=== PATIENT | female | born 1985 ===

== ENCOUNTER 2017-12-18 08:00 | Inpatient (IN) ==
[2017-12-18] MEDS ORDERED: MAG-AL + SIM ORAL LIQUID 30ml PO PRN (08:27)
[2017-12-18] MEDS ORDERED: LIDOCAINE 1% (10mg/ml) 2mL INJ PF SDV ID PRN (08:27)
[2017-12-18] MEDS ORDERED: OXYTOCIN DRIP 30 UNIT/500 ML ML IV PRN (08:27)
[2017-12-18] MEDS ORDERED: METHYLERGONOVINE 0.2 MG/ML INJECTION IM PRN (08:27)
[2017-12-18] MEDS ORDERED: ACETAMINOPHEN 500 MG TABLET PO PRN (08:27)
[2017-12-18] MEDS ORDERED: CALCIUM CARBONATE Chewable 500mg TABLET PO PRN (08:27)
[2017-12-18] MEDS ORDERED: CARBOPROST 250 MCG/ML INJECTION IM PRN (08:27)
--- OUTSIDE RECORDS SUMMARY | 2017-12-18 08:32 | External Medical Summary | Continuity of Care Document ---
:1985 Author Organization [facility] Address [address] [place], [place] [id number] Phone Care Team Providers Name Role Phone Vignesh Antonio MD Unavailable Unavailable Allergies, Adverse Reactions, Alerts Substance Reaction Severity Status Penicillins Rash Unknown Active Medications Medication Instructions Dosage Effective Status Comments Dates (start - stop) chlorhexidine place 15 - Active gluconate 0.12 % milliliter by mouthwash mucous membrane route 2 times every day in the mouth, swish in mouth for 30 seconds then spit out x 7 days butalbital-acetami take 1 - 2 Not Available - Active nophen-caffeine 50 capsule by oral mg-300 mg-40 mg route every 6 capsule hours as needed not to exceed 6 capsules per 24hrs Formula take 1 Tablet by - Active use NDC 28 mg iron-800 mcg Oral route every 92082861815 tablet day Problems Condition Effective Dates (start - stop) Clinical Status Suprvsn of preg w poor reprodctv or - obstet hx, first tri Pap Smear Screening, Cervix - 9 weeks gestation of - Encounter for suprvsn of normal - , first trimester Personal history of dis of the nervous - sys and sense organs Suprvsn of preg w poor reprodctv or - obstet hx, second tri Low lying placenta NOS or w/out - hemorrhage, second trimester 20 weeks gestation of - Personal history of dis of the nervous - sys and sense organs Suprvsn of preg w poor reprodctv or - obstet hx, second tri 17 weeks gestation of - Encounter for suprvsn of normal - , second trimester Personal history of dis of the nervous - sys and sense organs Encounter for suprvsn of normal - , first trimester 13 weeks gestation of - Personal history of dis of the nervous - sys and sense organs Encounter for suprvsn of normal - , second trimester 20 weeks gestation of - Chronic Anemia Active Polycystic Ovarian Syndrome Active Procedures Procedure Date Unknown Results Test Name Date and Time Measure Units Reference Range Abnormal Flag Comments Unknown Advance Directives Directive Yes / No Effective Date File Name Unknown Encounters Encounter Practice Location Reason(s) Diagnoses Date Provider Care Team Description For Visit Members [facility] Suprvsn of preg w Sep-0 Sobbing In Womens poor reprodctv or [facility], obstet hx, second 7 700 PO Box triLow lying Medical 1522, placenta NOS or [facility], w/out hemorrhage, Drive, [place], second Suite , [email or web address] weeks 120, [place] gestation of [place], tel:+ pregnancy[place], [place] [id number], the nervous sys [place]. and sense organs tel:[phone] [facility] Encounter for Sep-0 Jer In Womens Ultrasound suprvsn of normal 7-201 Gabby. Health WANDER, , second 7 700 PO Box [email or web address] weeks Medical 1522, gestation of [facility], Dr [facility], 120, , [facility] [place], tel:[phone] , [place]. tel:[phone] [facility] Aug-2 Jer In Womens 5-201 Gabby. Health WANDER, 7 700 PO Box Medical 1522, Cornelia Kevin, Skyler Small [place], 120, , [place], tel:[phone] [address] , [place]. tel:[phone] Timothy [place] Suprvsn of preg w Aug-2 Jer Referring In Womens poor reprodctv or 2-201 Gabby. Provider: Gregory VIRAMONTES, obstet hx, second 7 700 Vignesh PO [address] [email or web address] weeks Medical Marisela L, 1522, gestation of Center [address] [place] [address], pregnancyEncounte , [facility], r for suprvsn of 120, Drive, , normal , [place], [place], [address]. tel: trimesterPersonal tel: history of dis of , [place]. [phone] the nervous sys tel: and sense organs [phone] Timothy [place] Jul-2 Jer In Womens 1-201 Gabby. Gregory VIRAMONTES, 7 700 PO Box Medical 1522, Center [place], , [facility], 120, , [place], [facility], tel:[phone] , [place]. tel: [phone] Timothy [place] Encounter for May- Jer Referring In Womens suprvsn of normal 4-201 Gabby. Provider: Gregory VIRAMONTES, , first 7 700 Vignesh PO Box [id number] weeks Medical Marisela L, 1522, gestation of Center [address] [place] [address], pregnancyPersonal , [facility], history of dis of [address], Drive, , the nervous sys Nav [place], [place], [address]. tel: tel: , [place]. [phone] tel: [phone] Timothy [place] Suprvsn of preg w Shin-2 Jer Referring In Womens poor reprodctv or 6-201 Gabby. Provider: Gregory VIRAMONTES, obstet hx, first 7 700 Vignesh PO Box triPap Smear Medical Marisela L, 1522, Screening, Center [address] [place] [address], Cervix9 weeks , [facility], gestation of [address], [address], , pregnancyEncounte Nav [place], [place], [address]. tel: normal , tel: [facility] , [place]. [phone] trimesterPersonal tel: history of dis of [id number] the nervous sys and sense organs Associates Nav Feb-2 Jer Referring In Womens 0-200 Gabby. Provider: Gregory VIRAMONTES, 8 700 [facility] Marisela L, 1522, Center [address] Kevin, [facility] [place], 120, Drive, [id number], [place], [address]. tel: [phone] tel: [phone] , . [id number] tel: [phone] Family History Family Member Diagnosis Age At Onset Maternal Grandmother Osteoporosis No family history of Breast Cancer No family history of Stroke No family history of Hypertension No family history of Cardiovascular Disease Maternal Grandmother Renal disease No family history of Lung Disease No family history of Epilepsy No family history of Colon Cancer No family history of Thyroid Disorder Maternal Grandmother Diabetes mellitus Mother Ovarian Cancer Immunizations Vaccine Date Status Comments Unknown Payers Payer name Insurance type Covered republican ID Authorization(s) [employer] [place] - Medicaid MC [id number] Social History Type Description Quantity Date Captured Unknown Vital Signs Date / Height Weight BMI Pulse Blood Temperature Respiratory Body Head BMI Time: Rate Pressure Rate Surface Circumference percentile Area Unknown Chief Complaint And Reason For Visit Unknown Chief Complaint And Reason For Visit Reason For Referral Reason For Referral Unknown Plan Of Care Date Type Action Status Appointment Monika Noel BOOKED Future Order: Radiology Order Complete OB Ultrasound > 14 Ordered Weeks ([id number]) Date Type Problem Goal Intervention Status Start Date Unknown. History Of Present Illness Encounter Date Complaint History Of Present Illness This patient has no known history of present illness Functional Status Encounter Date Functional Assessment Cognitive Assessment Unknown Medications Administered Medication Instructions Dosage Effective Dates (start - stop) Status Comments Drug Treatment Unknown Instructions Date Instruction Additional Information exercise indications for ultrasound influenza vaccine environmental / work hazards travel tobacco (ask, advise, assess, assist and arrange) alcohol illicit / recreational drugs use of any medications (including supplements, vitamins, herbs, OTC drugs) smoking counseling new ob handbook [facility] docs domestic violence HIV and other routine tests risk factors identified by history anticipated course of care nutrition and weight gain counseling, special diet toxoplasmosis precautions (cats / raw meat) sexual activity seat belt use childbirth classes / hospital facilities hospital registration genetic testing
--- OUTSIDE RECORDS SUMMARY | 2017-12-18 08:32 | External Medical Summary | Continuity of Care Document ---
:1985 Author Organization [facility] Address [address] [place], [place] [id number] Phone Care Team Providers Name Role Phone Vignesh Antonio MD Unavailable Unavailable Allergies, Adverse Reactions, Alerts Substance Reaction Severity Status Penicillins Rash Unknown Active Medications Medication Instructions Dosage Effective Status Comments Dates (start - stop) Formula 28 take 1 Tablet by - Active use NDC mg iron-800 mcg Oral route every [id number] tablet day Zofran ODT 4 mg take 1 by Oral Not Available - Active disintegrating route every 6 tablet hours as needed for nausea Keflex 500 mg take 1 capsule by 500 MG - Active capsule ORAL route 3 times every day for 5 days Problems Condition Effective Dates (start - stop) Clinical Status Suprvsn of preg w poor reprodctv or - obstet hx, first tri Pap Smear Screening, Cervix - Encounter for suprvsn of normal - , first trimester 9 weeks gestation of - Personal history of dis of the nervous - sys and sense organs Encounter for suprvsn of normal - , third trimester 30 weeks gestation of - Suprvsn of preg w poor reprodctv or - obstet hx, third tri Encounter for suprvsn of normal - , third trimester 38 weeks gestation of - Suprvsn of preg w poor reprodctv or - obstet hx, second tri Low lying placenta NOS or w/out - hemorrhage, second trimester 20 weeks gestation of - Personal history of dis of the nervous - sys and sense organs Suprvsn of preg w poor reprodctv or - obstet hx, second tri Low lying placenta NOS or w/out - hemorrhage, second trimester Encounter for suprvsn of normal - , second trimester 21 weeks gestation of - Suprvsn of preg w poor reprodctv or - obstet hx, second tri Encounter for suprvsn of normal - , second trimester 17 weeks gestation of - Personal history of dis of the nervous - sys and sense organs Suprvsn of preg w poor reprodctv or - obstet hx, third tri Decreased movements, third - trimester, unsp Low Lying Placenta Nos Or W/out - Hemorrhage, Third Trimester 28 weeks gestation of - Suprvsn of preg w poor reprodctv or - obstet hx, third tri Encounter for suprvsn of normal - , third trimester 28 weeks gestation of - Suprvsn of preg w poor reprodctv or - obstet hx, third tri Abnormal Pap, ASCUS Cervical high risk HPV DNA test positive Encounter for suprvsn of normal - , third trimester 32 weeks gestation of - Suprvsn of preg w poor reprodctv or - obstet hx, third tri 37 weeks gestation of - Suprvsn of preg w poor reprodctv or - obstet hx, third tri Encounter for suprvsn of normal - , third trimester 34 weeks gestation of - Decreased movements, second - trimester, unsp Encounter for suprvsn of normal - , second trimester 23 weeks gestation of - Low Lying Placenta Nos Or W/out - Hemorrhage, Second Trimester Encounter for suprvsn of normal - , second trimester 26 weeks gestation of - Hematuria, unspecified - Encounter for suprvsn of normal - , third trimester 35 weeks gestation of - Encounter for suprvsn of normal - , first trimester 13 weeks gestation of - Personal history of dis of the nervous - sys and sense organs Encounter for suprvsn of normal - , second trimester 20 weeks gestation of - Encounter for suprvsn of normal - , third trimester 37 weeks gestation of - Personal history of dis of the nervous - sys and sense organs Chronic Anemia Active Polycystic Ovarian Syndrome Active Procedures Procedure Date Unknown Results Test Name Date and Time Measure Units Reference Range Abnormal Flag Comments Unknown Advance Directives Directive Yes / No Effective Date File Name Unknown Encounters Encounter Practice Location Reason(s) Diagnoses Date Provider Care Team Description For Visit Members Timothy [place] Suprvsn of preg w Jer In Womens poor reprodctv or 0-201 Gabby. Health [place], obstet hx, third 8 700 PO Box triEncounter for Medical 152, suprvsn of normal [facility], , third Skyler Small, [email or web address] weeks 120, , gestation of [facility] [place], tel: [phone] , [place]. tel: [phone] Timothy [place] Encounter for Dec-0 Ivan Referring In Womens suprvsn of normal 3-201 Crow. 700 Provider: Health WANDER, , third 8 Medical Gabby PO Box [id number] weeks Center Jer L, 1522, gestation of Skyler Small [place], pregnancyPersonal 120, Medical [place], history of dis of [address] [place] [address] , the nervous sys FRANCES, Skyler 120, [place] and sense organs [id number] Terry, tel: , [place]. [place], tel: [phone]. [id number] tel:[phone] Timothy [place] Suprvsn of preg w Daren-0 Jer In Womens Ultrasound poor reprodctv or 3-201 Gabby. Health WANDER, obstet hx, third 8 700 PO Box [email or web address] weeks Medical 1522, gestation of [facility], Skyler Small, 120, [id number], [place], tel:[phone] , [place]. tel: [phone] [facility] Dec-2 Jer In Womens 2-201 Gabby. Health WANDER, 7 700 PO Box Medical 1522, [facility], Skyler Small, 120, [id number], [place], tel:+ [phone] , [place]. tel: [phone] [facility] Hematuria, Dec-2 Jer In Womens unspecifiedEncoun 0-201 Gabby. Health WANDER, [facility] for suprvsn 7 700 PO Box of normal Medical 1522, , third [facility], [email or web address] weeks Skyler Small, gestation of 120, , [place], tel:[phone] , [place]. tel: [phone] [facility] Suprvsn of preg w Dec-1 Jre In Womens poor reprodctv or 3-201 Gabby. Health WANDER, obstet hx, third 7 700 PO Box triEncounter for Medical 1522, suprvsn of normal [facility], , third Skyler Small, [email or web address] weeks 120, [id number], gestation of [place], tel:[phone] , [place]. tel: [phone] [facility] Suprvsn of preg w Nov-2 Jer In Womens poor reprodctv or 9-201 Gabby. Health WANDER, obstet hx, third 7 700 PO Box triAbnormal Pap, Medical 1522, ASCUSCervical [facility], high risk HPV DNA Skyler Small, test 120, , positiveEncounter [facility] for suprvsn of [place], tel:[phone] normal , [phone] third [id number] , [place]. weeks gestation tel: of [phone] [facility] Encounter for Nov-1 Jer In Womens suprvsn of normal 5-201 Gabby. Health [place], , third 7 700 PO Box [id number] weeks Medical 1522, gestation of [facility], Skyler Small, 120, [id number], [place], tel:[phone] , [place]. tel: [phone] [facility] Suprvsn of preg w Nov-0 Jer In Womens poor reprodctv or 1-201 Gabby. Health WANDER, obstet hx, third 7 700 PO Box triEncounter for Medical 1522, suprvsn of normal [facility], , third Skyler Small, [id number] weeks 120, , gestation of [place], [place], tel:901 , [place]. tel: [phone] [facility] Suprvsn of preg w Nov-0 Jer In Womens Ultrasound poor reprodctv or 1-201 Gabby. Health WANDER, obstet hx, third 7 700 PO Box triDecreased Medical 1522, movements, [facility], third trimester, Skyler Small, unspLow Lying 120, , Placenta Nos Or [place], [place] W/out Hemorrhage, [place], tel: Third [id number] [phone] [id number] weeks gestation , [place]. of tel: [phone] Timothy [place] Low Lying Oct-1 Jer Referring In Womens Placenta Nos Or 8-201 Gabby. Provider: Health WANDER, W/out Hemorrhage, 7 700 Gabby PO Box Second Medical Jer L, 1522, TrimesterEncounte Center [address] [place] [address], r for suprvsn of Skyler Small, normal , 120, Center [address] [id number], second Skyler [place] 120, [place] [id number] weeks Terry DANIELS, tel: gestation of [phone] [place], , [place]. [id number]. tel: tel:[phone] [facility] Decreased Sep-2 Jer In Womens movements, second 7-201 Gabby. Health [place], trimester, 7 700 PO Box unspEncounter for Medical 1522, suprvsn of normal Center [place], , second Skyler Small, [email or web address] weeks 120, , gestation of [place], [place], tel: [phone] [address] , [place]. tel: [phone] [facility] Suprvsn of preg w Sep-1 Jer In Womens poor reprodctv or 9-201 Gabby. Health WANDER, obstet hx, second 7 700 PO Box triLow lying Medical 1522, placenta NOS or [facility], w/out hemorrhage, Skyler Small, second 120, , trimesterEncounte [place], r for suprvsn of [place], tel: normal , [phone] [address] second , [place]. [id number] weeks tel: gestation of [phone] [facility] Suprvsn of preg w Sep-0 Sobbing In Womens poor reprodctv or 7-201 Mick. Health WANDER, obstet hx, second 7 700 PO Box triLow lying Medical 1522, placenta NOS or Center [place], w/out hemorrhage, Drive, [place], second Suite , [id number] weeks 120, [place] gestation of [place], tel: pregnancy[place] [address], the nervous sys [place]. and sense organs tel: [phone] [facility] Encounter for Sep-0 Jer In Womens Ultrasound suprvsn of normal 7-201 Gabby. Health WANDER, , second 7 700 PO Box [id number] weeks Medical 1522, gestation of [facility], Skyler Small, 120, , [place], tel:[phone] , [place]. tel: [phone] [facility] Suprvsn of preg w Aug-2 Jer Referring In Womens poor reprodctv or 2-201 Gabby. Provider: Health WANDER, obstet hx, second 7 700 Vignesh PO Box triEncounter for Medical Marisela L, 1522, suprvsn of normal Center 1010 [place], , second Skyler Small [facility], [id number] weeks 120, Drive, , gestation [place], [place], [address]. tel: history of dis of [phone] tel: the nervous sys , [place]. [id number] and sense organs tel: [phone] [facility] Encounter for Jer Referring In Womens suprvsn of normal 4-201 Gabby. Provider: Health WANDER, , first 7 700 Vignesh PO Box [email or web address] weeks Medical Marisela L, 1522, gestation of Center 101 [place], pregnancyPersonal , [facility], history of dis of 120, Drive, , the nervous sys Nav [place], [place], [address]. tel: tel: , [place]. [phone] tel: [phone] [facility] Suprvsn of preg w Shin- Jer Referring In Womens poor reprodctv or 6-201 Gabby. Provider: Health WANDER, obstet hx, first 7 700 Vignesh PO Box triPap Smear Medical Marisela L, 1522, Screening, Center [facility] [place], CervixEncounter , [facility], for suprvsn of 120, Drive, , normal , Nav [place], first trimester9 [place], [address]. tel: weeks gestation tel: , [place]. [phone] pregnancyPersonal tel: history of dis of [phone] the nervous sys and sense organs Associates Nav Fe Jer Referring In Womens 0-200 Gabby. Provider: Gregory VIRAMONTES, 8 700 Vignesh PO Box Medical Marisela L, 1522, Center 101 Kevin, , [facility], 120, Drive, , Nav [place], [facility] [place], [address]. tel: tel: , [place]. [phone] tel: [phone] Family History Family Member Diagnosis Age At [...] Ovarian Cancer Immunizations Vaccine Date Status Comments Tdap completed Source: New Immunization Record Influenza, injectable, completed Source: New Immunization Record quadrivalent, preservative free, 3 yrs or older Payers Payer name Insurance type Covered libertarian ID Authorization(s) [employer] [place] - Medicaid MC [id number] [employer] [place] Medicaid MC [id number] [employer] [place] - Medicaid [place] [id number] Social History Type Description Quantity Date Captured Unknown Vital Signs Date / Height Weight BMI Pulse Blood Temperature Respiratory Body Head BMI Time: Rate Pressure Rate Surface Circumference percentile Area Unknown Chief Complaint And Reason For Visit Unknown Chief Complaint And Reason For Visit Reason For Referral Reason For Referral Unknown Plan Of Care Date Type Action Status Appointment Monika Noel BOOKED Appointment Monika Noel BOOKED Appointment Monika Noel BOOKED Future Order: Radiology Order Ultrasound OB Follow-up ([id number]) Ordered Future Order: Radiology Order Ultrasound OB Follow-up ([id number]) Ordered Future Order: Radiology Order Complete OB Ultrasound > 14 Ordered Weeks ([id number]) Date Type Problem Goal Intervention Status Start [...] supplements, vitamins, herbs, OTC drugs) smoking counseling domestic violence new ob handbook [facility] docs HIV and other routine tests risk factors identified by history anticipated course of care nutrition and weight gain counseling, special diet toxoplasmosis precautions (cats / raw meat) sexual activity seat belt use childbirth classes / hospital facilities hospital registration genetic testing
--- OUTSIDE RECORDS SUMMARY | 2017-12-18 08:32 | External Medical Summary | Continuity of Care Document ---
:1985 Author Organization [email or web address] Address [address] [place], [place] [id number] Phone Care Team Providers Name Role Phone Vignesh Antonio MD Unavailable Unavailable Allergies, Adverse Reactions, Alerts Substance Reaction Severity Status Penicillins Rash Unknown Active Medications Medication Instructions Dosage Effective Status Comments Dates (start - stop) ferrous sulfate 325 take 1 tablet by 325 MG - Active mg (65 mg iron) oral route every tablet day Formula 28 take 1 Tablet by - Active use NDC mg iron-800 mcg Oral route every [id number] tablet day Zofran ODT 4 mg take 1 by Oral Not Available - Active disintegrating route every 6 tablet hours as needed for nausea Problems Condition Effective Dates (start - stop) [...] the nervous - sys and sense organs Low Lying Placenta Nos Or W/out - Hemorrhage, Second Trimester Encounter for suprvsn of normal - , second trimester 26 weeks gestation of - Encounter for suprvsn [...] second trimester 23 weeks gestation of - Encounter for suprvsn of normal - , first trimester 13 weeks gestation of - Personal history of dis of the nervous - sys and sense organs Encounter for suprvsn of normal - , second trimester 20 weeks gestation of - Chronic Anemia Active Polycystic Ovarian Syndrome Active Procedures Procedure Date Colposcopy Of The Cervix Including Upper/adjacent Vagina OB Visit No Charge Results Test Name Date and Time Measure Units Reference Range Abnormal Flag Comments Unknown Advance Directives Directive Yes / No Effective Date File Name Unknown Encounters Encounter Practice Location Reason(s) Diagnoses Date Provider Care Team Description For Visit Members Timothy Stewart Suprvsn of preg w Dec-1 Jer In Womens poor reprodctv or 3-201 Gabby. Health PA, obstet hx, third 7 700 PO Box triEncounter for Medical 1522, suprvsn of normal [facility], third Skyler Small, weeks 120, , gestation of [facility] [place], tel:+ [phone] , [place]. tel: [phone] Timothy Stewart Suprvsn of preg w Nov-2 Jer In Womens poor reprodctv or 9-201 Gabby. Health PA, obstet hx, third 7 700 PO Box triAbnormal Pap, Medical 1522, ASCUSCervical [facility], high risk HPV DNA Skyler Small, test 120, , positiveEncounter [facility] for suprvsn of [place], tel:[phone] normal , [phone] [id number] third [email or web address] , [place]. weeks gestation tel: of [phone] Timothy Stewart Encounter for Nov-1 Jer In Womens suprvsn of normal 5-201 Gabby. [facility], , third 7 700 PO Box [email or web address] weeks Medical 1522, gestation of [facility] Skyler Small, 120, [id number], [facility] [place], tel:[phone] , [place]. tel: [phone] Timothy Stewart Suprvsn of preg w Nov-0 Jer In Womens poor reprodctv or 1-201 Gabby. Health [place], obstet hx, third 7 700 PO Box triEncounter for Medical 1522, suprvsn of [facility], third Skyler Small, [id number] weeks 120, [id number], gestation of [place], [place], tel:[phone] , [place]. tel: [phone] [facility] Suprvsn of preg w Nov-0 Jer In Womens Ultrasound poor reprodctv or 1-201 Gabby. Health PA, obstet hx, third 7 700 PO Box triDecreased Medical 1522, [facility], [facility], Skyler Small, unspLow Lying 120, , Placenta Nos Or [place], [place] W/out Hemorrhage, [place], tel: Third [id number] [phone] weeks gestation , [place]. of tel: [phone] [facility] Low Lying Oct-1 Jer Referring In Womens Placenta Nos Or 8-201 Gabby. Provider: Health PA, W/out Hemorrhage, 7 700 Gabby PO Box Second Medical Jer L, 1522, [facility] [address] [place] [address], r for suprvsn of Skyler Small, normal , 120, Center , second Terry Skyler 120, [place] weeks [place], [place], tel: gestation of [place], , [place]. [id number]. tel: tel: [phone] Associates [facility] Decreased Sep-2 Jer In Womens movements, second 7-201 Gabby. Health PA, trimester, 7 700 PO Box unspEncounter for Medical 1522, suprvsn of normal [facility] [place], , second Skyler Small, [id number] weeks 120, [id number], gestation of [place], [place], tel:[phone] , [place]. tel: [phone] Timothy [place] Suprvsn of preg w Sep-1 Jer In Womens poor reprodctv or 9-201 Gabby. Health PA, obstet hx, second 7 700 PO Box triLow lying Medical 1522, placenta NOS or Center [place], w/out hemorrhage, Skyler Small, second 120, [id number], trimesterEncounte [place], r for suprvsn of [place], tel: normal , [facility] , [place]. [id number] weeks tel: gestation of [phone] [facility] Suprvsn of preg w Sep-0 Sobbing In Womens poor reprodctv or 7-201 Mick. Health WANDER, obstet hx, second 7 700 PO Box triLow lying Medical 1522, placenta NOS or [facility], w/out hemorrhage, Drive, [place], second Suite , [id number] weeks 120, [place] gestation of [place], tel: pregnancyPersonal [place], history of dis of , the nervous sys [place]. and sense organs tel:[phone] Timothy Stewart Encounter for Sep-0 Jer In Womens Ultrasound suprvsn of normal -201 Gabby. Health [place], , second 7 700 PO Box [id number] weeks Medical 1522, gestation of [facility], Dr [facility], 120, , [place], [facility], tel: , [place]. tel:[phone] [facility] Suprvsn of preg w Aug-2 Jer Referring In Womens poor reprodctv or 2-201 Gabby. Provider: Health WANDER, obstet hx, second 7 700 Vignesh PO Box triEncounter for Medical Marisela L, 1522, suprvsn of normal Center [address] [place] [address], , second Dr [facility], [email or web address] weeks 120, Drive, , gestation of Nav [place], [place], [address]. tel: history of dis of [phone] tel: the nervous sys , [place]. [id number] and sense organs tel: [phone] Timothy [place] Encounter for Guero-2 Jer Referring In Womens suprvsn of normal 4-201 Gabby. Provider: Health WANDER, , first 7 700 Vignesh PO Box weeks Medical Marisela L, 1522, gestation of Center [address] [place] [address], pregnancyPersonal Dr [facility], history of dis of [address], Drive, , the nervous sys Nav [place], [place], [address]. tel:[phone] tel: , . [id number] tel: [phone] [facility] Suprvsn of preg w Shin- Jer Referring In Womens poor reprodctv or 6-201 Gabby. Provider: Gregory VIRAMONTES, obstet hx, first 7 700 Vignesh PO Box triPap Smear Medical Marisela L, 1522, Screening, Center 1010 Kevin CervixEncdona Small, [facility], for suprvsn of 120, Drive, [id number], normal , [facility] first trimester9 [place], [address]. tel: weeks gestation [phone] tel: , [place]. [phone] pregnancyPersonal tel: history of dis of [phone] the nervous sys and sense organs Associates Nav Jer Referring In Womens 0-200 Gabby. Provider: Gregory VIRAMONTES, 8 700 Vignesh PO Box Medical Marisela L, 1522, Center [address] Kevin, [facility], [address], Drive, [id number], Nav [place], [place], [address]. tel: [phone] tel: , [place]. [id number] tel: [phone] Family History Family Member Diagnosis Age At [...] Ovarian Cancer Immunizations Vaccine Date Status Comments Influenza, injectable, completed Source: New Immunization Record quadrivalent, preservative free, 3 yrs or older Payers Payer name Insurance type Covered alliance party ID Authorization(s) [employer] [place] Medicaid MC [id number] [employer] [place] [id number] Social History Type Description Quantity Date Captured Alcohol Use Details Caffeine Use Details Unknown Tobacco Use Status Unknown Smoking Status Never smoker Vital Signs Date / Height Weight BMI [...] Future Order: Radiology Order Ultrasound OB Follow-up ([id number]) Ordered Future Order: Radiology Order Complete OB Ultrasound > 14 Ordered Weeks ([id number]) Date Type Problem Goal Intervention Status Start [...]
--- OUTSIDE RECORDS SUMMARY | 2017-12-18 08:32 | External Medical Summary | Continuity of Care Document ---
:1986 Author Organization [facility] Address [address] [place], [place] [id number] Phone Care Team Providers Name Role Phone Vignesh Antonio MD Unavailable Unavailable Allergies, Adverse Reactions, Alerts Substance Reaction Severity Status Penicillins Rash Unknown Active Medications Medication Instructions Dosage Effective Status Comments Dates (start - stop) butalbital-acet take 1 - 2 Not Available - Active aminophen-caffe capsule by oral ine 50 mg-300 route every 6 mg-40 mg hours as needed capsule not to exceed 6 capsules per 24hrs take 1 Tablet by - Active use NDC Formula 28 mg Oral route every [id number] iron-800 mcg day tablet Zofran 4 mg take 1 tablet by 4 MG - Active tablet ORAL route every 8 hours as needed for nausea butalbital-acet take 1 - 2 Not Available - No Longer do not take any aminophen-caffe capsule by oral Active additional ine 50 mg-300 route every 6 tylenol when mg-40 mg hours as needed using this capsule not to exceed 6 medication capsules per 24hrs Problems Condition Effective Dates (start - stop) [...] second tri 17 weeks gestation of - Personal history of dis of the nervous - sys and sense organs Encounter for suprvsn of normal - , second trimester Encounter for suprvsn of normal - , first trimester Personal history of dis of the nervous - sys and sense organs 13 weeks gestation of - Chronic Anemia Active Polycystic Ovarian Syndrome Active Procedures Procedure Date Unknown Results Test Name Date and Time Measure Units Reference Range Abnormal Flag Comments Unknown Advance Directives Directive Yes / No Effective Date File Name Unknown Encounters Encounter Practice Location Reason(s) Diagnoses Date Provider Care Team Description For Visit Members Timothy [place] Suprvsn of preg w Jul- Jer Referring In Womens poor reprodctv or 2-201 Gabby. Provider: Gregory VIRAMONTES, obstet hx, second 7 700 Vignesh PO Box tri17 weeks Medical Marisela L, 1522, gestation of [address], [facility] , [facility], history of dis of [address], Drive, , the nervous sys Nav [place], [place], [address]. tel:+ organsEncounter [phone] tel: for suprvsn of , [place]. [id number] normal , tel: second trimester [phone] Associates [facility] Jul-2 Jer In Womens 1-201 Gabby. Gregory VIRAMONTES, 7 700 PO Box Medical 1522, [address] Kevin, [facility], 120, [id number], [facility], tel:[phone] , [place]. tel: [phone] Timothy [place] Jul-1 Jer In Womens 5-201 Gabby. Gregory VIRAMONTES, 7 700 PO Box Medical 1522, [address] Kevin, [facility], 120, [id number], [facility], tel:[phone] , [place]. tel: [phone] Timothy [place] Encounter for Jer Referring In Womens suprvsn of normal 4-201 Gabby. Provider: Gregory VIRAMONTES, , first 7 700 Vignesh PO Box trimesterPersonal Medical Marisela L, 1522, history of dis of Center 1010 Kevin, the nervous sys , [facility], and sense [email or web address] [address], Drive, , weeks gestation [place], [place], [address]. tel: [phone] tel: , [place]. [id number] tel: [phone] [facility] Suprvsn of preg w Shin- Jer Referring In Womens poor reprodctv or 6-201 Gabby. Provider: Health PA, obstet hx, first 7 700 Vignesh PO Box triPap Smear Medical Marisela L, 1522, Screening, Center [facility] Kevin, CervixEncounter , [facility], for suprvsn of [address], [address], , normal , Nav [place], first trimester9 [place], [address]. tel: weeks gestation of [phone] [facility] [place]. [phone] history of dis of tel: the nervous sys [phone] and sense organs Associates Nav Jer Referring In Womens 0-200 Gabby. Provider: Gregory VIRAMONTES, 8 700 Vignesh PO Box Medical Marisela L, 1522, Center [facility] Dr Kevin, [facility], 120, Drive, , Nav [place], [place], [address]. tel: [phone] tel: , [place]. [id number] tel: [phone] Family History Family Member Diagnosis Age At [...] Unknown Payers Payer name Insurance type Covered libertarian ID Authorization(s) [employer] [place] - Medicaid MC [id number] Social History Type Description Quantity Date Captured [...] Monika Noel BOOKED Appointment Monika Noel BOOKED Date Type Problem Goal Intervention Status Start [...]
--- OUTSIDE RECORDS SUMMARY | 2017-12-18 08:32 | External Medical Summary | Continuity of Care Document ---
:1986 Author Organization [facility] Address [address] [place], [place] [id number] Phone Care Team Providers Name Role Phone Vignesh Antonio MD Unavailable Unavailable Allergies, Adverse Reactions, Alerts Substance Reaction Severity Status Penicillins Rash Unknown Active Medications Medication Instructions Dosage Effective Dates Status Comments (start - stop) chlorhexidine place 15 milliliter - Active gluconate 0.12 % by mucous membrane mouthwash route 2 times every day in the mouth, swish in mouth for 30 seconds then spit out x 7 days Formula 28 take 1 Tablet by - Active use NDC mg iron-800 mcg Oral route every [id number] tablet day Problems Condition Effective Dates (start [...] the nervous - sys and sense organs Decreased movements, second - trimester, unsp Encounter [...] Polycystic Ovarian Syndrome Active Procedures Procedure Date OB Visit No Charge Results Test Name Date and Time Measure Units Reference Range Abnormal Flag Comments Unknown Advance Directives Directive Yes / No Effective Date File Name Unknown Encounters Encounter Practice Location Reason(s) Diagnoses Date Provider Care Team Description For Visit Members Timothy [place] Decreased Sep-2 Jer In Womens movements, second Gabby. Health PA, trimester, 7 700 PO Box unspEncounter for Medical 1522, suprvsn of normal [facility], , second Skyler Small, [email or web address] weeks 120, , gestation of [facility] [place], tel:[phone] , [place]. tel: [phone] [facility] Suprvsn of preg w Sep-1 Jer In Womens poor reprodctv or 9-201 Gabby. Health PA, obstet hx, second 7 700 PO Box triLow lying Medical 1522, placenta NOS or [facility], w/out hemorrhage, Skyler Small, second 120, [id number], trimesterEncounte [place], r for suprvsn of [place], tel:[phone] normal , [phone] [id number] second , [place]. [id number] weeks tel: gestation of [phone] [facility] Suprvsn of preg w Sep-0 Sobbing In Womens poor reprodctv or 7-201 Mick. Health PA, obstet hx, second 7 700 PO Box triLow lying Medical 1522, placenta NOS or [facility], w/out hemorrhage, Drive, [place], second Suite , [email or web address] weeks 120, [place] gestation of [place], tel: pregnancyPersonal [place], history of dis of , the nervous sys [place]. and sense organs tel: [phone] Timothy [place] Encounter for Sep-0 Jer In Womens Ultrasound suprvsn of normal 7-201 Gabby. Health PA, , second 7 700 PO Box [email or web address] weeks Medical 1522, gestation of [facility], Dr [facility], 120, , [place], [place], tel:[phone] , [place]. tel: [phone] Timothy Stewart Suprvsn of preg w Aug-2 Jer Referring In Womens poor reprodctv or 2-201 Gabby. Provider: Health WANDER, obstet hx, second 7 700 Vignesh PO Box triEncounter for Medical Marisela L, 1522, suprvsn of normal Center [address] [place] [address], , second Dr [facility], [email or web address] weeks 120, Drive, , gestation [place] Nav [place], [place], [address]. tel: history of dis of tel: the nervous sys , [place]. [id number] and sense organs tel: [phone] Timothy Stewart Encounter for May-2 Jer Referring In Womens suprvsn of normal 4-201 Gabby. Provider: Health PA, , first 7 700 Vignesh PO Box [email or web address] weeks Medical Marisela L, 1522, gestation of [address], pregnancyPersonal Dr [facility], history of dis of 120, Drive, , the nervous sys Nav [place], [place], [address]. tel:[phone] tel: , [place]. [id number] tel: [phone] [facility] Suprvsn of preg w Jer Referring In Womens poor reprodctv or 6-201 Gabby. Provider: Gregory VIRAMONTES, obstet hx, first 7 700 Vignesh PO Box triPap Smear Medical Marisela L, 1522, Screening, Center 1010 Kevin CervixEncdona Small, [facility], for suprvsn of [address], Drive, [id number], normal , Nav [place], first trimester9 [place], [address]. tel: weeks gestation [phone] tel: , . [phone] pregnancyPersonal tel: history of dis of [phone] the nervous sys and sense organs Associates Nav Jer Referring In Womens 0-200 Gabby. Provider: Gregory VIRAMONTES, 8 700 Vignesh PO Box Medical Marisela L, 1522, Center [address] Dr Kevin, [facility], [address], Drive, [id number], Nav [place], [place], [address]. tel: [phone] tel:[phone] , [place]. [id number] tel: [phone] Family History Family Member Diagnosis Age At [...] Unknown Payers Payer name Insurance type Covered green party ID Authorization(s) [employer] [place] - Medicaid MC [id number] Social History Type Description Quantity Date Captured [...] Complete OB Ultrasound > 14 Ordered Weeks (78253) Date Type Problem Goal Intervention Status Start [...]
--- OUTSIDE RECORDS SUMMARY | 2017-12-18 08:32 | External Medical Summary | Continuity of Care Document ---
:1985 Author Organization [facility] Care Team Providers Name Role Phone TARA ANTONIO MD Unavailable Unavailable Insurance Providers Payer Name Policy Number Subscriber Name Relationship Brooke [facility] [id number] Monika Odonnell D 19 Self / Same As Patient Advance Directives Directive Response Recorded Date/Time Advanced Directives No 12/03/16 8:21am Type Living Will 12/03/16 8:21am Chief Complaint and Reason for Visit Chief Complaint Pain Reason for Visit Ovarian cyst Problems Active Problems Medical Problem Onset Date Status Abdominal pain ~03/19/2014 Resolved Acute upper respiratory infection Unknown Acute Adenotonsillar hypertrophy Unknown Resolved Breast infection Unknown Resolved Carpal tunnel syndrome Unknown Resolved Cellulitis Unknown Resolved Colonoscopy Unknown Resolved Diarrhea ~03/19/2014 Resolved Gastroenteritis ~09/25/2015 Acute HOME MED 05/10/2012 Resolved INTRAUT 05/10/2012 Jaw pain 01/14/2014 Resolved Malaise Unknown Acute Migraine ~09/25/2015 Acute NAUSEA MED GIVEN FOR HOME 05/10/2012 NAUSEA/CRAMPING 05/10/2012 Resolved Nausea and vomiting ~03/19/2014 Resolved Normal delivery procedure 10/15/2012 Resolved Ovarian cyst Unknown Acute Pain in toe 09/20/2013 Resolved Post-op pain Unknown Resolved Post-tonsillectomy hemorrhage ~09/10/2014 Resolved Right shoulder injury Unknown Acute Strep tonsillitis ~07/26/2014 Resolved Toothache 01/14/2014 Resolved Toothache Unknown Acute Upper respiratory infection ~10/21/2015 Acute Urinary tract infection ~09/25/2015 Acute Vaginal bleeding Unknown Acute Viral gastroenteritis Unknown Acute Medications Current Home Medications Medication Dose Units Route Directions Days/Qty Instructions Start Date Acetaminophen 325 Mg ORAL As Needed as 12/03/16 (Tylenol) 325 Mg needed for Pain Ibuprofen (Motrin) 200 Mg ORAL As Needed 12/03/16 200 Mg Oxycodone/Acetamino 1 Tab ORAL Every 4HRS as 12 12/03/16 phen 1 Tab needed for Pain Past Home Medications Medication Directions Ordered Status Acetaminophen 325 Mg Tab, 325 Mg 05/10/12 Discontinued Oral Ondansetron Hcl 4 Mg Tab, 4 Mg Every 6 Hours 05/10/12 Discontinued Oral Ibuprofen 600 Mg Tablet, 600 Mg Every 6 Hours as needed 10/16/12 Discontinued Oral Oxycodone/Acetaminophen 1 Each Q 6H Prn 10/16/12 Discontinued Tablet, 1 Tab Oral Methocarbamol 500 Mg Tablet, 500 Daily 09/20/13 Discontinued Mg Oral Ibuprofen (Motrin) 200 Mg As Needed 01/14/14 Discontinued Tablet, 2-4 Tab Oral Acetaminophen 500 Mg Tablet, 2 As Needed 01/14/14 Discontinued Tab Oral Promethazine Hcl 25 Mg Tab, 25 Every 6 Hours as needed for 03/19/14 Discontinued Mg Oral Abdominal Pain Acetaminophen/Hydrocodone Bitart Every 6 Hours as needed for 03/19/14 Discontinued 1 Each Tablet, 1 Each Oral Pain Polyethylene Glycol 3350 17 Gm As Directed 09/05/14 Discontinued Powd.pack, 17 Gm Oral Methocarbamol 500 Mg Tablet, 1-2 Q 6H Prn 09/06/14 Discontinued Tab Oral [No Meds] , 01/12/15 Discontinued Sulfamethoxazole/Trimethoprim 1 Twice A Day 01/12/15 Discontinued Each Tablet, 1 Tab Oral Tramadol Hcl 50 Mg Tablet, 1-2 Every 6 Hours as needed for 01/12/15 Discontinued Tab Oral Pain Citalopram Hydrobromide 20 Mg Daily 03/22/15 Discontinued Tablet, 20 Mg Oral Ondansetron 4 Mg Tab.rapdis, 4 Every 6 Hours as needed for 09/26/15 Discontinued Mg Oral Nausea Ciprofloxacin 500 Mg Tablet, 500 Twice A Day 09/26/15 Discontinued Mg Oral [No Home Meds] , Unknown Dose As Needed 09/26/15 Discontinued Azithromycin 6 Tab/Pkt Tablet, See Instructions 10/21/15 Discontinued 250 Mg Oral Clindamycin Hcl 300 Mg Capsule, Three Times A Day 12/29/15 Discontinued 300 Mg Oral Tramadol Hcl (Ultram) 50 Mg Every 6 Hours as needed for 12/29/15 Discontinued Tablet, 1-2 Tab Oral Pain Ondansetron Hcl 4 Mg Tab.rapdis, Every 6 Hours for 08/21/16 Discontinued 4 Mg Oral Nausea/Vomiting Cephalexin 500 Mg Capsule, 500 Four Times Daily 10/06/16 Discontinued Mg Oral Social History Query Response Start Date Stop Date Smoking Status Never smoker Hospital Discharge Instructions No hospital discharge instructions. Plan of Care Discharge Date 12/03/16 10:58am Disposition 01 HOME OR SELF-CARE Condition at Discharge Stable Instructions/Education Provided Ovarian Cyst (DC) Prescriptions See Medication Section Referrals TARA ANTONIO MD - Additional Instructions/Education Ibuprofen or Aleve as needed for pain Percocet 5/325 every 4 hours as needed for pain not relieved by over the counter medication Heat/cold per comfort Follow up with Dr. Antonio if not improved in 2-3 days REturn if symptoms worsen Some of your test results may not be complete prior to your leaving the Emergency Department. The Emergency Department is not authorized to give test results over the phone. Please contact the doctor's office listed in this packet of information for your final results. Follow up with your primary care physician or return to the Emergency Department for worsening or worrisome symptoms. * Emergency Department phone number: [phone], x [phone]* MEDICAL RECORD If you need copies of your X-rays, call [phone]. If you need copies of your medical record, including lab results, a signed authorization for release of records will be required. A telephone call for release of Health Information is not allowed. BILLING Billing can sometimes be confusing and frustrating. To help avoid confusion in the future, please take a moment to acquaint yourself with the billing parties for services. [employer] Emergency Room Services [facility] Phys[facility] X-rays [place] [facility] Patients will receive bills for services from the appropriate provider. If you have any questions about your [facility] bill, our staff will be happy to assist you. Please call [phone], and ask for the billing department. THANK YOU for choosing [facility] as your emergency care provider! Care Plan and Goals ~~Discharge Care Plan~~ Problem:pelvic pain Goal:reduce pain Instructions:follow up with pcp Functional Status No functional status results. Allergies, Adverse Reactions, Alerts Allergen Type Severity Reaction Status Last Updated Penicillin Allergy Unknown Active 10/06/16 Hydrocodone Adverse Reaction Mild ITCHING Active 10/06/16 Hydromorphone Adverse Reaction Mild feeling of warmth in head Active 12/03 latex Allergy Mild Active 10/06/16 Immunizations No immunization records. Vital Signs Acute Vital Signs Vital Response Date/Time Temperature (Fahrenheit) 97.4 12/03/2016 10:58am Pulse 78 bpm 12/03/2016 10:58am Respirations 20 12/03/2016 10:58am Height 5 ft 2 in Weight 205 lb Body Mass Index 37.0 kg/m^2 Results Laboratory Results Test Name Result Units Flags Reference Collection Result Comments Date/Time Date/Time White Blood Count 8.54 10^3uL 4.0-11.0 12/03/2016 12/03/2016 8:56am 9:04am Red Blood Count 4.49 10^6uL 4.00-5.00 12/03/2016 12/03/2016 8:56am 9:04am Hemoglobin 12.9 g/dL 12.0-15.5 12/03/2016 12/03/2016 8:56am 9:04am Hematocrit 37.00 % 35.00-45.00 12/03/2016 12/03/2016 8:56am 9:04am Mean Corpuscular 82 FL 80-100 12/03/2016 12/03/2016 Volume 8:56am 9:04am Mean Corpuscular 28.7 PG 26.0-34.0 12/03/2016 12/03/2016 Hemoglobin 8:56am 9:04am Mean Corpuscular 34.9 g/dL 31.0-37.0 12/03/2016 12/03/2016 Hemoglobin Concent 8:56am 9:04am Red Cell 12.8 % 11.8-15.6 12/03/2016 12/03/2016 Distribution Width 8:56am 9:04am Platelet Count 274 10^3uL 150-450 12/03/2016 12/03/2016 8:56am 9:04am Mean Platelet 9.9 FL H 6.0-9.5 12/03/2016 12/03/2016 Volume 8:56am 9:04am Neutrophils (%) 63 % 51-67 12/03/2016 12/03/2016 (Auto) 8:56am 9:04am Lymphocytes (%) 29 % 20-46 12/03/2016 12/03/2016 (Auto) 8:56am 9:04am Monocytes (%) 6 % 3-11 12/03/2016 12/03/2016 (Auto) 8:56am 9:04am Eosinophils (%) 2 % 0-4 12/03/2016 12/03/2016 (Auto) 8:56am 9:04am Basophils (%) 0 % 0-2 12/03/2016 12/03/2016 (Auto) 8:56am 9:04am Neutrophils # 5.4 X10^3 12/03/2016 12/03/2016 (Auto) 8:56am 9:04am Lymphocytes # 2.4 X10^3 12/03/2016 12/03/2016 (Auto) 8:56am 9:04am Monocytes # (Auto) 0.6 X10^3 12/03/2016 12/03/2016 8:56am 9:04am Eosinophils # 0.1 10^3uL 12/03/2016 12/03/2016 (Auto) 8:56am 9:04am Basophils # (Auto) 0.0 10^3uL 12/03/2016 12/03/2016 8:56am 9:04am Urine Collection CLEAN 12/03/2016 12/03/2016 Type CATCH 8:21am 8:37am Urine Color Yellow 12/03/2016 12/03/2016 8:21am 8:37am Urine Clarity Clear 12/03/2016 12/03/2016 8:21am 8:37am Urine pH 7.0 5.0 - 8.0 12/03/2016 12/03/2016 8:21am 8:37am Urine Specific 1.020 1.005-1.030 12/03/2016 12/03/2016 [place] 8:21am 8:37am Urine Protein Negative Negative 12/03/2016 12/03/2016 8:21am 8:37am Urine Glucose (UA) Negative Negative 12/03/2016 12/03/2016 8:21am 8:37am Urine RBC (Auto) Negative Negative 12/03/2016 12/03/2016 8:21am 8:37am Urine Ketones Negative Negative 12/03/2016 12/03/2016 8:21am 8:37am Urine Nitrite Negative Negative 12/03/2016 12/03/2016 8:21am 8:37am Urine Bilirubin Negative Negative 12/03/2016 12/03/2016 8:21am 8:37am Urine Urobilinogen 0.2 mg/dL 0.2-1.0 12/03/2016 12/03/2016 8:21am 8:37am Urine Leukocyte Negative Negative 12/03/2016 12/03/2016 Esterase 8:21am 8:37am Sodium Level 141 mmol/L 135-150 12/03/2016 12/03/2016 8:56am 9:14am Potassium Level 4.1 mmol/L 3.5-5.1 12/03/2016 12/03/2016 8:56am 9:14am Chloride Level 108 mmol/L 98-108 12/03/2016 12/03/2016 8:56am 9:14am Carbon Dioxide 21 mmol/L L 22-29 12/03/2016 12/03/2016 Level 8:56am 9:14am Anion Gap 16.4 MEQ/L H 3-15 12/03/2016 12/03/2016 8:56am 9:14am Blood Urea Nitrogen 9 mg/dL 7-18 12/03/2016 12/03/2016 8:56am 9:14am Creatinine 0.60 mg/dL 0.6-1.2 12/03/2016 12/03/2016 8:56am 9:14am BUN/Creatinine 15 10-20 12/03/2016 12/03/2016 Ratio 8:56am 9:14am Estimat Glomerular 142.0 12/03/2016 12/03/2016 Filtration Rate 8:56am 9:14am Estimated GFR 117.4 12/03/2016 12/03/2016 (Non- 8:56am 9:14am Ug[place] Glucose Level 96 mg/dL 70-110 12/03/2016 12/03/2016 8:56am 9:14am Calculated 271 mosm/L L 280-300 12/03/2016 12/03/2016 Osmolality 8:56am 9:14am Calcium Level 9.3 mg/dL 8.8-10.8 12/03/2016 12/03/2016 8:56am 9:14am Calcium/Ionized 3.9 mg/dL 3.8-4.6 12/03/2016 12/03/2016 Calcium Ratio 8:56am 9:14am Total Bilirubin 0.5 mg/dL 0.1-1.0 12/03/2016 12/03/2016 8:56am 9:14am Alkaline 82 U/L 38-126 12/03/2016 12/03/2016 Phosphatase 8:56am 9:14am Aspartate Amino 20 U/L 15-37 12/03/2016 12/03/2016 Transf (AST/SGOT) 8:56am 9:14am Alanine 31 U/L 30-65 12/03/2016 12/03/2016 Aminotransferase 8:56am 9:14am (ALT/SGPT) Total Protein 7.6 g/dL 6.4-8.5 12/03/2016 12/03/2016 8:56am 9:14am Albumin 4.4 g/dL 3.4-5.0 12/03/2016 12/03/2016 8:56am 9:14am Albumin/Globulin 1.375 1.1-1.8 12/03/2016 12/03/2016 Ratio 8:56am 9:14am Procedures No known history of procedures. Encounters Encounter Location Arrival/Admit Date Discharge/Depart Date Attending Provider Registered Nav 12/03/16 8:12am ARPAN MEDEIROS MD Emergency Room [facility] Recent Diagnosis
--- OUTSIDE RECORDS SUMMARY | 2017-12-18 08:33 | External Medical Summary | Continuity of Care Document ---
:1985 Author Organization [facility] Address [address] [place], [place] [id number] Phone Care Team Providers Name Role Phone Vignesh Antonio MD Unavailable Unavailable Allergies, Adverse Reactions, Alerts Substance Reaction Severity Status Penicillins Rash Unknown Active Medications Medication Instructions Dosage Effective Dates Status Comments (start - stop) Formula take 1 Tablet by - Active use NDC 28 mg iron-800 Oral route every [id number] mcg tablet day Zofran 4 mg take 1 tablet by 4 MG - Active tablet ORAL route every 8 hours as needed for nausea Tylenol Extra take 2 tablet by 1000 MG - Active Strength 500 mg oral route every 6 tablet hours as needed Problems Condition Effective Dates (start - stop) [...] Team Description For Visit Members [facility] May-2 Jer In [employer] 5-201 [facility], 7 [address], [facility], 120, [id number], [place], [place], tel:[phone] , [place]. tel: [phone] Associates [facility] Encounter for May-2 Jer Referring In Womens suprvsn of normal 4-201 Gabby. Provider: Gregory VIRAMONTES, , first 7 700 Vignesh [address] [email or web address] weeks Medical Marisela L, 1522, gestation of Center [facility] [place], pregnancyPersonal , [facility], history of dis of [address], , the nervous sys Kali [place], [place], [address]. tel:[phone] tel: , [place]. [id number] tel: [phone] [facility] Suprvsn of preg w Shin-2 Jer Referring In Womens poor reprodctv or 6-201 Gabby. Provider: Gregory VIRAMONTES, obstet hx, first 7 700 Vignesh [address] triPap Smear Medical Marisela L, 1522, Screening, Center [facility] [place], CervixEncounter , [facility], for suprvsn of [address], [address], [id number], normal , Nav [place], first trimester9 [place], [address]. tel: weeks gestation of [facility] [place]. [id number] history of dis of tel: the nervous sys [id number] and sense organs Timothy Chopra Fe-2 Jer Referring In Womens 0-200 Gabby. Provider: Gregory VIRAMONTES, 8 700 Vignesh [address] Medical Marisela L, 1522, Center [facility] Dr Kevin, [facility], [address], [address], , Nav [place], [place], [address]. tel:[phone] tel: , [place]. [id number] tel: [phone] Family History Family Member Diagnosis Age At [...] [employer] [place] [id number] Social History Type Description Quantity Date Captured Unknown Vital Signs Date / Height Weight BMI Pulse Blood Temperature Respiratory Body Head BMI Time: Rate Pressure Rate Surface Circumference percentile Area Unknown Chief Complaint And Reason For Visit Unknown Chief Complaint And Reason For Visit Reason For Referral Reason For Referral Unknown Plan Of Care Date Type Action Status Appointment Monika Noel BOOKED Date Type Problem [...]
--- OUTSIDE RECORDS SUMMARY | 2017-12-18 08:33 | External Medical Summary | Continuity of Care Document ---
:1985 Author Organization [facility] Address [address] [place], [place] [id number] Phone Care Team Providers Name Role Phone Vignesh Antonio MD Unavailable Unavailable Allergies, Adverse Reactions, Alerts Substance Reaction Severity Status Penicillins Rash Unknown Active Medications Medication Instructions Dosage Effective Dates Status Comments (start - stop) Macrobid 100 mg take 1 Tablet by 5 MG - Active capsule ORAL route 2 times every day Formula take 1 Tablet by - Active use NDC 28 mg iron-800 Oral route every [id number] mcg tablet day Zofran 4 mg take [...] Care Team Description For Visit Members [facility] [place] May-0 Jer In [facility] 3-201 [place]. [facility], 7 700 [address], [place], 120, [id number], [facility], tel: [phone] [address] , [place]. tel: [phone] [facility] May-2 Jer In Womens 8-201 [place]. Gregory VIRAMONTES, 7 700 [address] Kevin, [facility], 120, [id number], [facility], tel: [phone] [address] , . tel: [phone] [facility] Suprvsn of preg w Shin-2 Jer Referring In Womens poor reprodctv or 6-201 Gabby. Provider: Gregory VIRAMONTES, obstet hx, first 7 700 Vignesh [address] triPap Smear Medical Marisela L, 1522, Screening, [address] CervixEncountamisha Small, [facility], for suprvsn of [address], [address], [id number], normal , [facility] [place] first trimester9 [place], [address]. tel: weeks gestation of [phone] [facility] , . [id number] history of dis of tel: the nervous sys [id number] and sense organs Associates Nav Jer Referring In Womens 0-200 Gabby. Provider: Gregory VIRAMONTES, 8 700 Vignesh [address] Medical Marisela L, [address], [address], [facility], [address], [address], , [facility] [place], [address]. tel: [phone] tel: , . [id number] tel: [phone] Family History Family Member Diagnosis Age At [...] Unknown Payers Payer name Insurance type Covered democrat ID Authorization(s) [employer] [place] - Medicaid MC [id number] Social History Type Description Quantity Date Captured Unknown Vital Signs Date / Height Weight BMI Pulse Blood Temperature Respiratory Body Head BMI Time: Rate Pressure Rate Surface Circumference percentile Area Unknown Chief Complaint And Reason For Visit Unknown Chief Complaint And Reason For Visit Reason For Referral Reason For Referral Unknown Plan Of Care Date Type Action Status Appointment Monika Noel KEPT Future Order: Lab Order Pap Smear With HPV Reflex If ASCUS Ordered ([id number]) Date Type Problem Goal Intervention Status Start [...] medications (including supplements, vitamins, herbs, OTC drugs) new ob handbook [facility] docs smoking counseling domestic violence HIV and other routine tests risk factors identified by history anticipated course of care nutrition and weight gain counseling, special diet toxoplasmosis precautions (cats / raw meat) sexual activity seat belt use childbirth classes / hospital facilities hospital registration genetic testing
--- OUTSIDE RECORDS SUMMARY | 2017-12-18 08:33 | External Medical Summary | Continuity of Care Document ---
:1985 Author Organization [facility] Address [address] [place], [place] [id number] Phone Care Team Providers Name Role Phone [...] NDC mg iron-800 mcg Oral route every 45006699511 tablet day Zofran ODT 4 mg take 1 by Oral Not Available - Active disintegrating route every 6 tablet hours as needed for nausea Problems Condition Effective Dates (start - stop) Clinical Status Suprvsn of preg w poor reprodctv or - obstet hx, third tri Encounter for suprvsn of normal - , third trimester 34 weeks gestation of - Suprvsn of preg [...] third trimester 32 weeks gestation of - Decreased movements, second - trimester, unsp Encounter for suprvsn of normal - , second trimester 23 weeks gestation of - Hematuria, unspecified - [...] Team Description For Visit Members [facility] Hematuria, Dec-2 Jer In Womens unspecifiedEncoun 0-201 Gabby. Health WANDER, ter for suprvsn 7 700 PO Box of normal Medical 1522, , third [facility], weeks Skyler Small, gestation of 120, , [facility] [place], tel:[phone] , [place]. tel: [phone] Timothy [place] Suprvsn of preg w Dec-1 Jer In Womens poor reprodctv or 3-201 Gabby. Health WANDER obstet hx, third 7 700 PO Box triEncounter for Medical 1522, suprvsn of normal [facility], , third Skyler Small, [id number] weeks 120, , gestation of [facility] [place], tel:[phone] , [place]. tel: [phone] Timothy [place] Suprvsn of preg w Nov-2 Jer In Womens poor reprodctv or 9-201 Gabby. Health WANDER, obstet hx, third 7 700 PO Box triAbnormal Pap, Medical 1522, ASCUSCervical [facility], high risk HPV DNA Skyler Small, test 120, , positiveEncounter [facility] for suprvsn of [place], tel:[phone] normal , [phone] [id number] third [id number] , [place]. weeks gestation tel: of [phone] Timothy [place] Encounter for Nov-1 Jer In Womens suprvsn of normal 5-201 Gabby. Health [place], , third 7 700 PO Box [id number] weeks Medical 1522, gestation of [facility], Skyler Small, 120, [id number], [place], tel:[phone] , [place]. tel: [phone] [facility] Suprvsn of preg w Nov-0 Jer In Womens poor reprodctv or 1-201 Gabby. Health PA, obstet hx, third [address] [facility] Medical 1522, suprvsn of normal [facility], , third Skyler Small, [email or web address] weeks 120, [id number], gestation of [place], tel:[phone] , [place]. tel: [phone] [facility] Suprvsn of preg w Nov-0 Jer In Womens Ultrasound poor reprodctv or 1-201 Gabby. Health PA, obstet hx, third 7 700 PO Box triDecreased Medical 1522, movements, [facility], third trimester, Skyler Small, unspLow Lying 120, , Placenta Nos Or [place], [place] W/out Hemorrhage, [place], tel: Third [id number] [phone] [id number] weeks gestation , [place]. of tel: [phone] [facility] Low Lying Oct-1 Jer Referring In Womens Placenta Nos Or 8-201 Gabby. Provider: Health PA, W/out Hemorrhage, 7 700 Gabby PO Box Second Medical Jer L, 1522, [facility] [address] [place] [address], r for suprvsn of Skyler Small, normal , 120, Center [id number], second Terry Skyler 120, [place] [id number] weeks Terry DANIELS, tel: gestation of [place], , [place]. [id number]. tel: tel: [phone] Associates [facility] Decreased Sep-2 Jer In Womens movements, second 7-201 Gabby. Health PA, trimester, 7 700 PO Box unspEncounter for Medical 1522, suprvsn of normal [facility], , second Skyler Small, [id number] weeks 120, [id number], gestation of [place], [place], tel:[phone] , [place]. tel: [phone] [facility] Suprvsn of preg w Sep-1 Jer In Womens poor reprodctv or 9-201 Gabby. Health WANDER, obstet hx, second 7 700 PO Box triLow lying Medical 1522, placenta NOS or [facility] [place], w/out hemorrhage, Skyler Small, second 120, , trimesterEncounte [facility] r for suprvsn of [place], tel: normal , second , [place]. [id number] weeks tel: gestation of [phone] [facility] Suprvsn of preg w Sep-0 Sobbing In Womens poor reprodctv or 7-201 Mick. Health WANDER, obstet hx, second 7 700 PO Box triLow lying Medical 1522, placenta NOS or [facility] [place], w/out hemorrhage, [place], [place], second Suite , [id number] weeks 120, [place] gestation of [place], [place]: [place] [address], the nervous sys [place]. and sense organs tel: [phone] Timothy [place] Encounter for Sep-0 Jer In Womens Ultrasound suprvsn of normal 7-201 Gabby. Health WANDER, , second 7 700 PO Box [email or web address] weeks Medical 1522, gestation of [facility], Skyler Small, 120, , [place], tel:[phone] , [place]. tel: [phone] [facility] Suprvsn of preg w Aug-2 Jer Referring In Womens poor reprodctv or 2-201 Gabby. Provider: Health WANDER, obstet hx, second 7 700 Vignesh PO Box triEncounter for Medical Marisela L, 1522, suprvsn of normal Center [address] [place], , second Skyler Small [place], weeks 120, Drive, , gestation [place], [place], [address]. tel: history of dis of [id number] tel: the nervous sys , [place]. [id number] and sense organs tel: [phone] [facility] Encounter for Guero-2 Jer Referring In Womens suprvsn of normal 4-201 Gabby. Provider: Gregory VIRAMONTES, , first 7 700 Vignesh PO Box [id number] weeks Medical Marisela L, 1522, gestation of Center [address] [place] [address], pregnancyPersonal , [facility], history of dis of 120, Drive, [id number], the nervous sys [place], [place], [address]. tel:[phone] tel: , [place]. [id number] tel: [phone] [facility] Suprvsn of preg w Shin-2 Jer Referring In Womens poor reprodctv or 6-201 Gabby. Provider: Gregory VIRAMONTES, obstet hx, first 7 700 Vignesh PO Box triPap Smear Medical Marisela L, 1522, Screening, Center [facility] [place], CervixEncounter , [facility], for suprvsn of 120, Drive, [id number], normal , Nav [place] first trimester9 [place], [address]. tel: weeks gestation [phone] tel: , [place]. [phone] pregnancyPersonal tel: history of dis of [id number] the nervous sys and sense organs Associates Nav Fe-2 Jer Referring In Womens 0-200 Gabby. Provider: Gregory VIRAMONTES, 8 700 Vignesh PO Box Medical Marisela L, 1522, Center [facility] Kevin, , [facility], [address], Drive, [id number], [place], [address]. tel:[phone] tel: , [place]. [id number] tel: [phone] Family History Family Member Diagnosis Age At [...] [employer] - Medicaid MC [id number] [place] - Medicaid MC [id number] Social History Type Description Quantity Date Captured Alcohol Use Details Caffeine Use Details combo occasional per day Tobacco Use Status Never smoked tobacco Smoking Status Never smoker Vital Signs Date / Height Weight BMI Pulse Blood Temperature Respiratory Body Head BMI Time: Rate Pressure Rate Surface Circumference percentile Area Unknown Chief Complaint And Reason For Visit Unknown Chief Complaint And Reason For Visit Reason For Referral Reason For Referral Unknown Plan Of Care Date Type Action Status Appointment Monika Noel With [facility] Appointment Monika Noel BOOKED Appointment Monika oNel BOOKED Appointment Monika Noel BOOKED Appointment Monika Noel BOOKED Future Order: Radiology Order Ultrasound OB Follow-up Ordered ([id number]) Future Order: Radiology Order Complete OB Ultrasound > Ordered 14 Weeks ([id number]) Date Type Problem Goal Intervention Status Start [...]
--- OUTSIDE RECORDS SUMMARY | 2017-12-18 08:33 | External Medical Summary | Continuity of Care Document ---
:1986 Author Organization [facility] Address [address] [place], [place] [address] Phone Care Team Providers Name Role Phone Vignesh Antonio MD Unavailable Unavailable Allergies, Adverse Reactions, Alerts Substance Reaction Severity Status Penicillins Rash Unknown Active Medications Medication Instructions Dosage Effective Status Comments Dates (start - stop) Formula take 1 Tablet by - Active use NDC 28 mg iron-800 mcg Oral route [id number] tablet every day Zofran ODT 4 mg take 1 by Oral Not Available - Active disintegrating route every 6 tablet hours as needed for nausea Keflex 500 mg take 1 capsule 500 MG - Active capsule by ORAL route 3 times every day for 5 days nitrofurantoin take 1 by Oral Not Available - No Longer monohydrate/macroc route every 12 Active rystals 100 mg hours for 10 capsule days Problems Condition Effective Dates (start - stop) Clinical Status Hematuria, unspecified - Encounter for suprvsn of normal - , third trimester 35 weeks gestation of - Suprvsn of preg [...] Procedures Procedure Date OB Visit No Charge - [employer] Results Test Name Date and Time Measure Units Reference Range Abnormal Flag Comments Panel Description: Bacteria identified in Urine by Culture CULTURE, URINE, SEE NOTE CULTURE, URINE, ROUTINE MICRO ROUTINE 16:04:00 NUMBER: [id number] TEST STATUS: FINAL SPECIMEN SOURCE: URINE SPECIMEN QUALITY: ADEQUATE RESULT: Multiple organisms present, each less than 10,000 CFU/mL. These organisms, commonly found on external and internal genitalia, are considered to be colonizers. No further testing performed.REPORT COMMENT:RFASTING:UNKNOWNTest performed at [id number] [place] [address]Mmqpwueb: MARTHA URRUTIA DO,MPH Advance Directives Directive Yes / No Effective Date File Name Unknown Encounters Encounter Practice Location Reason(s) Diagnoses Date Provider Care Team Description For Visit Members Timothy [place] Suprvsn of preg w Dec- Jer In Womens poor reprodctv or 0-201 Gabby. Health PA, obstet hx, third 8 700 PO Box [facility] 1522, suprvsn of [facility] [place], , third Skyler Small, [email or web address] weeks 120, [id number], gestation of [place], [place], tel: [phone] , [place]. tel: [phone] Associates [facility] Encounter for Daren-0 Ivan Referring In Womens suprvsn of normal 3-201 Crow. 700 Provider: Health WANDER, , third 8 Medical Gabby PO Box [email or web address] weeks Center Jer L, 1522, gestation of Skyler Smallchita, pregnancyPersonal 120, Medical [place], history of dis of [place] , the nervous sys [place], Skyler 120, [place] and sense organs [place], tel: , [place]. [place], tel:[phone]. [id number] tel:[phone] [facility] Suprvsn of preg w Daren-0 Jer In Womens Ultrasound poor reprodctv or 3-201 Gabby. Health WANDER, obstet hx, third 8 700 PO Box tri37 weeks Medical 1522, gestation of [facility], Skyler Small, 120, [id number], [place], tel:[phone] , [place]. tel: [phone] [facility] Hematuria, Dec-2 Jer In Womens unspecifiedEncoun 0-201 Gabby. Health WANDER, ter for suprvsn 7 700 PO Box of [facility] 1522, , third [place], [id number] weeks Skyler Small, gestation of 120, , [place], [place], tel:[phone] , [place]. tel: [phone] Timothy [place] Suprvsn of preg w Dec-1 Jer In Womens poor reprodctv or 3-201 Gabby. Health WANDER, obstet hx, third 7 700 PO Box triEncounter for Medical 1522, suprvsn of normal [facility], , third Skyler Small, [id number] weeks 120, [id number], gestation of [place], [place], tel:[phone] , [place]. tel: [phone] Timothy [place] Suprvsn of preg w Nov-2 Jer In Womens poor reprodctv or 9-201 Gabby. Health WANDER, obstet hx, third 7 700 PO Box triAbnormal Pap, Medical 1522, ASCUSCervical [facility], high risk HPV DNA Skyler Small, test 120, , positiveEncounter [place], for suprvsn of [place], tel:+ normal , [phone] third [id number] , [place]. weeks gestation tel: of [phone] [facility] Encounter for Nov-1 Jer In Womens suprvsn of normal 5-201 Gabby. Health PA, , third 7 700 PO Box [email or web address] weeks Medical 1522, gestation of [facility], Skyler Small, 120, , [place], [place], tel:[phone] , [place]. tel: [phone] [facility] Suprvsn of preg w Nov-0 Jer In Womens poor reprodctv or 1-201 Gabby. Health WANDER, obstet hx, third 7 700 PO Box triEncounter for Medical 1522, suprvsn of normal [facility], , third Skyler Small, [id number] weeks 120, , gestation of [place], [place], tel:114901 , [place]. tel: [phone] [facility] Suprvsn of preg w Nov-0 Jer In Womens Ultrasound poor reprodctv or 1-201 Gabby. Health WANDER, obstet hx, third 7 700 PO Box triDecreased Medical 1522, movements, [facility], third trimester, Skyler Small, unspLow Lying 120, , Placenta Nos Or [place], [place] W/out Hemorrhage, [place], tel: Third [id number] weeks gestation , [place]. of tel: [phone] [facility] Low Lying Oct-1 Jer Referring In Womens Placenta Nos Or 8-201 Gabby. Provider: Health WANDER, W/out Hemorrhage, 7 700 Gabby PO Box Second Medical Jer L, 1522, Trimester[facility]ounte Center [address] [place] [address], for suprvsn of Skyler Small, normal , 120, Center [address] [id number], second Skyler [place] 120, [place] [id number] weeks [place], tel: gestation of [place], , [place]. [id number]. tel: tel: [phone] Associates Terry Decreased Sep-2 Jer In Womens movements, second - Gabby. Health PA, trimester, 7 700 PO Box unspEncounter for Medical 1522, suprvsn of normal [place], , second Skyler Small, [id number] weeks 120, , gestation of [place], [place], tel: , [place]. tel: [phone] Timothy [place] Suprvsn of preg w Sep-1 Jer In Womens poor reprodctv or 9-201 Gabby. Health PA, obstet hx, second 7 700 PO Box triLow lying Medical 1522, placenta NOS or Center [place], w/out hemorrhage, Skyler Small, second 120, , trimesterEncounte [place], r for suprvsn of [place], tel: normal , [phone] [id number] second , [place]. [id number] weeks tel: gestation of [phone] [facility] Suprvsn of preg w Sep-0 Sobbing In Womens poor reprodctv or 7-201 Mick. Health PA, obstet hx, second 7 700 PO Box triLow lying Medical 1522, placenta NOS or Center [place], w/out hemorrhage, Drive, [place], second Suite , [email or web address] weeks 120, [place] gestation of [place], tel: [place] [address], the nervous sys [place]. and sense organs tel: [phone] Associates Terry Encounter for Sep-0 Jer In Womens Ultrasound suprvsn of normal 7-201 Gabby. Health PA, , second 7 700 PO Box [email or web address] weeks Medical 1522, gestation of [place], Skyler Small, 120, [id number], [place], [place], tel:[phone] , [place]. tel: [phone] [facility] Suprvsn of preg w Aug-2 Jer Referring In Womens poor reprodctv or 2-201 Gabby. Provider: Gregory VIRAMONTES, obstet hx, second 7 700 Vignesh PO Box triEncounter for Medical Marisela L, 1522, suprvsn of normal Center [address] [place] [address], , second Dr, [facility], [id number] weeks 120, Drive, [id number], gestation of Nav [place], [place], [address]. tel: history of dis of tel: the nervous sys , [place]. [id number] and sense organs tel: [phone] Associates Terry Encounter for May-2 Jer Referring In Womens suprvsn of normal 4-201 Gabby. Provider: Gregory VIRAMONTES, , first 7 700 Vignesh PO Box [id number] weeks Medical Marisela L, 1522, gestation of [address], pregnancyPersonal Dr, [facility], history of dis of 120, Drive, [id number], the nervous sys Nav [place], [place], [address]. tel: tel: , [place]. [id number] tel: [phone] [facility] Suprvsn of preg w Shin-2 Jer Referring In Womens poor reprodctv or 6-201 Gabby. Provider: Gregory VIRAMONTES, obstet hx, first 7 700 Vignesh PO Box triPap Smear Medical Marisela L, 1522, Screening, Center [address] [place] [address], CervixEncounter , [facility], for suprvsn of 120, Drive, [id number], normal , Nav [place], first trimester9 [place], [address]. tel: weeks gestation [phone] tel: , [place]. [phone] pregnancyPersonal tel: history of dis of [id number] the nervous sys and sense organs Associates Nav Fe-2 Jer Referring In Womens 0-200 Gabby. Provider: Gregory VIRAMONTES, 8 700 [facility] Medical Marisela L, 1522, Center [address] Kevin, [facility], 120, Drive, [id number], Nav [place], [place], [address]. tel:-[phone] tel:[phone] , [place]. [id number] tel: [phone] Family History Family Member Diagnosis Age At [...] [employer] - Medicaid MC [id number] [place] Medicaid MC [id number] [place] - Medicaid MC [id number] Social History Type Description Quantity Date Captured Alcohol Use Details Caffeine Use Details Unknown Tobacco Use Status Unknown Smoking Status Never smoker Vital Signs Date / Height Weight BMI Pulse Blood Temperature Respiratory Body Head BMI Time: Rate Pressure Rate Surface Circumference percentile Area 80.00 14.4 / lbs 9 mm[Hg] 3:44 kg/m PM eter (2) Chief Complaint And Reason For Visit Unknown Chief Complaint And Reason For Visit Reason For Referral Reason For Referral Unknown Plan Of Care Date Type Action Status Appointment Monika Noel BOOKED Appointment Monika Noel BOOKED Appointment Monika Noel BOOKED Future Order: Radiology Order Ultrasound OB Follow-up ([id number]) Ordered Future Order: Radiology Order Ultrasound OB Follow-up ([id number]) Ordered Future Order: Radiology Order Complete OB Ultrasound > 14 Ordered Weeks ([id number]) Date Type Problem Goal Intervention Status Start [...]
--- OUTSIDE RECORDS SUMMARY | 2017-12-18 08:33 | External Medical Summary | Continuity of Care Document ---
:1986 Author Organization [email or web address] Address [address] [place], [place] [address] Phone Care Team Providers Name Role Phone [...] 28 mg iron-800 mcg Oral route every [id number] tablet day Problems Condition Effective Dates (start [...] lying Medical 1522, placenta NOS or Center [place], w/out hemorrhage, [facility], [place]), [place], second Suite , [id number] weeks 120, [place] gestation of [place], tel:+ [place] [address], the nervous sys [place]. and sense organs tel: [phone] Associates [place] Encounter for Sep-0 Jer In Womens Ultrasound suprvsn of normal 7-201 Gabby. Gregory VIRAMONTES, , second 7 700 PO Box [id number] weeks Medical 1522, gestation of Center [place], [facility], 120, [id number], [place], [place], tel:[phone] [address] , [place]. tel: [phone] [facility] Suprvsn of preg w Aug-2 Jer Referring In Womens poor reprodctv or 2-201 Gabby. Provider: Gregory VIRAMONTES, obstet hx, second 7 700 Vignesh PO Box triEncounter for Medical Marisela L, 1522, suprvsn of normal Center [address] [place], , second Dr [facility], [email or web address] weeks 120, Drive, , gestation of [place], [place], [address]. tel: history of dis of tel: the nervous sys , [place]. [id number] and sense organs tel: [phone] Associates Terry Aug-2 Jer In Womens 1-201 Gabby. Gregory VIRAMONTES, 7 700 PO Box Medical 1522, [place], , [facility], 120, , [place], [place], tel:[phone] , [place]. tel: [phone] [facility] Terry Encounter for Guero-2 Jer Referring In Womens suprvsn of normal 4-201 Gabby. Provider: Gregory VIRAMONTES, , first 7 700 Vignesh PO Box [email or web address] weeks Medical Marisela L, 1522, gestation of [address], pregnancyPersonal , [facility], history of dis of 120, Drive, , the nervous sys [place], [place], [address]. tel: tel: , [place]. [id number] tel: [phone] [facility] Suprvsn of preg w Shin-2 Jer Referring In Womens poor reprodctv or 6-201 Gabby. Provider: Gregory VIRAMONTES, obstet hx, first 7 700 Vignesh PO Box triPap Smear Medical Marisela L, 1522, Screening, Center [facility] [place], Cervix9 weeks , [facility], gestation of 120, Drive, , pregnancyEncounte [place], [place], [address]. tel: normal , tel: [facility] , . [phone] trimesterPersonal tel: history of dis of [id number] the nervous sys and sense organs Associates Nav Feb-2 Jer Referring In Womens 0-200 Gabby. Provider: Gregory VIRAMONTES, 8 700 Vignesh PO Box Medical Marisela L, 1522, Center [facility] Dr Kevin, [facility], 120, Drive, [id number], [place], [address]. tel:-[phone] tel:[phone] , . [id number] tel: [phone] Family History Family Member Diagnosis Age At [...] [employer] - Medicaid MC [id number] Social History Type Description Quantity Date Captured [...] Complete OB Ultrasound > 14 Ordered Weeks (00295) Date Type Problem Goal Intervention Status Start [...]
--- OUTSIDE RECORDS SUMMARY | 2017-12-18 08:33 | External Medical Summary | Continuity of Care Document ---
:1985 Author Organization [facility] Address [address] [place], [place] [id number] Phone Care Team Providers Name Role Phone [...] NDC mg iron-800 mcg Oral route every [id number] tablet day Zofran ODT 4 mg take 1 by Oral Not Available - Active disintegrating route every 6 tablet hours as needed for nausea Problems Condition Effective Dates (start - stop) Clinical Status Encounter for suprvsn of normal - , [...] second trimester 26 weeks gestation of - Suprvsn of preg [...] Members Associates Terry Suprvsn of preg w Nov-2 Jer In Womens poor reprodctv or 9-201 Gabby. Health PA, obstet hx, third 7 700 PO Box triAbnormal Pap, Medical 1522, ASCUSCervical [facility], high risk HPV DNA Skyler Small, test 120, , positiveEncounter [facility] for suprvsn of [place], tel:+ normal , [phone] third [email or web address] , [place]. weeks gestation tel: of [phone] Associates Terry Encounter for Nov-1 Jer In Womens suprvsn of normal 5-201 Gabby. Health PA, , third 7 700 PO Box [email or web address] weeks Medical 1522, gestation of [facility], Skyler Small, 120, , [place], tel:[phone] , [place]. tel: [phone] [facility] Suprvsn of preg w Nov-0 Jer In Womens poor reprodctv or 1-201 Gabby. Health PA, obstet hx, third 7 700 PO Box triEncounter for Medical 1522, suprvsn of normal [facility], , third Skyler Small, [email or web address] weeks 120, , gestation of [facility] [place], tel:[phone] , [place]. tel: [phone] Timothy [place] Suprvsn of preg w Nov-0 Jer In Womens Ultrasound poor reprodctv or 1-201 Gabby. Health PA, obstet hx, third 7 700 PO Box triDecreased Medical 1522, movements, [facility], third trimester, Skyler Small, unspLow Lying 120, , Placenta Nos Or [place], W/out Hemorrhage, [place], tel:[phone] Third Glpqsonls65 [id number] weeks gestation , [place]. of tel: [phone] Associates [facility] Low Lying Oct-1 Jer Referring In Womens Placenta Nos Or 8-201 Gabby. Provider: Health PA, W/out Hemorrhage, 7 700 Gabby PO Box Second Medical Jer L, 1522, TrimesterEncounte Center 700 [place], r for suprvsn of Skyler Small, normal , 120, Center Dr , second Skyler [place] 120, [place] [email or web address] weeks Terry DANIELS, tel: gestation of [place], , [place]. [id number]. tel: tel: [phone] Associates Terry Decreased Sep-2 Jer In Womens movements, second 7-201 Gabby. Health PA, trimester, 7 700 PO Box unspEncounter for Medical 1522, suprvsn of normal Center [place], , second Skyler Small, [id number] weeks 120, , gestation of [place], tel: , [place]. tel: [phone] [facility] Suprvsn of preg w Sep-1 Jer In Womens poor reprodctv or 9-201 Gabby. Health PA, obstet hx, second 7 700 PO Box triLow lying Medical 1522, placenta NOS or Center [place], w/out hemorrhage, Skyler Small, second 120, , trimesterEncounte [place], r for suprvsn of [place], tel: normal , second , [place]. weeks tel: gestation of [phone] Associates [facility] Suprvsn of preg w Sep-0 Sobbing In Womens poor reprodctv or 7-201 Mick. Health PA, obstet hx, second 7 700 PO Box triLow lying Medical 1522, placenta NOS or Center [place], w/out hemorrhage, FRANCES Posey, second Suite , weeks 120, [place] gestation of Terry, tel: [place] [address], the nervous sys [place]. and sense organs tel: [phone] Associates [facility] Encounter for Sep-0 Jer In Womens Ultrasound suprvsn of normal 7-201 Gabby. Health WANDER, , second 7 700 PO Box [id number] weeks Medical 1522, gestation of [facility], [facility], 120, [id number], [place], [facility], tel:901 , [place]. tel: [phone] Timothy [place] Suprvsn of preg w Aug-2 Jer Referring In Womens poor reprodctv or 2-201 Gabby. Provider: Health WANDER, obstet hx, second 7 700 Vignesh PO Box triEncounter for Medical Marisela L, 1522, suprvsn of normal Center [address] [place] [address], , second , [facility], [email or web address] weeks 120, Drive, , gestation of Nav [place], [place], [address]. tel: history of dis of tel: the nervous sys , [place]. [id number] and sense organs tel: [phone] Timothy [place] Encounter for May- Jer Referring In Womens suprvsn of normal 4-201 Gabby. Provider: Gregory VIRAMONTES, , first 7 700 Vignesh PO Box [email or web address] weeks Medical Marisela L, 1522, gestation of Center [address] [place] [address], pregnancyPersonal , [facility], history of dis of [address], [address], , the nervous sys Nav [place], [place], [address]. tel:[phone] tel: , [place]. [id number] tel: [phone] Timothy [place] Suprvsn of preg w Shin-2 Jer Referring In Womens poor reprodctv or 6-201 Gabby. Provider: Gregory VIRAMONTES, obstet hx, first 7 700 Vignesh PO Box triPap Smear Medical Marisela L, 1522, Screening, Center [address] [place] [address], CervixEncounter Dr [facility], for suprvsn of 120, Drive, [id number], normal , Nav [place], first trimester9 [place], [address]. tel: weeks gestation [phone] tel: of , [place]. [id number] pregnancyPersonal tel: history of dis of [phone] the nervous sys and sense organs Associates Nav Jan- Jer Referring In Womens 0-200 Gabby. Provider: Gregory VIRAMONTES, 8 700 [facility] Amanda Medical Marisela L, 1522, Center [address] Kevin, [facility], [address], Drive, [id number], [place], [address]. tel: [phone] tel: [phone] , [place]. [id number] tel: [phone] Family History Family Member Diagnosis Age At [...] [employer] [place] Medicaid [place] [id number] [employer] [place] - Medicaid MC [id number] Social History Type Description Quantity Date Captured [...] Future Order: Radiology Order Ultrasound OB Follow-up ([id number]) Ordered Future Order: Radiology Order Complete OB Ultrasound > 14 Ordered Weeks ([id number]) Date Type Problem Goal Intervention Status Start [...]
--- OUTSIDE RECORDS SUMMARY | 2017-12-18 08:33 | External Medical Summary | Continuity of Care Document ---
:1986 Author Organization [facility] Care Team Providers Name Role Phone TARA HOGAN MD Unavailable Unavailable Insurance Providers Payer Name Policy Number Subscriber Name Relationship Self Pay Monika Myers 18 Self / Same As Patient Advance Directives Directive Response Recorded Date/Time Advanced Directives No 12/05/16 6:00pm Type Living Will 12/05/16 6:00pm Chief Complaint and Reason for Visit Chief Complaint Pain Reason for Visit Headache Problems Active Problems Medical Problem Onset Date Status Abdominal pain ~03/19/2014 Resolved Acute upper respiratory infection Unknown Acute Adenotonsillar hypertrophy Unknown Resolved Breast infection Unknown Resolved Carpal tunnel syndrome Unknown Resolved Cellulitis Unknown Resolved Colonoscopy Unknown Resolved Diarrhea ~03/19/2014 Resolved Gastroenteritis ~09/25/2015 Acute HOME MED 05/10/2012 Resolved Headache ~12/05/2016 Acute INTRAUT 05/10/2012 Jaw pain 01/14/2014 Resolved Malaise [...] discharge instructions. Plan of Care Discharge Date 12/05/16 7:37pm Disposition 01 HOME OR SELF-CARE Condition at Discharge Stable Instructions/Education Provided Migraine Headache (DC) Prescriptions See Medication Section Referrals TARA HOGAN MD - Additional Instructions/Education Home to bed. See your PCP next week re: Headaches. Some of your test results may not [...] worrisome symptoms. * Emergency Department phone number: [phone], x [phone]* MEDICAL RECORD If you need copies of your X-rays, call [phone] x [phone]. If you need copies of [...] the billing parties for services. SERVICE BILLING DEMOCRAT Emergency Room Services [facility] Physician Services [facility] X-rays [facility] Patients will receive bills for services from the appropriate provider. If you have any questions about your [facility] bill, our staff will be happy to assist you. Please call [phone], and ask for the billing department. THANK YOU for choosing [facility] as your emergency care provider! Care Plan and Goals ~~Discharge Care Plan~~ Problem: Headache Goal: Decreased level of pain. Return to usual activities. Instructions: Take medication(s) as directed; follow up with primary care physician as directed; follow patient home care instructions. Home to rest in a quiet dark room. Functional Status No functional status results. Allergies, Adverse Reactions, Alerts Allergen Type Severity Reaction Status Last Updated Penicillin Allergy Unknown Active 12/05/16 Hydrocodone Adverse Reaction Mild ITCHING Active 12/05/16 Hydromorphone Adverse Reaction Mild feeling of warmth in head Active 12/05 latex Allergy Mild Active 12/05/16 Immunizations No immunization records. Vital Signs Acute Vital Signs Vital Response Date/Time Temperature (Fahrenheit) 98.1 12/05/2016 7:50pm Pulse 75 bpm 12/05/2016 7:50pm Respirations 16 12/05/2016 7:50pm Height 5 ft 2 in Weight 189 lb Body Mass Index 34.0 kg/m^2 Results Laboratory Results Test Name Result [...] 8:37am Urine Specific 1.020 1.005-1.030 12/03/2016 12/03/2016 [place] 8:21am 8:37am Urine Protein Negative Negative 12/03/2016 [...] GFR 117.4 12/03/2016 12/03/2016 (Non- 8:56am 9:14am [place] Glucose Level 96 mg/dL 70-110 12/03/2016 12/03/2016 [...] Location Arrival/Admit Date Discharge/Depart Date Attending Provider Departed [place] 12/05/16 6:01pm 12/05/16 7:37pm [facility] BRE Gibson MD Registered [place] [facility] Departed [place] 12/03/16 8:12am 12/03/16 10:58am ARPAN MEDEIROS MD [facility] Recent Diagnosis
--- OUTSIDE RECORDS SUMMARY | 2017-12-18 08:34 | External Medical Summary | Continuity of Care Document ---
:1986 Author Organization [facility] Address [address] [place], [place] [address] Phone Care Team Providers Name Role Phone Vignesh Antonio MD Unavailable Unavailable Allergies, Adverse Reactions, Alerts Substance Reaction Severity Status Penicillins Rash Unknown Active Medications Medication Instructions Dosage Effective Dates Status Comments (start - stop) ferrous sulfate 325 take 1 tablet by 325 MG - Active mg (65 mg iron) oral route every tablet day chlorhexidine place 15 milliliter - Active gluconate 0.12 % by mucous membrane mouthwash route 2 times every day in the mouth, swish in mouth for 30 seconds then spit out x 7 days Formula 28 take 1 Tablet by - Active use NDC mg iron-800 mcg Oral route every [id number] tablet day Problems Condition Effective Dates (start [...] third trimester 28 weeks gestation of - Decreased movements, second [...] Members Timothy [place] Suprvsn of preg w Nov-0 Jer In Womens poor reprodctv or [facility], obstet hx, third 7 700 PO Box [facility], suprvsn of normal [facility], , third Skyler Small, [email or web address] weeks 120, , gestation of [place], [place], tel:901 , [place]. tel: [phone] [facility] Suprvsn of preg w Nov-0 Jer In Womens Ultrasound poor reprodctv or 1-201 Gabby. Health WANDER, obstet hx, third 7 700 PO Box triDecreased Medical 1522, movements, [facility], third trimester, Skyler Small, unspLow Lying 120, , Placenta Nos Or [place], [place] W/out Hemorrhage, [place], tel: Third [id number] weeks gestation , [place]. of tel: [phone] Associates [facility] Oct-1 Jer In Womens 9-201 Gabby. Gregory VIRAMONTES, 7 700 PO Box Medical 1522, [facility], Skyler Small, 120, [id number], [place], tel:901 , [place]. tel: [phone] [facility] Low Lying Oct-1 Jer Referring In Womens Placenta Nos Or 8-201 Gabby. Provider: Gregory VIRAMONTES, W/out Hemorrhage, 7 700 Gabby PO Box Second Medical Jer L, 1522, TrimesterEncounte Center [address] [place] [address], r for suprvsn of Skyler Small, normal , 120, Center , second Skyler [place] 120, [place] [id number] weeks Terry DANIELS, tel: gestation of [place], , [place]. . tel: tel: [phone] Associates Terry Decreased Sep-2 Jer In Womens movements, second 7-201 Gabby. Health PA, trimester, 7 700 PO Box [facility] 1522, suprvsn of normal [facility], , second Skyler Small, [email or web address] weeks 120, [id number], gestation of [place], [place], tel:901 , [place]. tel: [phone] [facility] Suprvsn of preg w Sep-1 Jer In Womens poor reprodctv or 9-201 Gabby. Health PA, obstet hx, second 7 700 PO Box triLow lying Medical 1522, placenta NOS or [facility] [place], w/out hemorrhage, Skyler Small, second 120, [id number], trimesterEncounte [facility] r for suprvsn of [place], tel: normal , [phone] [id number] second , [place]. [email or web address] weeks tel: gestation of [phone] Associates Trery Suprvsn of preg w Sep-0 Sobbing In Womens poor reprodctv or 7-201 Mick. Health PA, obstet hx, second 7 700 PO Box triLow lying Medical 1522, placenta NOS or [facility] [place], w/out hemorrhage, [place], [place], second Suite , [email or web address] weeks 120, [place] gestation of Terry, tel: pregnancyPersonal [place], history of dis of , the nervous sys [place]. and sense organs tel: [phone] Associates [facility] Encounter for Sep-0 Jer In Womens Ultrasound suprvsn of normal 7-201 Gabby. Health WANDER, , second 7 700 PO Box [id number] weeks Medical 1522, gestation of [facility] [place], Skyler Small, 120, [id number], [place], [facility], tel:[phone] , [place]. tel: [phone] [facility] Suprvsn of preg w Aug-2 Jer Referring In Womens poor reprodctv or 2-201 Gabby. Provider: Health WANDER, obstet hx, second 7 700 Vignesh PO Box triEncounter for Medical Marisela L, 1522, suprvsn of normal Center 1010 [place], , second Skyler Small [facility], [id number] weeks 120, Drive, , gestation [place], [place], [address]. tel: history of dis of [id number] tel: the nervous sys , [place]. [id number] and sense organs tel:[phone] Associates [facility] Encounter for May-2 Jer Referring In Womens suprvsn of normal 4-201 Gabby. Provider: Gregory VIRAMONTES, , first 7 700 Vignesh PO Box [id number] weeks Medical Marisela L, 1522, gestation of Center 1010 [place], pregnancyPersonal , [facility], history of dis of 120, Drive, [id number], the nervous sys [place], [place], [address]. tel:[phone] tel:[phone] , [place]. [id number] tel: [phone] [facility] Suprvsn of preg w Shin-2 Jer Referring In Womens poor reprodctv or 6-201 Gabby. Provider: Gregory VIRAMONTES, obstet hx, first 7 700 Vignesh PO Box triPap Smear Medical Marisela L, 1522, Screening, Center [facility]0 [place], CervixEncounter , [facility], for suprvsn of 120, Drive, [id number], normal , Nav [place] first [place]9 [place], [address]. tel: weeks gestation [phone] tel: , [place]. [phone] pregnancyPersonal tel: history of dis of [phone] the nervous sys and sense organs Associates Nav Fe-2 Jer Referring In Womens 0-200 Gabby. Provider: Gregory VIRAMONTES, 8 700 Vignesh PO Box Medical Marisela L, 1522, Center [facility] Kevin, , [facility], [address], Drive, [id number], Nav [place], [place], [address]. tel: [phone] tel: , [place]. [id number] tel: [phone] Family History Family Member Diagnosis Age At [...] older Payers Payer name Insurance type Covered democrat ID Authorization(s) [place] Medicaid MC [id number] [place] [place] Medicaid [place] [id number] Social History Type Description Quantity Date Captured [...] Future Order: Radiology Order Ultrasound OB Follow-up ([id number]) Ordered Future Order: Radiology Order Complete OB Ultrasound > 14 Ordered Weeks ([id number]) Date Type Problem Goal Intervention Status Start [...]
--- OUTSIDE RECORDS SUMMARY | 2017-12-18 08:34 | External Medical Summary | Continuity of Care Document ---
:1986 Author Organization [facility] [facility] [facility] Address [address] [place], [place] [id number] Phone Care Team Providers Name Role Phone [...] NDC mg iron-800 mcg Oral route every [id number] tablet day Problems Condition Effective Dates (start [...] Team Description For Visit Members Associates Terry Decreased Sep-2 Jer In Womens movements, second Gabby. Health PA, trimester, 7 700 PO Box unspEncounter for Medical 1522, suprvsn of normal [facility], , second Skyler Small, [id number] weeks 120, , gestation of [facility] [place], tel:[phone] , [place]. tel:[phone] Associates Terry Sep-2 Jer In Womens 7-201 Gabby. Health PA, 7 700 PO Box Medical 1522, [place], Skyler Small, 120, [id number], [place], [place], tel:[phone] 779369 , [place]. tel:[phone] Associates [facility] Suprvsn of preg w Sep-1 Jer In Womens poor reprodctv or 9-201 Gabby. Health PA, obstet hx, second 7 700 PO Box triLow lying Medical 1522, placenta NOS or [facility], w/out hemorrhage, Skyler Small, second 120, , trimesterEncounte [place], r for suprvsn of [place], tel: normal , [phone] [id number] second , [place]. [email or web address] weeks tel: gestation of [phone] Associates [facility] Suprvsn of preg w Sep-0 Sobbing In Womens poor reprodctv or 7-201 Mick. Health WANDER, obstet hx, second 7 700 PO Box triLow lying Medical 1522, placenta NOS or [facility], w/out hemorrhage, Drive, [place], second [id number], [email or web address] weeks 120, [place] gestation of [place], tel: pregnancy[place] [address], the nervous sys [place]. and sense organs tel:[phone] Timothy [place] Encounter for Sep-0 Jer In Womens Ultrasound suprvsn of normal 7-201 Gabby. Health WANDER, , second 7 700 PO Box [id number] weeks Medical 1522, gestation of [facility], Skyler Small [place], 120, , [place], [place], tel: , [place]. tel:[phone] Associates [facility] Suprvsn of preg w Aug-2 Jer Referring In Womens poor reprodctv or 2-201 Gabby. Provider: Gregory VIRAMONTES, obstet hx, second 7 700 Vignesh PO Box triEncounter for Medical Marisela L, 1522, suprvsn of normal Center [address] [place] [address], , second Dr [facility], [id number] weeks 120, Drive, , gestation of Nav [place], [place], [address]. tel: history of dis of [phone] tel: the nervous sys , [place]. [id number] and sense organs tel: [phone] Associates Terry Encounter for Guero-2 Jer Referring In Womens suprvsn of normal 4-201 Gabby. Provider: Health WANDER, , first 7 700 Vignesh PO Box [id number] weeks Medical Marisela L, 1522, gestation of [address], pregnancyPersonal Dr, [facility], history of dis of 120, Drive, , the nervous sys Nav [place], [place], [address]. tel:[phone] tel: , [place]. [id number] tel: [phone] Associates Terry Suprvsn of preg w Shin-2 Jer Referring In Womens poor reprodctv or 6-201 Gabby. Provider: Health WANDER, obstet hx, first 7 700 Vignesh PO Box triPap Smear Medical Marisela L, 1522, Screening, Center 1010 Kevin CervixEncounter , [facility], for suprvsn of [address], Drive, , normal , Nav [place] first trimester9 [place], [address]. tel: weeks gestation [phone] tel: , [place]. [id number] pregnancyPersonal tel: history of dis of [id number] the nervous sys and sense organs Associates Nav Jan- Jer Referring In Womens 0-200 Gabby. Provider: Gregory VIRAMONTES, 8 700 Vignesh PO Box Medical Marisela L, 1522, Center [address] Dr Kevin, [facility], 120, Drive, , [place], [address]. tel: [phone] tel: , [place]. [id number] tel: [phone] Family History Family Member Diagnosis Age At [...] [employer] [place] - Medicaid MC [id number] Social History Type Description Quantity Date Captured [...] Complete OB Ultrasound > 14 Ordered Weeks ([id number]) Date Type Problem Goal Intervention Status Start [...]
--- OUTSIDE RECORDS SUMMARY | 2017-12-18 08:34 | External Medical Summary | Continuity of Care Document ---
:1986 Author Organization [facility] Address [address] [place], [place] [phone] Phone Care Team Providers Name Role Phone [...] NDC mg iron-800 mcg Oral route every [id number] tablet day Zofran ODT 4 mg take [...] PO Box triAbnormal Pap, Medical 1522, ASCUSCervical [facility], high risk HPV DNA Skyler Small, test 120, , [facility] of [place], tel:+ normal , [phone] [id number] third [id number] , [place]. weeks gestation tel: of [phone] Associates Terry Encounter for Nov-1 Jer In Womens suprvsn of normal 5-201 Gabby. Health PA, , third 7 700 PO Box [id number] weeks Medical 1522, gestation of [facility] Skyler Small, 120, , [facility] [place], tel: [phone] , [place]. tel: [phone] Associates [facility] Nov-1 Jer In Womens 1-201 Gabby. Health PA, 7 700 PO Box Medical 1522, [facility], Skyler Small, 120, , [facility] [place], tel:[phone] , [place]. tel: [phone] Timothy [place] Suprvsn of preg w Nov-0 Jer In Womens poor reprodctv or 1-201 Gabby. Health PA, obstet hx, third 7 700 PO Box triEncounter for Medical 1522, suprvsn of normal [facility], , third Skyler Small, [email or web address] weeks 120, [id number], gestation of [facility] [place], tel: [phone] , [place]. tel: [phone] [facility] Suprvsn of preg w Nov-0 Jer In Womens Ultrasound poor reprodctv or 1-201 Gabby. Health PA, obstet hx, third 7 700 PO Box triDecreased Medical 1522, movements, [facility], third trimester, Skyler Small, unspLow Lying 120, , Placenta Nos Or [place], [place] W/out Hemorrhage, [place], tel: Third [id number] weeks gestation , [place]. of tel: [phone] Associates [facility] Low Lying Oct-1 Jer Referring In Womens Placenta Nos Or 8-201 Gabby. Provider: Health PA, W/out Hemorrhage, 7 700 Gabby PO Box Second Medical Jer L, 1522, TrimesterEncounte Center [facility] [place], r for suprvsn of Skyler Small, normal , 120, Center , second Terry [facility] 120, [place] [id number] weeks KSTerry, tel: gestation of [place], , [place]. . tel: tel: [phone] Associates Terry Decreased Sep-2 Jer In Womens movements, second 7-201 Gabby. Health PA, trimester, 7 700 PO Box unspEncounter for Medical 1522, suprvsn of normal [facility] [place], , second Skyler Small, [email or web address] weeks 120, , gestation of [place], tel:901 , [place]. tel: [phone] [facility] Suprvsn of preg w Sep-1 Jer In Womens poor reprodctv or 9-201 Gabby. Health WANDER, obstet hx, second 7 700 PO Box triLow lying Medical 1522, placenta NOS or [facility] [place], w/out hemorrhage, Skyler Small, second 120, [id number], trimesterEncounte [place], r for suprvsn of FRANCES, tel: normal , [phone] [id number] second , [place]. [id number] weeks tel: gestation of [phone] [facility] Suprvsn of preg w Sep-0 Sobbing In Womens poor reprodctv or 7-201 Mick. Health PA, obstet hx, second 7 700 PO Box triLow lying Medical 1522, placenta NOS or [facility] [place], w/out hemorrhage, Kalpesh, FRANCES, second [id number], [id number] weeks 120, [place] gestation of [place], tel: [place] [address], the nervous sys [place]. and sense organs tel: [phone] Timothy [place] Encounter for Sep-0 Jer In Womens Ultrasound suprvsn of normal 7-201 Gabby. Health WANDER, , second 7 700 PO Box [email or web address] weeks Medical 1522, gestation of [facility], [facility], 120, [id number], [place], [place], tel:[phone] , [place]. tel: [phone] Timothy Steawrt Suprvsn of preg w Aug-2 Jer Referring In Womens poor reprodctv or 2-201 Gabby. Provider: Gregory VIRAMONTES, obstet hx, second 7 700 Vignesh PO Box triEncounter for Medical Marisela L, 1522, suprvsn of normal Center [address] [place] [address], , second , [facility], [email or web address] weeks 120, Drive, [id number], gestation [place] Nav [place], [place], [address]. tel: history of dis of [id number] tel: the nervous sys , [place]. [id number] and sense organs tel: [phone] Timothy [place] Encounter for Guero-2 Jer Referring In Womens suprvsn of normal 4-201 Gabby. Provider: Gregory VIRAMONTES, , first 7 700 Vignesh PO Box [email or web address] weeks Medical Marisela L, 1522, gestation of [address], pregnancyPersonal , [facility], history of dis of 120, Drive, [id number], the nervous sys Nav [place], [place], [address]. tel:[phone] tel: , [place]. [id number] tel: [phone] Timothy [place] Suprvsn of preg w Shin-2 Jer Referring In Womens poor reprodctv or 6-201 Gabby. Provider: Gregory VIRAMONTES, obstet hx, first 7 700 Vignesh PO Box triPap Smear Medical Marisela L, 1522, Screening, Center [address] [place] [address], CervixEncounter Dr [facility], for suprvsn of 120, Drive, , normal , Nav [place], first trimester9 [place], [address]. tel: weeks gestation [phone] tel: , . [phone] pregnancyPersonal tel: history of dis of [id number] the nervous sys and sense organs Associates Nav Jan-2 Jer Referring In Womens 0-200 Gabby. Provider: [facility] WANDER, 8 700 [facility] Medical Marisela L, 1522, Center [address] Kevin, [facility], 120, Drive, [id number], Nav [place], [place], [address]. tel: [phone] tel:[phone] , [place]. [id number] tel: [phone] Family History Family Member Diagnosis Age At [...] older Payers Payer name Insurance type Covered green party ID Authorization(s) [employer] [place] Medicaid MC [id number] [employer] [place] - Medicaid MC [id number] Social History Type Description Quantity Date Captured [...] Future Order: Radiology Order Ultrasound OB Follow-up (33404) Ordered Future Order: Radiology Order Complete OB Ultrasound > 14 Ordered Weeks ([id number]) Date Type Problem Goal Intervention Status Start [...]
--- OUTSIDE RECORDS SUMMARY | 2017-12-18 08:34 | External Medical Summary | Continuity of Care Document ---
:1986 Author Organization [facility] Address [address] [place], [place] [phone] Phone Care Team Providers Name Role Phone [...] NDC mg iron-800 mcg Oral route every [id number] tablet day Zofran ODT 4 mg take [...] Polycystic Ovarian Syndrome Active Procedures Procedure Date Ultrasnd preg uterus, flwup/repeat Results Test Name Date and Time Measure Units Reference Range Abnormal Flag Comments Unknown Advance Directives Directive Yes / No Effective Date File Name Unknown Encounters Encounter Practice Location Reason(s) Diagnoses Date Provider Care Team Description For Visit Members Timothy [place] Encounter for Jer In Womens suprvsn of normal 5-201 Gabby. Health PA, , third 7 700 PO Box [email or web address] weeks Medical 1522, gestation of [facility], Skyler Small, 120, [id number], [place], tel:[phone] , [place]. tel: [phone] Associates [facility] Suprvsn of preg w Nov-0 Jer In Womens poor reprodctv or 1-201 Gabby. Health PA, obstet hx, third 7 700 PO Box triEncounter for Medical 1522, suprvsn of normal [facility], , third Skyler Small, [id number] weeks 120, [id number], gestation of [place], [place], tel:901 , [place]. tel: [phone] [facility] Suprvsn of preg w Nov-0 Jer In Womens Ultrasound poor reprodctv or 1-201 Gabby. Health PA, obstet hx, third 7 700 PO Box triDecreased Medical 1522, movements, [facility], third trimester, Skyler Small, unspLow Lying 120, , Placenta Nos Or [place], [place] W/out Hemorrhage, [place], tel: Third Patefcrps34 [phone] 196790 weeks gestation , [place]. of tel: [phone] Associates [facility] Low Lying Oct-1 Jer Referring In Womens Placenta Nos Or 8-201 Gabby. Provider: Health PA, W/out Hemorrhage, 7 700 Gabby PO Box Second Medical Jer L, 1522, [facility]ucsf [facility] [address], r for suprvsn of Skyler Small, normal , 120, Center , second Terry Skyler 120, [place] [id number] weeks KSTerry, tel: gestation of [place], , [place]. [id number]. tel: tel: [phone] Associates Terry Decreased Sep-2 Jer In Womens movements, second 7-201 Gabby. Health PA, trimester, 7 700 PO Box unspEncounter for Medical 1522, suprvsn of normal [facility], , second Skyelr Small, [email or web address] weeks 120, , gestation of [place], [place], tel:[phone] , [place]. tel: [phone] Associates [facility] Suprvsn of preg w Sep-1 Jer In Womens poor reprodctv or 9-201 Gabby. Health WANDER, obstet hx, second 7 700 PO Box triLow lying Medical 1522, placenta NOS or [facility], w/out hemorrhage, Skyler Small [place], second 120, , trimesterEncounte [place], r for suprvsn of [place], tel: normal , [phone] 196790 second , [place]. [email or web address] weeks tel: gestation of [phone] [facility] Suprvsn of preg w Sep-0 Sobbing In Womens poor reprodctv or 7-201 Mick. Health WANDER, obstet hx, second 7 700 PO Box triLow lying Medical 1522, placenta NOS or Center [place], w/out hemorrhage, [place], [place], second Suite , [email or web address] weeks 120, [place] gestation of [place], tel: [place] [address], the nervous sys [place]. and sense organs tel: [phone] Associates [facility] Encounter for Sep-0 Jer In Womens Ultrasound suprvsn of normal 7-201 Gabby. Gregory VIRAMONTES, , second 7 700 PO Box [email or web address] weeks Medical 1522, gestation of Center [place], Skyler Small, 120, , [place], [place], tel:[phone] , [place]. tel: [phone] [facility] Suprvsn of preg w Aug-2 Jer Referring In Womens poor reprodctv or 2-201 Gabby. Provider: Gregory VIRAMONTES, obstet hx, second 7 700 Vignesh PO Box triEncounter for Medical Marisela L, 1522, suprvsn of normal Center [address] [place], , second Skyler Small [place], [email or web address] weeks 120, Drive, , gestation [place], [place], [address]. tel:+ history of dis of [phone] tel: the nervous sys , [place]. [id number] and sense organs tel: [phone] Associates [facility] Encounter for May- Jer Referring In Womens suprvsn of normal 4-201 Gabby. Provider: Gregory VIRAMONTES, , first 7 700 Vignesh PO Box [email or web address] weeks Medical Marisela L, 1522, gestation of Center [address] [place] [address], pregnancyPersonal , [facility], history of dis of 120, Drive, [id number], the nervous sys [place], [place], [address]. tel: tel: , [place]. [id number] tel: [phone] Associates [facility] Suprvsn of preg w Shin- Jer Referring In Womens poor reprodctv or 6-201 Gabby. Provider: Gregory VIRAMONTES, obstet hx, first 7 700 Vignesh PO Box triPap Smear Medical Marisela L, 1522, Screening, Center [address] [place] [address], CervixEncounter , [facility], for suprvsn of 120, Drive, [id number], normal , Nav [place] first [place]9 [place], [address]. tel: weeks gestation [phone] tel: , [place]. [phone] pregnancyPersonal tel: history of dis of [id number] the nervous sys and sense organs Associates Nav Fe- Jer Referring In Womens 0-200 Gabby. Provider: Gregory VIRAMONTES, 8 700 Vignesh PO Box Medical Marisela L, 1522, Center [address] Dr Kevin, [facility], 120, Drive, [id number], [place], [address]. tel: tel: , [place]. [phone] tel: [phone] Family History Family Member Diagnosis Age At [...] older Payers Payer name Insurance type Covered constitution party ID Authorization(s) [employer] [place] Medicaid MC [id number] [employer] [place] Medicaid MC [id number] Social History Type Description Quantity Date Captured [...] Future Order: Radiology Order Ultrasound OB Follow-up ([id number]) Ordered Future Order: Radiology Order Complete OB Ultrasound > 14 Ordered Weeks ([id number]) Date Type Problem Goal Intervention Status Start [...]
--- OUTSIDE RECORDS SUMMARY | 2017-12-18 08:34 | External Medical Summary | Continuity of Care Document ---
:1986 Author Organization [facility] Address [address] [place], [place] [phone] Phone Care Team Providers Name Role Phone [...] 28 mg iron-800 mcg Oral route every [id number] tablet day Problems Condition Effective Dates (start [...] or [facility], w/out hemorrhage, Drive, [place], second Suite , weeks 120, [place] gestation of [place], tel:+ [place] [address], the nervous sys [place]. and sense organs tel: [phone] Associates Terry Encounter for Sep-0 Jer In Womens Ultrasound suprvsn of normal 7-201 Gabby. Gregory VIRAMONTES, , second 7 700 PO Box [id number] weeks Medical 1522, gestation of [facility], , [facility], 120, , [place], tel: [phone] [address] , [place]. tel: [phone] Associates [facility] Suprvsn of preg w Aug-2 Jer Referring In Womens poor reprodctv or 2-201 Gabby. Provider: Gregory VIRAMONTES, obstet hx, second 7 700 Vignesh PO Box tri17 weeks Medical Marisela L, 1522, gestation of [address] pregnancyEncounte , [facility], r for suprvsn of 120, Drive, , normal , [place], [place], [address]. tel: trimesterPersonal tel: history of dis of , [place]. [id number] the nervous sys tel: and sense organs [phone] Associates Terry Jul-2 Jer In Womens 1-201 Gabby. Gregory VIRAMONTES, 7 700 PO Box Medical 1522, [place], , [facility], 120, , [place], [place], tel:[address]49[address] , [place]. tel: [phone] Associates [facility] Encounter for May- Jer Referring In Womens suprvsn of normal 4-201 Gabby. Provider: Gregory VIRAMONTES, , first 7 700 Vignesh PO Box [id number] weeks Medical Marisela L, 1522, gestation of [address], pregnancyPersonal , [facility], history of dis of 120, Drive, , the nervous sys [place], [place], [address]. tel: tel: , [place]. [id number] tel: [phone] [facility] Suprvsn of preg w Shin-2 Jer Referring In Womens poor reprodctv or 6-201 Gabby. Provider: Gregory VIRAMONTES, obstet hx, first 7 700 Vignesh PO Box triPap Smear Medical Marisela L, 1522, Screening, [address], Cervix9 weeks , [facility], gestation of 120, Drive, , pregnancyEncounte Nav [place], [place], [address]. tel: normal , tel: first , [place]. [phone] trimesterPersonal tel: history of dis of [id number] the nervous sys and sense organs Associates Nav Fe-2 Jer Referring In Womens 0-200 Gabby. Provider: Gregory VIRAMONTES, 8 700 Vignesh PO Box Medical Marisela L, 1522, Center [facility] Dr Kevin, [facility], 120, Drive, , Nav [place], [place], [place], [address]. tel:-[phone] tel:[phone] , . [id number] tel: [phone] Family History Family Member Diagnosis Age At [...] [employer] [place] - Medicaid [place] [id number] Social History Type Description Quantity Date Captured [...] Complete OB Ultrasound > 14 Ordered Weeks (63696) Date Type Problem Goal Intervention Status Start [...]
--- OUTSIDE RECORDS SUMMARY | 2017-12-18 08:34 | External Medical Summary | Continuity of Care Document ---
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 [place], tel:[phone] , [place]. tel: [phone] Associates [facility] Suprvsn of preg w Sep-1 Jer In Womens poor reprodctv or 9201 Gabby. Health PA, obstet hx, second 7 700 PO Box triLow lying Medical 1522, placenta NOS or [facility] [place], w/out hemorrhage, Skyler Small, second 120, [id number], trimesterEncounte [place], r for suprvsn of [place], tel:+ normal , [phone] [address] [facility] , [place]. almgoiklj09 weeks tel: gestation of [phone] Associates [facility] Suprvsn of preg w Sep-0 Sobbing In Womens poor reprodctv or 7-201 Mick. Health PA, obstet hx, second 7 700 PO Box triLow lying Medical 1522, placenta NOS or [facility], w/out hemorrhage, Drive, [place], second Suite , [id number] weeks 120, [place] gestation of [place], tel: pregnancyPersonal [place], history of dis of , the nervous sys [place]. and sense organs tel: [phone] Timothy [place] Encounter for Sep-0 Jer In Womens Ultrasound suprvsn of normal 7-201 Gabby. Health PA, , second 7 700 PO Box weeks Medical 1522, gestation of [facility], Dr [facility], 120, , [place], [place], tel:[phone] , [place]. tel:[phone] Associates [facility] Suprvsn of preg w Aug-2 Jer Referring In Womens poor reprodctv or 2-201 Gabby. Provider: Health WANDER, obstet hx, second 7 700 Vignesh PO Box triEncounter for Medical Marisela L, 1522, suprvsn of normal Center [address] [place] [address], , second Dr [facility], [id number] weeks 120, Drive, , gestation [place], [place], [address]. tel: history of dis of tel: the nervous sys , [place]. [id number] and sense organs tel: [phone] Timothy [place] Encounter for May- Jer Referring In Womens suprvsn of normal 4-201 Gabby. Provider: Health PA, , first 7 700 Vignesh PO Box weeks Medical Marisela L, 1522, gestation of Center [address] [place] [address], pregnancyPersonal Dr [facility], history of dis of 120, Drive, , the nervous sys [place], [place], [address]. tel:[phone] tel: , [place]. [id number] tel:[phone] Associates [facility] Suprvsn of preg w Jer Referring In Womens poor reprodctv or 6-201 Gabby. Provider: Gregory VIRAMONTES, obstet hx, first 7 700 Vignesh PO Box triPap Smear Medical Marisela L, 1522, Screening, Center [address] Kevin CervixEncountamisha Small, [facility], for suprvsn of 120, Drive, [id number], normal , Nav [place], first trimester9 [place], [address]. tel: weeks gestation [phone] tel: , . [phone] pregnancyPersonal tel: history of dis of [id number] the nervous sys and sense organs Associates Nav Jer Referring In Womens 0-200 Gabby. Provider: Gregory VIRAMONTES, 8 700 Vignesh PO Box Medical Marisela L, 1522, Center [address] Dr Kevin, [facility], 120, Drive, [id number], Nav [place], [place], [address]. tel: [phone] tel: , . [id number] tel: [phone] Family History Family Member Diagnosis Age At [...] Unknown Payers Payer name Insurance type Covered alliance party ID Authorization(s) [employer] [place] - Medicaid MC [id number] Social History Type Description Quantity Date Captured Alcohol Use Details Caffeine Use Details Unknown Tobacco Use Status Unknown Smoking Status Never smoker Vital Signs Date / Height Weight BMI Pulse Blood Temperature Respiratory Body Head BMI Time: Rate Pressure Rate Surface Circumference percentile Area 209.20 37.8 / lbs 9 mm[Hg] 10:26 kg/m AM eter (2) Chief Complaint And Reason For Visit Unknown Chief Complaint And Reason For Visit Reason For Referral Reason For Referral Unknown Plan Of Care Date Type Action Status Future Order: Radiology Order Complete OB Ultrasound > 14 Ordered Weeks ([id number]) Date Type Problem Goal Intervention Status Start [...]
--- OUTSIDE RECORDS SUMMARY | 2017-12-18 08:34 | External Medical Summary | Continuity of Care Document ---
:1985 Author Organization [facility] Address [address] [place], [place] [id number] Phone Care Team Providers Name Role Phone [...] NDC mg iron-800 mcg Oral route every 97798085644 tablet day Problems Condition Effective Dates (start - stop) Clinical Status Low Lying Placenta Nos Or W/out - [...] Polycystic Ovarian Syndrome Active Procedures Procedure Date Immuniz admnin, 1 vac, sngl/combo 19 Yrs + Flu Vaccine - Quadrivalent OB Visit No Charge Results Test Name Date and Time Measure Units Reference Range Abnormal Flag Comments Panel Description: Glucose [Mass/volume] in Serum or Plasma --1 hour post 50 g glucose PO GLUCOSE, 121 mg/dL <140 N Test performed at [facility]CREEN 11:10:00 DIAGNOSTICS [id number] (50G)-[address] [place] [address]Hgbgswoc: MARTHA URRUTIA DO,MPH Panel Description: HEMOGLOBIN + HEMATOCRIT HEMOGLOBIN 11:10:00 10.4 g/dL 11.7-15.5 L HEMATOCRIT 11:10:00 30.6 % 35.0-45.0 L REPORT COMMENT:FASTING :NOTest performed at [facility] [id number] [place] [address]Bwvqwsyw: MARTHA URRUTIA DO,MPH Advance Directives Directive Yes / No Effective Date File Name Unknown Encounters Encounter Practice Location Reason(s) Diagnoses Date Provider Care Team Description For Visit [facility] Suprvsn of preg w Nov-0 Jer In Womens poor reprodctv or 1-201 Gabby. [facility] WANDER, obstet hx, third 7 700 PO Box triEncounter for Medical 1522, suprvsn of normal [facility], , third Skyler Small, [id number] weeks 120, , gestation of [place], tel:[phone] , [place]. tel: [phone] Timothy [place] Suprvsn of preg w Nov-0 Jer In Womens Ultrasound poor reprodctv or 1-201 Gabby. [facility] WANDER, obstet hx, third 7 700 PO Box triDecreased Medical 1522, movements, Milton Rogers, third trimester, Skyler Small, unspLow Lying 120, [id number], Placenta Nos Or [place], [place] W/out Hemorrhage, [place], tel:+ Third [id number] weeks gestation , [place]. of tel:[phone] [facility] Low Lying Oct-1 Jer Referring In Womens Placenta Nos Or 8-201 Gabby. Provider: Gregory VIRAMONTES, W/out Hemorrhage, 7 700 Gabby PO Box Second Medical Jer L, 1522, [facility] [address] [place] [address], for suprvsn of Skyler Small, normal , 120, Center , second Skyler [place] 120, [place] [id number] weeks Terry DANIELS, tel: gestation of [id number] [place], , [place]. [id number]. tel: tel: [phone] [facility] Decreased Sep-2 Jer In Womens movements, second Gabby. [facility] [place], trimester, 7 700 PO Box unspEncounter for Medical 1522, suprvsn of normal [facility], , second Skyler Small, [id number] weeks 120, [id number], gestation of [place], tel:[phone] , [place]. tel: [phone] [facility] Suprvsn of preg w Sep-1 Jer In Womens poor reprodctv or Gabby. [facility] [place], obstet hx, second 7 700 PO Box triLow lying Medical 1522, placenta NOS or [facility], w/out hemorrhage, Skyler Small, second 120, , trimesterEncounte [place], r for suprvsn of [place], tel: normal , [phone] [id number] second , [place]. [email or web address] weeks tel: gestation of [phone] [facility] Suprvsn of preg w Sep-0 Sobbing In Womens poor reprodctv or Mick. [facility], obstet hx, second 7 700 PO Box triLow lying Medical 1522, placenta NOS or [facility], w/out hemorrhage, FRANCES Posey, second Suite , [email or web address] weeks 120, [place] gestation of [place], tel: pregnancy[place] [address], the nervous sys [place]. and sense organs tel: [phone] [facility] Encounter for Sep-0 Jer In Womens Ultrasound suprvsn of normal [facility]. [facility] [place], , second 7 700 PO Box [email or web address] weeks Medical 1522, gestation of [facility], Skyler Small, 120, [id number], [place], [place], tel:[phone] , [place]. tel: [phone] [facility] Suprvsn of preg w Aug- Jer Referring In Womens poor reprodctv or 2-201 Gabby. Provider: Gregory VIRAMONTES, obstet hx, second 7 700 Vignesh PO Box triEncounter for Medical Marisela L, 1522, suprvsn of normal Center [address] [place] [address], , second , [facility], [email or web address] weeks 120, Drive, [id number], gestation of Nav [place], [place], [address]. tel: history of dis of [phone] tel: the nervous sys , [place]. [id number] and sense organs tel: [phone] [facility] Encounter for May- Jer Referring In Womens suprvsn of normal 4-201 Gabby. Provider: Gregory VIRAMONTES, , first 7 700 Vignesh PO Box [email or web address] weeks Medical Marisela L, 1522, gestation of [address], pregnancyPersonal , [facility], history of dis of 120, Drive, , the nervous sys Nav [place], [place], [address]. tel:[phone] tel: , [place]. [id number] tel: [phone] Timothy [place] Suprvsn of preg w Shin-2 Jer Referring In Womens poor reprodctv or 6-201 Gabby. Provider: Gregory VIRAMONTES, obstet hx, first 7 700 Vignesh PO Box triPap Smear Medical Marisela L, 1522, Screening, Center [facility] Kevin, CervixEncdona Small, [facility], for suprvsn of 120, Drive, [id number], normal , Nav [place], first trimester9 [place], [address]. tel: weeks gestation [phone] tel: of , [place]. [phone] pregnancyPersonal tel: history of dis of [phone] the nervous sys and sense organs Associates Nav Fe-2 Jer Referring In Womens 0-200 Gabby. Provider: Gregory VIRAMONTES, 8 700 Vignesh PO Box Medical Marisela L, 1522, Center [facility] Kevni, , [facility], 120, Drive, [id number], Nav [place], [place], [address]. tel:[phone] tel:[phone] , . [id number] tel: [phone] Family History Family Member Diagnosis Age At [...] [employer] [place] Medicaid [place] [id number] [employer] [place] Medicaid MC [id number] Social History Type Description Quantity Date Captured Alcohol Use Details Caffeine Use Details Unknown Tobacco Use Status Unknown Smoking Status Never smoker Vital Signs Date / Height Weight BMI Pulse Blood Temperature Respiratory Body Head BMI Time: Rate Pressure Rate Surface Circumference percentile Area 211.20 38.2 / lbs 5 mm[Hg] 10:36 kg/m AM eter (2) Chief Complaint And Reason For Visit Unknown Chief Complaint And Reason For Visit Reason For Referral Reason For Referral Unknown Plan Of Care Date Type Action Status Appointment Monika Noel BOOKED Appointment Monika Noel BOOKED Appointment Monika Noel BOOKED Appointment Monika Noel BOOKED Future Order: Radiology Order Ultrasound OB Follow-up ([id number]) Ordered Future Order: Radiology Order Complete OB Ultrasound > 14 Ordered Weeks ([id number]) Date Type Problem Goal Intervention Status Start [...]
--- OUTSIDE RECORDS SUMMARY | 2017-12-18 08:34 | External Medical Summary | Continuity of Care Document ---
:1986 Author Organization [facility] Address [address] [place], [place] [phone] Phone Care Team Providers Name Role Phone [...] NDC mg iron-800 mcg Oral route every [id number] tablet day Problems Condition Effective Dates (start [...] NOS or w/out - hemorrhage, second trimester 21 weeks gestation of - Encounter for suprvsn of normal - , second trimester Suprvsn of preg w poor reprodctv or - obstet hx, second tri Encounter for suprvsn of normal - , second trimester 17 weeks gestation of - Personal history of dis of the nervous - sys and sense organs Decreased movements, second - trimester, unsp 23 weeks gestation of - Encounter for suprvsn of normal - , second trimester 13 weeks gestation of - Encounter for suprvsn [...] Womens movements, second Gabby. Health [place], trimester, unsp23 7 700 PO Box weeks gestation Medical 1522, of [facility], pregnancyEncounte Sklyer Small, r for suprvsn of 120, , normal , [place], second trimester [place], tel: [phone] [address] , [place]. tel: [phone] Timothy [place] Suprvsn of preg w Sep-1 Jer In Womens poor reprodctv or 9-201 Gabby. Health [place], obstet hx, second 7 700 PO Box triLow lying Medical 1522, placenta NOS or [facility], w/out hemorrhage, Skyler Small, second 120, [id number], [id number] weeks [place], gestation of [place], tel: pregnancyEncounte [phone] [id number] r for suprvsn of , [place]. normal , tel: second trimester [phone] Timothy [place] Suprvsn of preg w Sep-0 Sobbing In Womens poor reprodctv or 7-201 Mick. Health WANDER, obstet hx, second 7 700 PO Box triLow lying Medical 1522, placenta NOS or [facility], w/out hemorrhage, Drive, [place], second Suite , [id number] weeks 120, [place] gestation of [place], tel: pregnancy[place] [address], the nervous sys [place]. and sense organs tel: [phone] [facility] Encounter for Sep-0 Jer In Womens Ultrasound suprvsn of normal 7- Gabby. Health WANDER, , second 7 700 PO Box [id number] weeks Medical 1522, gestation of [facility], Dr [facility], 120, , [place], [facility], tel:[phone] , [place]. tel: [phone] [facility] Suprvsn of preg w Jul- Jer Referring In Womens poor reprodctv or 2-201 Gabby. Provider: Gregory VIRAMONTES, obstet hx, second 7 700 Vignesh PO Box triEncounter for Medical Marisela L, 1522, suprvsn of normal [address], , second , [facility], [email or web address] weeks 120, Drive, , gestation [place], [place], [address]. tel: history of dis of [phone] tel: the nervous sys , [place]. [id number] and sense organs tel: [phone] [facility] 13 weeks May- Jer Referring In Womens gestation of 4-201 Gabby. Provider: Gregory VIRAMONTES, pregnancyEncounte 7 700 Vignesh PO Box r for suprvsn of Medical Marisela L, 1522, normal , Center [address] [place], [facility] , [facility], trimesterPersonal 120, Drive, , history of dis of [place], [place], [address]. tel: and sense organs [phone] tel: , [place]. [id number] tel: [phone] [facility] Suprvsn of preg w Jer Referring In Womens poor reprodctv or 6-201 Gabby. Provider: Gregory VIRAMONTES, obstet hx, first 7 700 Vignesh PO Box triPap Smear Medical Marisela L, 1522, Screening, Center 1010 Kevin CervixEncdona Small, [facility], for suprvsn of 120, Drive, [id number], normal , Nav [place], first trimester9 [place], [address]. tel: weeks gestation [phone] tel: , . [phone] pregnancyPersonal tel: history of dis of [phone] the nervous sys and sense organs Associates Nav Jer Referring In Womens 0-200 Gabby. Provider: Gregory VIRAMONTES, 8 700 Vignesh PO Box Medical Marisela L, 1522, Center [address] Kevin, [facility], 120, Drive, , Nav [place], [place], [address]. tel: [phone] tel: , . [id number] tel: [phone] Family History Family Member Diagnosis Age At [...] [employer] [place] - Medicaid MC [id number] Social History Type Description Quantity Date Captured Alcohol Use Details Caffeine Use Details Unknown Tobacco Use Status Unknown Smoking Status Never smoker Vital Signs Date / Height Weight BMI Pulse Blood Temperature Respiratory Body Head BMI Time: Rate Pressure Rate Surface Circumference percentile Area 212.50 38.4 123/65 lbs 9 mm[Hg] 10:26 kg/m AM eter (2) Chief Complaint And Reason For Visit Unknown Chief Complaint And Reason For Visit Reason For Referral Reason For Referral Unknown Plan Of Care Date Type Action Status Appointment Monika Noel BOOKED Future Order: Radiology Order Complete OB Ultrasound > 14 Ordered Weeks ([id number]) Date Type Problem Goal Intervention Status Start [...]
--- OUTSIDE RECORDS SUMMARY | 2017-12-18 08:35 | External Medical Summary | Continuity of Care Document ---
:1986 Author Organization [facility] Address [address] [place], [place] [phone] Phone Care Team Providers Name Role Phone [...] NDC mg iron-800 mcg Oral route every [id number] tablet day Zofran ODT 4 mg take [...] Third Trimester 28 weeks gestation of - Decreased movements, [...] PA, , third 7 700 PO Box [id number] weeks Medical 1522, gestation of [facility], Skyler Small, 120, [id number], [place], [place], tel:[phone] , [place]. tel: [phone] [facility] Suprvsn of preg w Nov-0 Jer In Womens poor reprodctv or 1-201 Gabby. Health [place], obstet hx, third 7 700 PO Box triEncounter for Medical 1522, suprvsn of normal [facility], , third Skyler Small, [id number] weeks 120, [id number], gestation of [place], [place], tel:901 , [place]. tel: [phone] [facility] Suprvsn of preg w Nov-0 Jer In Womens Ultrasound poor reprodctv or 1-201 Gabby. Health PA, obstet hx, third 7 700 PO Box triDecreased Medical 1522, movements, [facility], third trimester, Skyler Small, unspLow Lying 120, , Placenta Nos Or [place], [place] W/out Hemorrhage, [place], tel: Third [id number] [phone] 1967[address] weeks gestation , [place]. of tel: [phone] [facility] Low Lying Oct-1 Jer Referring In Womens Placenta Nos Or 8-201 Gabby. Provider: Health WANDER, W/out Hemorrhage, 7 700 Gabby PO Box Second Medical Jer L, 1522, [facility] [address] [place] [address], for suprvsn of Skyler Small, normal , 120, Center [id number], second Skyler [place] 120, [place] [id number] weeks Terry DANIELS, tel: gestation of [place], , [place]. [id number]. tel: tel: [phone] [facility] Decreased Sep-2 Jer In Womens movements, second 7-201 Gabby. Health [place], trimester, 7 700 PO Box unspEncounter for Medical 1522, suprvsn of normal [facility], , second Skyler Small, weeks 120, [id number], gestation of [place], [place], tel:[phone] , [place]. tel: [phone] [facility] Suprvsn of preg w Sep-1 Jer In Womens poor reprodctv or 9-201 Gabby. Health WANDER, obstet hx, second 7 700 PO Box triLow lying Medical 1522, placenta NOS or [facility] [place], w/out hemorrhage, [facility], second 120, , trimesterEncounte [place], r for suprvsn of [place], tel: normal , [phone] [address] second , [place]. [id number] weeks tel: gestation of [phone] [facility] Suprvsn of preg w Sep-0 Sobbing In Womens poor reprodctv or 7-201 Mick. Health WANDER, obstet hx, second 7 700 PO Box triLow lying Medical 1522, placenta NOS or [facility] [place], w/out hemorrhage, [facility], [place], second Suite , [id number] weeks 120, [place] gestation of [place], tel: pregnancy[place] [address], the nervous sys [place]. and sense organs tel: [phone] [facility] Encounter for Sep-0 Jer In Womens Ultrasound suprvsn of normal 7-201 Gabby. Health WANDER, , second 7 700 PO Box [id number] weeks Medical 1522, gestation of [facility] [place], Skyler Small, 120, , [place], [place], tel:[phone] , [place]. tel: [phone] [facility] Suprvsn of preg w Aug-2 Jer Referring In Womens poor reprodctv or 2-201 Gabby. Provider: Health WANDER, obstet hx, second 7 700 Vignesh PO Box triEncounter for Medical Marisela L, 1522, suprvsn of normal Center [address] [place], , second Skyler Small [place], weeks 120, Drive, , gestation of Nav [place], [place], [address]. tel: history of dis of [phone] tel: the nervous sys , [place]. [id number] and sense organs tel: [phone] [facility] Encounter for May-2 Jer Referring In Womens suprvsn of normal 4-201 Gabby. Provider: Gregory VIRAMONTES, , first 7 700 Vignesh PO Box [email or web address] weeks Medical Marisela L, 1522, gestation of Center [address] [place], pregnancyPersonal , [facility], history of dis of 120, Drive, [id number], the nervous sys [place], [place], [address]. tel:[phone] tel: , [place]. [id number] tel: [phone] [facility] Suprvsn of preg w Shin-2 Jer Referring In Womens poor reprodctv or 6-201 Gabby. Provider: Gregory VIRAMONTES, obstet hx, first 7 700 Vignesh PO Box triPap Smear Medical Marisela L, 1522, Screening, Center [facility] [place], CervixEncounter , [facility], for suprvsn of 120, Drive, [id number], normal , Nav [place] first [place]9 [place], [address]. tel: weeks gestation [phone] tel: , [place]. [phone] pregnancyPersonal tel: history of dis of [id number] the nervous sys and sense organs Associates Nav Fe-2 Jer Referring In Womens 0-200 Gabby. Provider: Gregory VIRAMONTES, 8 700 Vignesh PO Box Medical Marisela L, 1522, Center [address] Kevin, [facility], 120, Drive, [id number], [place], [address]. tel: tel: , [place]. [id number] tel: [phone] Family History Family Member Diagnosis Age At [...] [employer] [place] - Medicaid MC [id number] [place] - Medicaid MC [id number] Social History Type Description Quantity Date Captured Alcohol Use Details Caffeine Use Details Unknown Tobacco Use Status Unknown Smoking Status Never smoker Vital Signs Date / Height Weight BMI Pulse Blood Temperature Respiratory Body Head BMI Time: Rate Pressure Rate Surface Circumference percentile Area 212.80 38.5 137/ lbs 4 mm[Hg] 8:58 kg/m AM eter (2) Chief Complaint And Reason For Visit Unknown Chief Complaint And Reason For Visit Reason For Referral Reason For Referral Unknown Plan Of Care Date Type Action Status Appointment Monika Noel Goodridge BOOKED Appointment Monika Noel BOOKED Appointment Monika Noel BOOKED Future Order: Radiology Order Ultrasound OB Follow-up ([id number]) Ordered Future Order: Radiology Order Complete OB Ultrasound > 14 Ordered Weeks ([id number]) Date Type Problem Goal Intervention Status Start [...]
--- OUTSIDE RECORDS SUMMARY | 2017-12-18 08:35 | External Medical Summary | Continuity of Care Document ---
:1985 Author Organization [facility] Care Team Providers Name Role Phone TARA HOGAN MD Unavailable Unavailable Insurance Providers Payer Name Policy Number Subscriber Name Relationship Brooke [facility] Untdhlt [id number] Monika Odonnell 18 Self / Same As Patient Advance Directives Directive Response Recorded Date/Time Advanced Directives No 06/25/16 1:40pm Type Living Will 10/21/15 7:38pm Chief Complaint and Reason for Visit Chief Complaint Gynecological Complaint Reason for Visit Malaise Vaginal bleeding Problems Active Problems Medical Problem Onset Date Status Abdominal pain ~03/19/2014 Resolved Adenotonsillar hypertrophy Unknown Resolved Breast infection Unknown Resolved Carpal tunnel syndrome Unknown Resolved Cellulitis Unknown Resolved Colonoscopy Unknown Resolved Diarrhea ~03/19/2014 Resolved Gastroenteritis ~09/25/2015 Acute HOME MED 05/10/2012 Resolved INTRAUT 05/10/2012 Jaw pain 01/14/2014 Resolved Malaise Unknown Acute Migraine ~09/25/2015 Acute NAUSEA MED GIVEN FOR HOME 05/10/2012 NAUSEA/CRAMPING 05/10/2012 Resolved Nausea and vomiting ~03/19/2014 Resolved Normal delivery procedure 10/15/2012 Resolved Pain in toe 09/20/2013 Resolved Post-op pain Unknown Resolved Post-tonsillectomy hemorrhage ~09/10/2014 Resolved Strep tonsillitis ~07/26/2014 Resolved Toothache 01/14/2014 Resolved Toothache Unknown Acute Upper respiratory infection ~10/21/2015 Acute Urinary tract infection ~09/25/2015 Acute Vaginal bleeding Unknown Acute Medications No known medications. Social History Query Response Start Date Stop Date Smoking Status Never smoker Hospital Discharge Instructions No hospital discharge instructions. Plan of Care Discharge Date 06/25/16 3:22pm Disposition 01 HOME OR SELF-CARE Condition at Discharge Stable Instructions/Education Provided Dysfunctional Uterine Bleeding (ED) Prescriptions See Medication Section Referrals TARA HOGAN MD - Additional Instructions/Education Some of your test results may not [...] worrisome symptoms. * Emergency Department phone number: [phone], x [phone]* MEDICAL RECORD If you need copies of your X-rays, call [phone] x [phone]. If you need copies of [...] the billing parties for services. SERVICE [employer]ILLING [employer] Emergency Room Services [facility] Physician Services [facility] X-rays [place] [facility] Patients will receive bills for services from the appropriate provider. If you have any questions about your [facility] bill, our staff will be happy to assist you. Please call [phone], and ask for the billing department. THANK YOU for choosing [facility] as your emergency care provider! Care Plan and Goals ~~Discharge Care Plan~~ Problem: gynecological problem Goal: Decreased pain. No vaginal bleeding/discharge. Instructions: Take medication(s) as prescribed. Follow home care instructions as directed. Follow up with your ANIMAL CRUELTY INVESTIGATOR or primary care physician as directed. Return if bleeding increases to more than one super pad per hour. Functional Status No functional status results. Allergies, Adverse Reactions, Alerts Allergen Type Severity Reaction Status Last Updated Penicillin Allergy Unknown Active 06/25/16 Hydrocodone Adverse Reaction Mild ITCHING Active 06/25/16 latex Allergy Mild Active 06/25/16 Immunizations No immunization records. Vital Signs Acute Vital Signs Vital Response Date/Time Temperature (Fahrenheit) 97.1 06/25/2016 3:01pm Pulse 85 bpm 06/25/2016 3:01pm Respirations 16 06/25/2016 3:01pm Height 5 ft 0 in Weight 196 lb Body Mass Index 38.0 kg/m^2 Results Laboratory Results Test Name Result Units Flags Reference Collection Result Comments Date/Time Date/Time White Blood Count 6.54 10^3uL 4.0-11.0 06/25/2016 06/25/2016 2:15pm 2:32pm Red Blood Count 4.28 10^6uL 4.00-5.00 06/25/2016 06/25/2016 2:15pm 2:32pm Hemoglobin 12.3 g/dL 12.0-15.5 06/25/2016 06/25/2016 2:15pm 2:32pm Hematocrit 35.40 % 35.00-45.00 06/25/2016 06/25/2016 2:15pm 2:32pm Mean Corpuscular 83 FL 80-100 06/25/2016 06/25/2016 Volume 2:15pm 2:32pm Mean Corpuscular 28.7 PG 26.0-34.0 06/25/2016 06/25/2016 Hemoglobin 2:15pm 2:32pm Mean Corpuscular 34.7 g/dL 31.0-37.0 06/25/2016 06/25/2016 Hemoglobin Concent 2:15pm 2:32pm Red Cell 12.6 % 11.8-15.6 06/25/2016 06/25/2016 Distribution Width 2:15pm 2:32pm Platelet Count 274 10^3uL 150-450 06/25/2016 06/25/2016 2:15pm 2:32pm Mean Platelet 9.7 FL H 6.0-9.5 06/25/2016 06/25/2016 Volume 2:15pm 2:32pm Neutrophils (%) 56 % 51-67 06/25/2016 06/25/2016 (Auto) 2:15pm 2:32pm Lymphocytes (%) 35 % 20-46 06/25/2016 06/25/2016 (Auto) 2:15pm 2:32pm Monocytes (%) 7 % 3-11 06/25/2016 06/25/2016 (Auto) 2:15pm 2:32pm Eosinophils (%) 2 % 0-4 06/25/2016 06/25/2016 (Auto) 2:15pm 2:32pm Basophils (%) 0 % 0-2 06/25/2016 06/25/2016 (Auto) 2:15pm 2:32pm Neutrophils # 3.7 X10^3 06/25/2016 06/25/2016 (Auto) 2:15pm 2:32pm Lymphocytes # 2.3 X10^3 06/25/2016 06/25/2016 (Auto) 2:15pm 2:32pm Monocytes # (Auto) 0.5 X10^3 06/25/2016 06/25/2016 2:15pm 2:32pm Eosinophils # 0.1 10^3uL 06/25/2016 06/25/2016 (Auto) 2:15pm 2:32pm Basophils # (Auto) 0.0 10^3uL 06/25/2016 06/25/2016 2:15pm 2:32pm Volume Urine 10 mL 06/25/2016 06/25/2016 Centrifuged 2:15pm 2:38pm Urine Collection CLEAN 06/25/2016 06/25/2016 Type CATCH 2:15pm 2:38pm Urine Color Dark 06/25/2016 06/25/2016 Yellow 2:15pm 2:37pm Urine Clarity Cloudy 06/25/2016 06/25/2016 2:15pm 2:37pm Urine pH 7.0 5.0 - 8.0 06/25/2016 06/25/2016 2:15pm 2:37pm Urine Specific 1.020 1.005-1.030 06/25/2016 06/25/2016 [place] 2:15pm 2:37pm Urine Protein Trace H Negative 06/25/2016 06/25/2016 2:15pm 2:37pm Urine Glucose (UA) Negative Negative 06/25/2016 06/25/2016 2:15pm 2:37pm Urine RBC (Auto) 3+ H Negative 06/25/2016 06/25/2016 2:15pm 2:37pm Urine Ketones Negative Negative 06/25/2016 06/25/2016 2:15pm 2:37pm Urine Nitrite Negative Negative 06/25/2016 06/25/2016 2:15pm 2:37pm Urine Bilirubin Negative Negative 06/25/2016 06/25/2016 2:15pm 2:37pm Urine Urobilinogen 0.2 mg/dL 0.2-1.0 06/25/2016 06/25/2016 2:15pm 2:37pm Urine Leukocyte Negative Negative 06/25/2016 06/25/2016 Esterase 2:15pm 2:37pm Urine RBC >100 /HPF 06/25/2016 06/25/2016 2:15pm 2:43pm Urine WBC None Seen /HPF 06/25/2016 06/25/2016 2:15pm 2:43pm Urine Bacteria None Seen /HPF 06/25/2016 06/25/2016 2:15pm 2:43pm Urine Squamous 2-5 /LPF 06/25/2016 06/25/2016 Epithelial Cells 2:15pm 2:43pm Urine Mucus Rare 06/25/2016 06/25/2016 2:15pm 2:43pm Sodium Level 146 mmol/L 135-150 06/25/2016 06/25/2016 2:15pm 2:38pm Potassium Level 3.8 mmol/L 3.5-5.1 06/25/2016 06/25/2016 2:15pm 2:38pm Chloride Level 109 mmol/L H 98-108 06/25/2016 06/25/2016 2:15pm 2:38pm Carbon Dioxide 23 mmol/L 22-29 06/25/2016 06/25/2016 Level 2:15pm 2:38pm Anion Gap 17.9 MEQ/L H 3-15 06/25/2016 06/25/2016 2:15pm 2:38pm Blood Urea Nitrogen 10 mg/dL 7-18 06/25/2016 06/25/2016 2:15pm 2:38pm Creatinine 0.54 mg/dL L 0.6-1.2 06/25/2016 06/25/2016 2:15pm 2:38pm BUN/Creatinine 19 10-20 06/25/2016 06/25/2016 Ratio 2:15pm 2:38pm Estimat Glomerular 160.4 06/25/2016 06/25/2016 Filtration Rate 2:15pm 2:38pm Estimated GFR 132.6 06/25/2016 06/25/2016 (Non- 2:15pm 2:38pm [place] Glucose Level 84 mg/dL 70-110 06/25/2016 06/25/2016 2:15pm 2:38pm Calculated 280 mosm/L 280-300 06/25/2016 06/25/2016 Osmolality 2:15pm 2:38pm Calcium Level 9.1 mg/dL 8.8-10.8 06/25/2016 06/25/2016 2:15pm 2:38pm Calcium/Ionized 3.9 mg/dL 3.8-4.6 06/25/2016 06/25/2016 Calcium Ratio 2:15pm 2:38pm Total Bilirubin 0.6 mg/dL # 0.1-1.0 06/25/2016 06/25/2016 2:15pm 2:38pm Alkaline 71 U/L 38-126 06/25/2016 06/25/2016 Phosphatase 2:15pm 2:38pm Aspartate Amino 22 U/L 15-37 06/25/2016 06/25/2016 Transf (AST/SGOT) 2:15pm 2:38pm Alanine 24 U/L L 30-65 06/25/2016 06/25/2016 Aminotransferase 2:15pm 2:38pm (ALT/SGPT) Total Protein 7.5 g/dL 6.4-8.5 06/25/2016 06/25/2016 2:15pm 2:38pm Albumin 4.2 g/dL 3.4-5.0 06/25/2016 06/25/2016 2:15pm 2:38pm Albumin/Globulin 1.272 1.1-1.8 06/25/2016 06/25/2016 Ratio 2:15pm 2:38pm Lipase 61 U/L 23-300 06/25/2016 06/25/2016 2:15pm 2:38pm Procedures No known history of procedures. Encounters Encounter Location Arrival/Admit Date Discharge/Depart Date Attending Provider Departed Nav 06/25/16 1:40pm 06/25/16 3:22pm TARA ANDREWS Emergency Room [facility] Recent Diagnosis
--- OUTSIDE RECORDS SUMMARY | 2017-12-18 08:35 | External Medical Summary | Continuity of Care Document ---
:1985 Author Organization [facility] Address [address] [place], [place] [id number] Phone Care Team Providers Name Role Phone Vignesh Antonio MD Unavailable Unavailable Allergies, Adverse Reactions, Alerts Substance Reaction Severity Status Penicillins Rash Unknown Active Medications Medication Instructions Dosage Effective Status Comments Dates (start - stop) Formula 28 take 1 Tablet by - Active use NDC mg iron-800 mcg Oral route every [id number] tablet day Zofran ODT 4 mg take [...] Womens poor reprodctv or 0-201 Gabby. Health [place], obstet hx, third 8 700 PO Box triEncounter for Medical 152, suprvsn of normal [facility], , third Skyler Small, [email or web address] weeks 120, , gestation of [facility] [place], tel: [phone] , [place]. tel: [phone] Timothy [place] Encounter for Dec-0 Ivan Referring In Womens suprvsn of normal 3-201 Crow. 700 Provider: Health WANDER, , third 8 Medical Gabby PO Box weeks Center Jer L, 1522, gestation of Skyler Small [place], pregnancyPersonal 120, Medical [place], history of dis of [address] [place] [address] , the nervous sys FRANCES, Skyler 120, [place] and sense organs [id number] Terry, tel: , [place]. [place], tel: [phone]. [id number] tel:[phone] Timothy [place] Suprvsn of preg w Daren-0 Jer In Womens Ultrasound poor reprodctv or 3-201 Gabby. Health WANDER, obstet hx, third 8 700 PO Box [email or web address] weeks Medical 1522, gestation of [facility], Skyler Small, 120, , [place], tel:[phone] , [place]. tel: [phone] [facility] Hematuria, Dec-2 Jer In Womens unspecifiedEncoun 0-201 Gabby. Gregory VIRAMONTES, [facility] for suprvsn 7 700 PO Box of normal Medical 1522, , third [facility], [email or web address] weeks Skyler Small, gestation of 120, , [place], tel:[phone] , [place]. tel: [phone] Associates [facility] Dec-2 Jer In Womens 0-201 Gabby. Gregory VIRAMONTES, 7 700 PO Box Medical 1522, [facility], Skyler Small, 120, , [place], tel:+ [phone] , [place]. tel: [phone] [facility] Suprvsn of preg w Dec-1 Jer In Womens poor reprodctv or 3-201 Gabby. Health WANDER obstet hx, third 7 700 PO Box triEncounter for Medical 1522, suprvsn of normal [facility], , third Skyler Small, [email or web address] weeks 120, , gestation of [place], [place], tel:[phone] , [place]. tel: [phone] [facility] Suprvsn of preg w Nov-2 Jer In Womens poor reprodctv or 9-201 Gabby. Health WANDER, obstet hx, third 7 700 PO Box triAbnormal Pap, Medical 1522, ASCUSCervical [facility], high risk HPV DNA Skyler Small, test 120, , positiveEncounter [facility] for suprvsn of [place], tel:[phone] normal , [phone] [id number] third [email or web address] , [place]. weeks gestation tel: of [phone] Associates [facility] Encounter for Nov-1 Jer In Womens suprvsn of normal 5-201 Gabby. Health [place], , third 7 700 PO Box [email or web address] weeks Medical 1522, gestation of [facility], Skyler Small, 120, [id number], [place], tel:[phone] , [place]. tel: [phone] [facility] Suprvsn of preg w Nov-0 Jer In Womens poor reprodctv or 1-201 Gabby. Health WANDER, obstet hx, third 7 700 PO Box triEncounter for Medical 1522, suprvsn of normal [facility], , third Skyler Small, [email or web address] weeks 120, , gestation of [place], [place], tel:[phone] , [place]. tel: [phone] [facility] Suprvsn of preg w Nov-0 Jer In Womens Ultrasound poor reprodctv or 1-201 Gabby. Health WANDER, obstet hx, third 7 700 PO Box triDecreased Medical 1522, movements, [facility], third trimester, Skyler Small, unspLow Lying 120, , Placenta Nos Or [place], [place] W/out Hemorrhage, [place], tel: Third [id number] [phone] weeks gestation , [place]. of tel: [phone] Timothy [place] Low Lying Oct-1 Jer Referring In Womens Placenta Nos Or 8-201 Gabby. Provider: Health WANDER, W/out Hemorrhage, 7 700 Gabby PO Box Second Medical Jer L, 1522, TrimesterEncounte Center [address] [place] [address], r for suprvsn of Skyler Small, normal , 120, Center Dr [id number], second Skyler [place] 120, [place] [email or web address] weeks Terry DANIELS, tel: gestation of [id number] [place], , [place]. [id number]. tel: tel:[phone] Associates [facility] Decreased Sep-2 Jer In Womens movements, second 7-201 Gabby. Health [place], trimester, 7 700 PO Box unspEncounter for Medical 1522, suprvsn of normal Center [place], , second Skyler Small, [email or web address] weeks 120, , gestation of [place], [place], tel: [phone] [address] , [place]. tel: [phone] [facility] Suprvsn of preg w Sep-1 Jer In Womens poor reprodctv or 9-201 Gabby. Health WANDER, obstet hx, second 7 700 PO Box triLow lying Medical 1522, placenta NOS or [facility], w/out hemorrhage, Skyler Small, second 120, , trimesterEncounte [place], r for suprvsn of [place], tel: normal , [phone] [id number] second , [place]. [email or web address] weeks tel: gestation of [phone] [facility] Suprvsn of preg w Sep-0 Sobbing In Womens poor reprodctv or 7-201 Mick. Health WANDER, obstet hx, second 7 700 PO Box triLow lying Medical 1522, placenta NOS or Center [place], w/out hemorrhage, Drive, [place], second Suite , [email or web address] weeks 120, [place] gestation of [place], [place]: [place] [id number], the nervous sys [place]. and sense organs tel: [phone] Associates [facility] Encounter for Sep-0 Jer In Womens Ultrasound suprvsn of normal 7-201 Gabby. Health WANDER, , second 7 700 PO Box [email or web address] weeks Medical 1522, gestation of [facility], Skyler Small, 120, , [place], tel:[phone] , [place]. tel: [phone] [facility] Suprvsn of preg w Aug-2 Jer Referring In Womens poor reprodctv or 2-201 Gabby. Provider: Health WANDER, obstet hx, second 7 700 Vignesh PO Box triEncounter for Medical Marisela L, 1522, suprvsn of normal Center [address] [place], , second Skyler Small [facility], [email or web address] weeks 120, Drive, , gestation [place], [place], [id number]. tel: history of dis of [phone] tel: the nervous sys , [place]. [id number] and sense organs tel: [phone] [facility] Encounter for Jer Referring In Womens suprvsn of normal 4-201 Gabby. Provider: Health WANDER, , first 7 700 Vignesh PO Box [email or web address] weeks Medical Marisela L, 1522, gestation of Center [address] [place], pregnancyPersonal , [facility], history of dis of 120, Drive, , the nervous sys Nav [place], [place], [id number]. tel: tel: , [place]. [id number] tel: [phone] [facility] Suprvsn of preg w Shin- Jer Referring In Womens poor reprodctv or 6-201 Gabby. Provider: Health WANDER, obstet hx, first 7 700 Vignesh PO Box triPap Smear Medical Marisela L, 1522, Screening, Center [facility] [place], CervixEncounter , [facility], for suprvsn of 120, Drive, , normal , Nav [place], first trimester9 [place], [address]. tel: weeks gestation tel: , [place]. [phone] pregnancyPersonal tel: history of dis of [phone] the nervous sys and sense organs Associates Nav Fe Jer Referring In Womens 0-200 Gabby. Provider: Gregory VIRAMONTES, 8 700 Vignesh PO Box Medical Marisela L, 1522, Center 101 Kevin, , [facility], 120, Drive, , Nav [place], [place], [address]. tel: tel: , [place]. [id number] tel: [phone] Family History Family Member Diagnosis Age At [...] [employer] [place] [id number] [employer] [place] MC [id number] [employer] [place] [employer] [place] Medicaid MC [id number] Social History Type Description Quantity Date Captured [...] Future Order: Radiology Order Ultrasound OB Follow-up (69967) Ordered Future Order: Radiology Order Ultrasound OB Follow-up ([id number]) Ordered Future Order: Radiology Order Complete OB Ultrasound > 14 Ordered Weeks ([id number]) Date Type Problem Goal Intervention Status Start [...]
--- OUTSIDE RECORDS SUMMARY | 2017-12-18 08:35 | External Medical Summary | Continuity of Care Document ---
:1985 Author Organization [facility] Care Team Providers Name Role Phone TARA HOGAN MD Unavailable Unavailable Insurance Providers Payer Name Policy Number Subscriber Name Relationship Brooke [employer] [facility] [id number] Monika Smith 18 Self / Same As Patient Problems Medical Problems Problem Onset Date Status INTRAUT 05/10/2012 Active NAUSEA MED GIVEN FOR HOME 05/10/2012 Active NAUSEA/CRAMPING 05/10/2012 Resolved HOME MED 05/10/2012 Resolved Normal delivery procedure 10/15/2012 Resolved Pain in toe 09/20/2013 Resolved Jaw pain 01/14/2014 Resolved Toothache 01/14/2014 Resolved Abdominal pain ~03/19/2014 Resolved Nausea and vomiting ~03/19/2014 Resolved Diarrhea ~03/19/2014 Resolved Colonoscopy Unknown Resolved Strep tonsillitis ~07/26/2014 Active Adenotonsillar hypertrophy Unknown Active Post-tonsillectomy hemorrhage ~09/10/2014 Active Post-op pain Unknown Active Breast infection Unknown Active Cellulitis Unknown Active Carpal tunnel syndrome Unknown Active Medications Medication Dose Route Sig Days/Qty Instructions Order Discontinued Status Date Date Acetaminophen 325 ORAL 10/16/12 Discontinue Mg 12 d Ondansetron 4 Mg ORAL EVERY 6 15 Qty 10/15/12 Discontinue Hcl HOURS 12 d Ibuprofen 600 ORAL EVERY 6 01/14/14 Discontinue Mg HOURS 12 d PRN Oxycodone/Acet 1 Tab ORAL Q 6H PRN Pain 09/20/13 Discontinue aminophen 12 d Methocarbamol 500 ORAL DAILY 07/26/14 Discontinue Mg 13 d Ibuprofen 2-4 ORAL 01/14/ 01/12/15 Discontinue (Motrin) Tab NEEDED 14 d Acetaminophen 2 Tab ORAL 01/14/ 01/12/15 Discontinue NEEDED 14 d Promethazine 25 Mg ORAL EVERY 6 10 Qty 06/17/14 Discontinue Hcl HOURS 14 d PRN ABDOMINA L PAIN Acetaminophen/ 1 ORAL EVERY 6 10 Qty 06/17/14 Discontinue Hydrocodone Each HOURS 14 d Bitart PRN PAIN Polyethylene 17 Gm ORAL 09/06/14 Discontinue Glycol 3350 DIRECTED 14 d Methocarbamol 1-2 ORAL Q 6H PRN 20 Qty 01/12/15 Discontinue Tab 14 d [no meds] 03/22/15 Discontinue 15 d Sulfamethoxazo 1 Tab ORAL TWICE A 20 Qty 03/22/15 Discontinue le/Trimethopri DAY 15 d m Tramadol Hcl 1-2 ORAL EVERY 6 12 Qty 03/22/15 Discontinue Tab HOURS 15 d PRN PAIN Citalopram 20 Mg ORAL DAILY 03/22/ Active Hydrobromide 15 Social History No social history. Hospital Discharge Instructions No hospital discharge instructions. Plan of Care No plan of care. Functional Status No functional status results. Allergies, Adverse Reactions, Alerts Allergen Type Severity Reaction Status Last Updated Penicillin Allergy Unknown Active 05/10/12 Hydrocodone Adverse Reaction Mild ITCHING Active 09/18/14 Acetaminophen Adverse Reaction Mild ITCHING Active 09/18/14 latex Allergy Mild Active 10/15/12 Immunizations No immunization records. Vital Signs Acute Vital Signs Vital Response Date/Time Temperature (Fahrenheit) 96.6 Pulse 68 bpm Respirations 16 Height 5 ft 2 in Weight 200 lb Body Mass Index 36.6 kg/m^2 Results Test Source Date Result Interp. Ref. Range Comments Activated Partial July 30.9 SEC N 25.0-39.0 Thromboplast Time 2013 11:32am Alanine March 19, 25 U/L L 30-65 Collected by Aminotransferase 2014 nurse? N (ALT/SGPT) 12:07pm Albumin March 19, 4.2 G/DL N 3.4-5.0 Collected by 2014 nurse? N 12:07pm Albumin/Globulin March 19, 1.272 N 1.1-1.8 Collected by Ratio 2013 nurse? N 12:07pm Alkaline March 19, 91 U/L N 38-126 Collected by Phosphatase 2013 nurse? N 12:07pm Amylase Level March 19, 60 U/L N 25-115 Collected by 2014 nurse? N 12:07pm Anion Gap March 19, 14.1 MEQ/L N 3-15 Collected by 2014 nurse? N 12:07pm Aspartate Amino March 19, 23 U/L N 15-37 Collected by Transf (AST/SGOT) 2013 nurse? N 12:07pm BUN/Creatinine March 19, H 10-20 Collected by Ratio 2013 nurse? N 12:07pm Band Neutrophils % July 0 % N 0-6 2013 11:32am Basophils # (Auto) July Not 2013 Performed 11:32am Basophils % July 0 % N 0-2 (Manual) 2013 11:32am Basophils (%) July Not 0-2 (Auto) 2013 Performed 11:32am Blood Urea Nitrogen March 19, 16 MG/DL N 7-18 Collected by 2013 nurse? N 12:07pm Calcium Level March 19, 9.3 MG/DL N 8.8-10.8 Collected by 2013 nurse? N 12:07pm Calculated March 19, 274 MOSM/L L 280-300 Collected by Osmolality 2013 nurse? N 12:07pm Carbon Dioxide March 19, 25 MMOL/L N 22-29 Collected by Level 2013 nurse? N 12:07pm Chloride Level March 19, 107 mmol/L N 98-108 Collected by 2013 nurse? N 12:07pm Creatinine March 19, 0.60 mg/dL N 0.6-1.2 Collected by 2013 nurse? N 12:07pm Differential Total July 100 Cells Counted 2013 11:32am Eosinophils # July 0.0 # 2013 11:32am Eosinophils # July Not (Auto) 2013 Performed 11:32am Eosinophils % July 0 % N 0-4 (Manual) 2013 11:32am Eosinophils (%) July Not 0-4 (Auto) 2013 Performed 11:32am Glucose Level March 19, 89 mg/dL N 70-110 Collected by 2014 nurse? N 12:07pm Hematocrit July 35.70 % N 35.00-45.00 2013 11:32am Hemoglobin July 12.5 g/dL N 12.0-15.5 2013 11:32am Lipase March 19, 54 U/L N 23-300 Collected by 2013 nurse? N 12:07pm Lymphocytes # July 1.4 # 2013 11:32am Lymphocytes # July Not (Auto) 2013 Performed 11:32am Lymphocytes % July 9 % L 20-46 (Manual) 2013 11:32am Lymphocytes (%) July 20-46 (Auto) 2013 Performed 11:32am Mean Corpuscular July 29.0 PG N 26.0-34.0 Hemoglobin 2013 11:32am Mean Corpuscular July 35.0 g/dL N 31.0-37.0 Hemoglobin Concent 2013 11:32am Mean Corpuscular July 83 FL N 80-100 Volume 2013 11:32am Mean Platelet July 9.7 FL H 6.0-9.5 Volume 2013 11:32am Metamyelocytes % July 0 % N 0-1 2013 11:32am Monocytes # July 0.2 # 2013 11:32am Monocytes # (Auto) [place] Not 2013 Performed 11:32am Monocytes % July 1 % L 3-11 (Manual) 2013 11:32am Monocytes (%) July Not 3-11 (Auto) 2013 Performed 11:32am Neutrophils # July 13.6 # 2013 11:32am Neutrophils # July Not (Auto) 2013 Performed 11:32am Neutrophils (%) July 51-67 (Auto) 2013 Performed 11:32am Platelet Count July 297 10^3uL N 150-450 2013 11:32am Potassium Level March 19, 3.8 mmol/L N 3.5-5.1 Collected by 2013 nurse? N 12:07pm Prothromb Time July 1.0 N 0.8-1.4 International Ratio 2013 11:32am Prothrombin Time July 13.1 SEC N 12.3-14.4 2013 11:32am Red Blood Count July 4.31 10^6uL N 4.00-5.00 2013 11:32am Red Cell July 12.7 % N 11.8-15.6 Distribution Width 2013 11:32am Segmented July 90 % H 51-67 Neutrophils % 2013 11:32am Sodium Level March 19, 141 MMOL/L N 135-150 Collected by 2013 nurse? N 12:07pm Streptococcus July Positive H Negative Screen 2013 11:25pm Thyroid Stimulating March 19, 0.49 UIU/ML N 0.46-4.68 Collected by Hormone (TSH) 2013 nurse? N 12:07pm Total Bilirubin March 19, 1.5 MG/DL H 0.1-1.0 Collected by 2013 nurse? N 12:07pm Total Protein March 19, 7.5 G/DL N 6.4-8.5 Collected by 2013 nurse? N 12:07pm Urine Bacteria March 19, Rare /HPF Collected by nurse? NUrine collection method Random void-can't culture 2013 Collected by nurse? N 11:42am Urine Bilirubin March 19, 1+ H Negative Indican, Lodine metabolite and atypical colors mayinterfere with the interpretation of the Bilirubin reaction. 2013 Further testing is required for confirmation. 11:42am Urine Blood March 19, 1+ H Negative Collected by nurse? NUrine collection method Random void-can't culture 2013 Collected by nurse? N 11:42am Urine Clarity March 19, Slightly Collected by nurse? NUrine collection method Random void-can't culture 2013 cloudy Collected by nurse? N 11:42am Urine Collection March 19, Random Collected by nurse? NUrine collection method Random void-can't culture Type 2013 voided Collected by nurse? N 11:42am Urine Color March 19, Dark yellow Collected by nurse? NUrine collection method Random void-can't culture 2013 Collected by nurse? N 11:42am Urine Glucose (UA) March 19, Negative Negative Collected by nurse? NUrine collection method Random void-can't culture 2013 Collected by nurse? N 11:42am Urine Ketones March 19, Trace H Negative Collected by nurse? NUrine collection method Random void-can't culture 2013 Collected by nurse? N 11:42am Urine Leukocyte March 19, Negative Negative Collected by nurse? NUrine collection method Random void-can't culture Esterase 2013 Collected by nurse? N 11:42am Urine Mucus March 19, 2+ H Collected by nurse? NUrine collection method Random void-can't culture 2013 Collected by nurse? N 11:42am Urine Nitrite March 19, Negative Negative Collected by nurse? NUrine collection method Random void-can't culture 2013 Collected by nurse? N 11:42am Urine March 19, Negative Negative Collected by nurse? NUrine collection method Random void-can't culture Test 2013 Collected by nurse? N 11:42am Urine Protein March 19, 1+ H Negative Collected by nurse? NUrine collection method Random void-can't culture 2013 Collected by nurse? N 11:42am Urine RBC March 19, 5-10 /HPF H Collected by nurse? NUrine collection method Random void-can't culture 2013 Collected by nurse? N 11:42am Urine Specific March 19, 1.025 1.005-1.030 Collected by nurse? NUrine collection method Random void-can't culture [place] 2013 Collected by nurse? N 11:42am Urine Squamous March 19, >100 /LPF Collected by nurse? NUrine collection method Random void-can't culture Epithelial Cells 2013 Collected by nurse? N 11:42am Urine Urobilinogen March 19, 0.2 mg/dL 0.2-1.0 Collected by nurse? NUrine collection method Random void-can't culture 2013 Collected by nurse? N 11:42am Urine WBC March 19, 0-2 /HPF Collected by nurse? NUrine collection method Random void-can't culture 2013 Collected by nurse? N 11:42am Urine pH March 19, 6.0 5.0 - 8.0 Collected by nurse? NUrine collection method Random void-can't culture 2013 Collected by nurse? N 11:42am White Blood Count July 15.06 10^3uL H 4.0-11.0 2013 11:32am Volume Urine March 19, 10 ml Collected by nurse? NUrine collection method Random void-can't culture Centrifuged 2013 Collected by nurse? N 11:42am Estimat Glomerular March 19, 145.1 Collected by Filtration Rate 2013 nurse? N 12:07pm Blood Morphology July Normal NORMAL Comment 2013 11:32am Estimated GFR March 19, 119.9 Collected by (Non- 2013 nurse? N [place] 12:07pm Urine RBC (Auto) May 10, Negative Negative 2011 12:50pm Absolute Band July 0.0 # Neutrophils 2013 11:32am Calcium/Ionized March 19, 4.00 mg/dL Collected by Calcium Ratio 2014 nurse? N 12:07pm Urine Culture Urine-Oliver March 19, an Catch 2013 11:42am Procedures No known history of procedures.
--- OUTSIDE RECORDS SUMMARY | 2017-12-18 08:35 | External Medical Summary | Continuity of Care Document ---
:1985 Author Organization [facility] Care Team Providers Name Role Phone TARA HOGAN MD Unavailable Unavailable Insurance Providers Payer Name Policy Number Subscriber Name Relationship Brooke [facility] [employer] [facility] [id number] Monika Odonnell 19 Self / Same As Patient Advance Directives Directive Response Recorded Date/Time Advanced Directives No 12/28/15 11:59pm Type Living Will 10/21/15 7:38pm Chief Complaint and Reason for Visit Chief Complaint Dental Complaint Reason for Visit Toothache Migraine Problems Active Problems Medical Problem Onset Date Status Abdominal pain ~03/19/2014 Resolved Adenotonsillar hypertrophy Unknown Resolved Breast infection Unknown Resolved Carpal tunnel syndrome Unknown Resolved Cellulitis Unknown Resolved Colonoscopy Unknown Resolved Diarrhea ~03/19/2014 Resolved Gastroenteritis ~09/25/2015 Acute HOME MED 05/10/2012 Resolved INTRAUT 05/10/2012 Jaw pain 01/14/2014 Resolved Migraine ~09/25/2015 Acute NAUSEA MED GIVEN FOR HOME 05/10/2012 NAUSEA/CRAMPING 05/10/2012 Resolved Nausea and vomiting ~03/19/2014 Resolved Normal delivery procedure 10/15/2012 Resolved Pain in toe 09/20/2013 Resolved Post-op pain Unknown Resolved Post-tonsillectomy hemorrhage ~09/10/2014 Resolved Strep tonsillitis ~07/26/2014 Resolved Toothache 01/14/2014 Resolved Toothache Unknown Acute Upper respiratory infection ~10/21/2015 Acute Urinary tract infection ~09/25/2015 Acute Medications Current Home Medications Medication Dose Units Route Directions Days/Qty Instructions Start Date Clindamycin Hcl 300 Mg ORAL Three Times A Day 12/29/15 300 Mg Tramadol Hcl 1-2 Tab ORAL Every 6 Hours as 20 12/29/15 (Ultram) 50 Mg needed for Pain Past Home Medications Medication [...] See Instructions 10/21/15 Discontinued 250 Mg Oral Social History Query Response Start Date Stop Date Smoking Status Never smoker Hospital Discharge Instructions No hospital discharge instructions. Plan of Care Discharge Date 12/29/15 1:09am Disposition 01 HOME OR SELF-CARE Condition at Discharge Stable Instructions/Education Provided Tramadol (By mouth) Dental Caries (ED) Migraine Headache (ED) Prescriptions See Medication Section Referrals TARA HOGAN MD - Additional Instructions/Education Go home to sleep tonight. Take pain medication as needed. Continue your antibiotic. Call your dentist tomorrow to arrange follow up care for your toothache and your family doctor for your headache if it comes back. Return to the ER if you get worse. Some of your test results may not [...] worrisome symptoms. * Emergency Department phone number: [phone], x [phone]* MEDICAL RECORD If you need copies of your X-rays, call [phone] x [phone]. If you need copies of [...] the billing parties for services. SERVICE BILLING [facility] Emergency Room Services [facility] Physician Services [facility] X-rays [place] [facility] Patients will receive bills for services from the appropriate provider. If you have any questions about your [facility] bill, our staff will be happy to assist you. Please call [phone], and ask for the billing department. THANK YOU for choosing [facility] as your emergency care provider! Care Plan [...] Status Last Updated Penicillin Allergy Unknown Active 12/29/15 Hydrocodone Adverse Reaction Mild ITCHING Active 12/29/15 latex Allergy Mild Active 12/29/15 Immunizations No immunization records. Vital Signs Acute Vital Signs Vital Response Date/Time Temperature (Fahrenheit) 97.4 12/28/2015 11:59pm Pulse 57 bpm 12/29/2015 1:08am Respirations 16 12/29/2015 1:08am Height 5 ft 0 in Weight 189 lb Body Mass Index 37.0 kg/m^2 Results No known relevant diagnostic tests, laboratory data and/or discharge summary. Procedures No known history of procedures. Encounters Encounter Location Arrival/Admit Date Discharge/Depart Date Attending Provider Departed Nva 12/28/15 11:57pm 12/29/15 1:09am LOUISE Emergency Room [facility] Recent Diagnosis
--- OUTSIDE RECORDS SUMMARY | 2017-12-18 08:35 | External Medical Summary | Continuity of Care Document ---
:1985 Author Organization [facility] Address [address] [place], [place] [id number] Phone Care Team Providers Name Role Phone Vignesh Antonio MD Unavailable Unavailable Allergies, Adverse Reactions, Alerts Substance Reaction Severity Status Penicillins Rash Unknown Active Medications Medication Instructions Dosage Effective Dates Status Comments (start - stop) Formula take 1 Tablet by - Active use NDC 28 mg iron-800 Oral route every [id number] mcg tablet day Zofran 4 mg take [...] Visit Members Timothy Stewart Encounter for Jer Referring In [facility] suprvsn of normal 4-201 Gabby. Provider: Health PA, , first 7 700 Vignesh [email or web address] weeks Medical Marisela L, 1522, gestation of [facility] [place], pregnancyPersonal , [facility], history of dis of [address], , the nervous sys Nav [place], [place], [address]. tel:[phone] tel: , [place]. [id number] tel: [phone] Associates Terry May-1 Jer In Womens 8-201 Gabby. Health WANDER, 7 700 [address] Medical [address], Center [place], , [facility], 120, , Stewart, [facility], tel:[phone] , [place]. tel: [phone] Associates Terry Suprvsn of preg w Shin-2 Jer Referring In Womens poor reprodctv or 6-201 Gabby. Provider: Health WANDER, obstet hx, first 7 700 Vignesh [address] triPap Smear Medical Marisela L, 1522, Screening, [facility] [place], CervixEncounter , [facility], for suprvsn of [address], , normal , Nav Stewart first trimester9 [place], [address]. tel: weeks gestation of tel: pregnancyPersonal , [place]. [id number] history of dis of tel: the nervous sys [id number] and sense organs Associates Nav Fe-2 Jer Referring In Womens 0-200 Gabby. Provider: Gregory VIRAMONTES, 8 700 Vignesh [address] Medical Marisela L, 1522, [facility] [place] [address] Kevin, [facility], [address], , Nav Stewart, [facility] [place], [address]. tel:[phone] tel: , [place]. [id number] tel: [phone] Family History Family Member Diagnosis Age At [...] [employer] [place] - Medicaid [place] [id number] Social History Type Description Quantity Date Captured [...]
--- OUTSIDE RECORDS SUMMARY | 2017-12-18 08:35 | External Medical Summary | Continuity of Care Document ---
:1985 Author Organization [facility] Care Team Providers Name Role Phone TARA HOGAN MD Unavailable Unavailable Insurance Providers Payer Name Policy Number Subscriber Name Relationship Self Pay Monika Myers 19 Self / Same As Patient Advance Directives Directive Response Recorded Date/Time Advanced Directives No 04/19/17 5:40pm Type Living Will 04/19/17 5:40pm Chief Complaint and Reason for Visit Chief Complaint Pain Reason for Visit Migraine Problems Active Problems Medical Problem Onset [...] Unknown Acute Viral gastroenteritis Unknown Acute Medications No known medications. Social History Query Response Start Date Stop Date Smoking Status Never smoker Hospital Discharge Instructions No hospital discharge instructions. Plan of Care Discharge Date 04/19/17 7:30pm Disposition 01 HOME OR SELF-CARE Condition at Discharge Stable Instructions/Education Provided Migraine Headache (DC) Prescriptions See Medication Section Referrals TARA HOGAN MD - Additional Instructions/Education Return home and rest in a dark, cold, and quiet envionment. Force water thought the night. See your ob or primary care provider this week. If symptoms worsen, return to the ER. Some of your test results may not [...] worrisome symptoms. * Emergency Department phone number: [phone], x [phone]* MEDICAL RECORD If you need copies of your X-rays, call [phone] x [phone]. If you need copies of [...] the billing parties for services. SERVICE BILLING [employer] Emergency Room Services [facility] Physician Services [facility] X-rays [facility] Patients will receive bills for services from the appropriate provider. If you have any questions about your [facility] bill, our staff will be happy to assist you. Please call [phone], and ask for the billing department. THANK YOU for choosing [facility] as your emergency care provider! Care Plan and Goals Follow instructions as given Functional Status No functional status results. Allergies, Adverse Reactions, Alerts Allergen Type Severity Reaction Status Last Updated Penicillin Allergy Unknown Active 12/05/16 Hydrocodone Adverse Reaction Mild ITCHING Active 12/05/16 Hydromorphone Adverse Reaction Mild feeling of warmth in head Active 12/05 latex Allergy Mild Active 12/05/16 Immunizations No immunization records. Vital Signs Acute Vital Signs Vital Response Date/Time Temperature (Fahrenheit) 98.7 04/19/2017 7:39pm Pulse 89 bpm 04/19/2017 7:39pm Respirations 18 04/19/2017 7:39pm Height 5 ft 0 in Weight 200 lb Body Mass Index 39.0 kg/m^2 Results Laboratory Results Test Name Result Units Flags Reference Collection Result Comments Date/Time Date/Time White Blood Count 9.92 10^3uL 4.0-11.0 04/19/2017 04/19/2017 6:00pm 6:28pm Red Blood Count 3.99 10^6uL L 4.00-5.00 04/19/2017 04/19/2017 6:00pm 6:28pm Hemoglobin 11.8 g/dL L 12.0-15.5 04/19/2017 04/19/2017 6:00pm 6:28pm Hematocrit 33.80 % L 35.00-45.00 04/19/2017 04/19/2017 6:00pm 6:28pm Mean Corpuscular 85 FL 80-100 04/19/2017 04/19/2017 Volume 6:00pm 6:28pm Mean Corpuscular 29.6 PG 26.0-34.0 04/19/2017 04/19/2017 Hemoglobin 6:00pm 6:28pm Mean Corpuscular 34.9 g/dL 31.0-37.0 04/19/2017 04/19/2017 Hemoglobin Concent 6:00pm 6:28pm Red Cell 12.6 % 11.8-15.6 04/19/2017 04/19/2017 Distribution Width 6:00pm 6:28pm Platelet Count 255 10^3uL 150-450 04/19/2017 04/19/2017 6:00pm 6:28pm Mean Platelet 9.7 FL H 6.0-9.5 04/19/2017 04/19/2017 Volume 6:00pm 6:28pm Neutrophils (%) 69 % H 51-67 04/19/2017 04/19/2017 (Auto) 6:00pm 6:28pm Lymphocytes (%) 24 % 20-46 04/19/2017 04/19/2017 (Auto) 6:00pm 6:28pm Monocytes (%) 6 % 3-11 04/19/2017 04/19/2017 (Auto) 6:00pm 6:28pm Eosinophils (%) 1 % 0-4 04/19/2017 04/19/2017 (Auto) 6:00pm 6:28pm Basophils (%) 0 % 0-2 04/19/2017 04/19/2017 (Auto) 6:00pm 6:28pm Neutrophils # 6.9 X10^3 04/19/2017 04/19/2017 (Auto) 6:00pm 6:28pm Lymphocytes # 2.3 X10^3 04/19/2017 04/19/2017 (Auto) 6:00pm 6:28pm Monocytes # (Auto) 0.6 X10^3 04/19/2017 04/19/2017 6:00pm 6:28pm Eosinophils # 0.1 10^3uL 04/19/2017 04/19/2017 (Auto) 6:00pm 6:28pm Basophils # (Auto) 0.0 10^3uL 04/19/2017 04/19/2017 6:00pm 6:28pm Sodium Level 142 mmol/L 135-150 04/19/2017 04/19/2017 6:00pm 6:34pm Potassium Level 3.9 mmol/L 3.5-5.1 04/19/2017 04/19/2017 6:00pm 6:34pm Chloride Level 109 mmol/L H 98-108 04/19/2017 04/19/2017 6:00pm 6:34pm Carbon Dioxide 22 mmol/L 22-29 04/19/2017 04/19/2017 Level 6:00pm 6:34pm Anion Gap 14.8 MEQ/L 3-15 04/19/2017 04/19/2017 6:00pm 6:34pm Blood Urea Nitrogen 10 mg/dL 7-18 04/19/2017 04/19/2017 6:00pm 6:34pm Creatinine 0.60 mg/dL 0.6-1.2 04/19/2017 04/19/2017 6:00pm 6:34pm BUN/Creatinine 17 10-20 04/19/2017 04/19/2017 Ratio 6:00pm 6:34pm Estimat Glomerular 142.0 04/19/2017 04/19/2017 Filtration Rate 6:00pm 6:34pm Estimated GFR 117.4 04/19/2017 04/19/2017 (Non- 6:00pm 6:34pm [place] Glucose Level 93 mg/dL 70-110 04/19/2017 04/19/2017 6:00pm 6:34pm Calculated 272 mosm/L L 280-300 04/19/2017 04/19/2017 Osmolality 6:00pm 6:34pm Calcium Level 9.6 mg/dL 8.8-10.8 04/19/2017 04/19/2017 6:00pm 6:34pm Calcium/Ionized 4.1 mg/dL 3.8-4.6 04/19/2017 04/19/2017 Calcium Ratio 6:00pm 6:34pm Total Bilirubin 0.3 mg/dL 0.1-1.0 04/19/2017 04/19/2017 6:00pm 6:34pm Alkaline 77 U/L 38-126 04/19/2017 04/19/2017 Phosphatase 6:00pm 6:34pm Aspartate Amino 18 U/L 15-37 04/19/2017 04/19/2017 Transf (AST/SGOT) 6:00pm 6:34pm Alanine 29 U/L L 30-65 04/19/2017 04/19/2017 Aminotransferase 6:00pm 6:34pm (ALT/SGPT) Total Protein 7.5 g/dL 6.4-8.5 04/19/2017 04/19/2017 6:00pm 6:34pm Albumin 4.2 g/dL 3.4-5.0 04/19/2017 04/19/2017 6:00pm 6:34pm Albumin/Globulin 1.272 1.1-1.8 04/19/2017 04/19/2017 Ratio 6:00pm 6:34pm Procedures No known history of procedures. Encounters Encounter Location Arrival/Admit Date Discharge/Depart Date Attending Provider Departed Nav 04/19/17 5:31pm 04/19/17 7:30pm FLAVIO [facility] Emergency Room [facility] Recent Diagnosis
--- OUTSIDE RECORDS SUMMARY | 2017-12-18 08:35 | External Medical Summary | Continuity of Care Document ---
:1985 Author Organization [facility] Care Team Providers Name Role Phone TARA HOGAN MD Unavailable Unavailable Insurance Providers Payer Name Policy Number Subscriber Name [facility] [id number] Monika Smith 18 Self / Same As Patient Advance Directives Directive Response Recorded Date/Time Advanced Directives Unknown 09/26/15 12:24am Type Living Will 09/26/15 12:24am Chief Complaint and Reason for Visit Chief Complaint Pain Reason for Visit Gastroenteritis Urinary tract infection Migraine Problems Active Problems Medical Problem Onset Date Status Abdominal pain ~03/19/2014 Resolved Adenotonsillar hypertrophy Unknown Acute Breast infection Unknown Acute Carpal tunnel syndrome Unknown Acute Cellulitis Unknown Acute Colonoscopy Unknown Resolved Diarrhea ~03/19/2014 Resolved Gastroenteritis Unknown Acute HOME MED 05/10/2012 Resolved INTRAUT 05/10/2012 Jaw pain 01/14/2014 Resolved Migraine Unknown Acute NAUSEA MED GIVEN FOR HOME 05/10/2012 NAUSEA/CRAMPING 05/10/2012 Resolved Nausea and vomiting ~03/19/2014 Resolved Normal delivery procedure 10/15/2012 Resolved Pain in toe 09/20/2013 Resolved Post-op pain Unknown Acute Post-tonsillectomy hemorrhage ~09/10/2014 Acute Strep tonsillitis ~07/26/2014 Acute Toothache 01/14/2014 Resolved Urinary tract infection Unknown Acute Medications Current Home Medications Medication Dose Units Route Directions Days/Qty Instructions Start Date Ondansetron 4 Mg 4 Mg ORAL Every 6 Hours 6 09/26/15 as needed for Nausea Ciprofloxacin 500 500 Mg ORAL Twice A Day 10 09/26/15 Mg [No Home Meds] Unknown As Needed 09/26/15 Dose Past Home Medications Medication Directions Ordered Status [...] Discontinued Mg Oral Ibuprofen (Motrin) 200 Mg Tablet, As Needed 01/14/14 Discontinued 2-4 Tab Oral Acetaminophen 500 Mg Tablet, 2 As Needed 01/14/14 Discontinued Tab Oral Promethazine Hcl 25 Mg Tab, 25 Mg Every 6 Hours as needed for 03/19/14 Discontinued Oral Abdominal Pain Acetaminophen/Hydrocodone Bitart Every 6 [...] Daily 03/22/15 Discontinued Tablet, 20 Mg Oral Social History Query Response Start Date Stop Date Smoking Status Never smoker Hospital Discharge Instructions No hospital discharge instructions. Plan of Care Discharge Date 09/26/15 1:50am Disposition 01 HOME OR SELF-CARE Condition at Discharge Stable Instructions/Education Provided Ciprofloxacin (By mouth) Loperamide (By mouth) Ondansetron (By mouth, Into the mouth) Urinary Tract Infection in Women (ED) Gastroenteritis (ED) Forms Provided Return to Work Prescriptions See Medication Section Referrals TARA HOGAN MD - Additional Instructions/Education Take Cipro twice a day for 5 days for your urinary tract infection. Take Zofran as needed for nausea. Take Imodium as needed for diarrhea. Drink clear liquids and advance diet as tolerated. See your doctor in 2 days if not improving. Return to the ER if you get [...] worrisome symptoms. * Emergency Department phone number: [phone], x [phone]* MEDICAL RECORD If you need copies of your X-rays, call [phone] x [phone]. If you need copies of [...] the billing parties for services. SERVICE BILLING LIBERTARIAN Emergency Room Services [facility] Physician Services [facility] X-rays [facility] Patients will receive bills for services from the appropriate provider. If you have any questions about your [facility] bill, our staff will be happy to assist you. Please call [phone], and ask for the billing department. THANK YOU for choosing [facility] as your emergency care provider! Care Plan and Goals ~~Discharge Care Plan~~ Problem: Abdominal pain Goal: Decreased level of pain. Return to usual activities. Instructions: Take medication(s) as directed; follow up with primary care physician as directed; follow patient home care instructions. Functional Status No functional status results. Allergies, Adverse Reactions, Alerts Allergen Type Severity Reaction Status Last Updated Penicillin Allergy Unknown Active 05/10/12 Hydrocodone Adverse Reaction Mild ITCHING Active 09/18/14 Acetaminophen Adverse Reaction Mild ITCHING Active 09/18/14 latex Allergy Mild Active 10/15/12 Immunizations No immunization records. Vital Signs Acute Vital Signs Vital Response Date/Time Temperature (Fahrenheit) 98.3 09/26/2015 12:24am Pulse 66 bpm 09/26/2015 1:50am Respirations 16 09/26/2015 1:50am Height 5 ft 0 in Weight 189 lb Body Mass Index 37.0 kg/m^2 Results Laboratory Results Test Name Result Units Flags Reference Collection Result Comments Date/Time Date/Time White Blood Count 5.92 10^3uL 4.0-11.0 09/26/2015 09/26/2015 12:34am 1:00am Red Blood Count 4.26 10^6uL 4.00-5.00 09/26/2015 09/26/2015 12:34am 1:00am Hemoglobin 12.3 g/dL 12.0-15.5 09/26/2015 09/26/2015 12:34am 1:00am Hematocrit 35.20 % 35.00-45.00 09/26/2015 09/26/2015 12:34am 1:00am Mean Corpuscular 83 FL 80-100 09/26/2015 09/26/2015 Volume 12:34am 1:00am Mean Corpuscular 28.9 PG 26.0-34.0 09/26/2015 09/26/2015 Hemoglobin 12:34am 1:00am Mean Corpuscular 34.9 g/dL 31.0-37.0 09/26/2015 09/26/2015 Hemoglobin Concent 12:34am 1:00am Red Cell 12.4 % 11.8-15.6 09/26/2015 09/26/2015 Distribution Width 12:34am 1:00am Platelet Count 225 10^3uL 150-450 09/26/2015 09/26/2015 12:34am 1:00am Mean Platelet 10.1 FL H 6.0-9.5 09/26/2015 09/26/2015 Volume 12:34am 1:00am Neutrophils (%) 56 % 51-67 09/26/2015 09/26/2015 (Auto) 12:34am 1:00am Lymphocytes (%) 34 % 20-46 09/26/2015 09/26/2015 (Auto) 12:34am 1:00am Monocytes (%) 7 % 3-11 09/26/2015 09/26/2015 (Auto) 12:34am 1:00am Eosinophils (%) 2 % 0-4 09/26/2015 09/26/2015 (Auto) 12:34am 1:00am Basophils (%) 0 % 0-2 09/26/2015 09/26/2015 (Auto) 12:34am 1:00am Neutrophils # 3.3 X10^3 09/26/2015 09/26/2015 (Auto) 12:34am 1:00am Lymphocytes # 2.0 X10^3 09/26/2015 09/26/2015 (Auto) 12:34am 1:00am Monocytes # (Auto) 0.4 X10^3 09/26/2015 09/26/2015 12:34am 1:00am Eosinophils # 0.1 10^3uL 09/26/2015 09/26/2015 (Auto) 12:34am 1:00am Basophils # (Auto) 0.0 10^3uL 09/26/2015 09/26/2015 12:34am 1:00am Volume Urine 12 mL 09/26/2015 09/26/2015 Centrifuged 12:34am 12:59am Urine Collection CLEAN 09/26/2015 09/26/2015 Type CATCH 12:34am 12:59am Urine Color Yellow 09/26/2015 09/26/2015 12:34am 12:58am Urine Clarity Cloudy 09/26/2015 09/26/2015 12:34am 12:58am Urine pH 6.0 5.0 - 8.0 09/26/2015 09/26/2015 12:34am 12:58am Urine Specific 1.025 1.005-1.030 09/26/2015 09/26/2015 [place] 12:34am 12:58am Urine Protein Negative Negative 09/26/2015 09/26/2015 12:34am 12:58am Urine Glucose (UA) Negative Negative 09/26/2015 09/26/2015 12:34am 12:58am Urine RBC (Auto) Negative Negative 09/26/2015 09/26/2015 12:34am 12:58am Urine Ketones Negative Negative 09/26/2015 09/26/2015 12:34am 12:58am Urine Nitrite Negative Negative 09/26/2015 09/26/2015 12:34am 12:58am Urine Bilirubin Negative Negative 09/26/2015 09/26/2015 12:34am 12:58am Urine Urobilinogen 0.2 mg/dL 0.2-1.0 09/26/2015 09/26/2015 12:34am 12:58am Urine Leukocyte 1+ H Negative 09/26/2015 09/26/2015 Esterase 12:34am 12:58am Urine RBC None Seen /HPF 09/26/2015 09/26/2015 12:34am 1:05am Urine WBC 20-50 /HPF H 09/26/2015 09/26/2015 12:34am 1:05am Urine Bacteria 1+ /HPF 09/26/2015 09/26/2015 12:34am 1:05am Urine Squamous 10-20 /LPF 09/26/2015 09/26/2015 Epithelial Cells 12:34am 1:05am Urine Mucus 1+ 09/26/2015 09/26/2015 12:34am 1:05am Sodium Level 141 mmol/L 135-150 09/26/2015 09/26/2015 12:34am 1:09am Potassium Level 3.6 mmol/L 3.5-5.1 09/26/2015 09/26/2015 12:34am 1:09am Chloride Level 105 mmol/L 98-108 09/26/2015 09/26/2015 12:34am 1:09am Carbon Dioxide 24 mmol/L 22-29 09/26/2015 09/26/2015 Level 12:34am 1:09am Anion Gap 15.8 MEQ/L H 3-15 09/26/2015 09/26/2015 12:34am 1:09am Blood Urea Nitrogen 11 mg/dL 7-18 09/26/2015 09/26/2015 12:34am 1:09am Creatinine 0.62 mg/dL 0.6-1.2 09/26/2015 09/26/2015 12:34am 1:09am BUN/Creatinine 18 10-09/26/2015 09/26/2015 Ratio 12:34am 1:09am Estimat Glomerular 137.7 09/26/2015 09/26/2015 Filtration Rate 12:34am 1:09am Estimated GFR 113.8 09/26/2015 09/26/2015 (Non- 12:34am 1:09am [place] Glucose Level 101 mg/dL 70-110 09/26/2015 09/26/2015 12:34am 1:09am Calculated 272 mosm/L L 280-300 09/26/2015 09/26/2015 Osmolality 12:34am 1:09am Calcium Level 9.5 mg/dL 8.8-10.8 09/26/2015 09/26/2015 12:34am 1:09am Calcium/Ionized 4.2 mg/dL 3.8-4.6 09/26/2015 09/26/2015 Calcium Ratio 12:34am 1:09am Total Bilirubin 0.3 mg/dL # 0.1-1.0 09/26/2015 09/26/2015 12:34am 1:09am Alkaline 74 U/L 38-126 09/26/2015 09/26/2015 Phosphatase 12:34am 1:09am Aspartate Amino 15 U/L 15-37 09/26/2015 09/26/2015 Transf (AST/SGOT) 12:34am 1:09am Alanine 31 U/L 30-65 09/26/2015 09/26/2015 Aminotransferase 12:34am 1:09am (ALT/SGPT) Total Protein 7.2 g/dL 6.4-8.5 09/26/2015 09/26/2015 12:34am 1:09am Albumin 4.1 g/dL 3.4-5.0 09/26/2015 09/26/2015 12:34am 1:09am Albumin/Globulin 1.322 1.1-1.8 09/26/2015 09/26/2015 Ratio 12:34am 1:09am Amylase Level 56 U/L 25-115 09/26/2015 09/26/2015 12:34am 1:09am Lipase 63 U/L 23-300 09/26/2015 09/26/2015 12:34am 1:09am Procedures No known history of procedures. Encounters Encounter Location Arrival/Admit Date Discharge/Depart Date Attending Provider Departed Nav 09/26/15 12:20am 09/26/15 1:50am LOUISE, Emergency Room [facility] Alicia DO Recent Diagnosis
--- OUTSIDE RECORDS SUMMARY | 2017-12-18 08:36 | External Medical Summary | Continuity of Care Document ---
:1985 Author Organization [facility] Allergies Active Description Code Type Severity Reaction Onset Reported/ Identified Relationship Clinical to Patient Status Yes Penicillins 476 3 N/A Rash Medications Medication Packaging Start Date Stop Date Route Dosage Sig 06/29/2009 FORMULA 7 take 1 Tablet by Oral route every day Tablet 05/26/2017 FORMULA take 1 Tablet by Oral route every day Capsule 05/28/2017 MACROBID 7 take 1 Tablet by ORAL route 2 times every day Capsule 07/15/2017 BUTALBITAL-ACETAMIN 7 take 1 - 2 OPHEN-CAFFE capsule by oral route every 6 hours as needed not to exceed 6 capsules per 24hrs Capsule 07/21/2017 BUTALBITAL-ACETAMIN 7 take 1 - 2 OPHEN-CAFFE capsule by oral route every 6 hours as needed not to exceed 6 capsules per 24hrs Bottle 08/07/[address] 15 GLUCONATE milliliter by mucous membrane route 2 times every day in the mouth, swish in mouth for 30 seconds then spit out x 7 days FERROUS Tablet 09/18/2017 SULFATE 8 take 1 tablet by oral route every day Capsule 11/19/2017 NITROFURANTOIN 7 take 1 by Oral MONO-MACRO route every 12 hours for 10 days Problems Date Dx Attending Type Code Diagnosis Diagnosed By Coded 08/07/2017 Gabby Randle Z34.82 Encounter for L suprvsn of normal , second trimester 08/07/2017 Gabby Randle Z3A.20 20 weeks gestation L of 09/17/2017 W 256.4 POLYCYSTIC OVARIES 09/17/2017 W 626.0 ABSENCE OF MENSTRUATION 10/01/2017 Gabby Randle O09.293 Suprvsn of preg w L poor reprodctv or obstet hx, third tri 10/01/2017 Gabby Randle O36.8130 Decreased L movements, third trimester, unsp 10/01/2017 Gabby Randle O44.43 Low Lying Placenta L Nos Or W/out Hemorrhage, Third Trimester 10/01/2017 Gabby Randle Z3A.28 28 weeks gestation L of 12/03/2017 Gabby Randle O09.293 Suprvsn of preg w L poor reprodctv or obstet hx, third tri 12/03/2017 Gabby Randle Z3A.37 37 weeks gestation L of Procedures Code Description [place] [address] Office 01/20/2008 consultation, minor 60426 Ultrasnd 08/07/2017 exam of preg uterus, compl 58654 Ultrasnd 10/01/2017 preg uterus, flwup/repeat 48582 Ultrasnd 12/03/2017 preg uterus, flwup/repeat Results There is no data. Encounters ACCT No. Visit Discharge Status Pt. Type Provider Facility Loc./Unit Complaint Date/Time [id number] 12/10/2017 12/10/2017 CLS Outpatient Jer, 08:30:00 23:59:59 Gabby L [id number] 12/03/2017 12/03/2017 CLS Outpatient Ivan, 10:05:00 23:59:59 Crow Gibson [id number] 12/03/2017 12/03/2017 CLS Outpatient Jer, 09:45:00 23:59:59 Gabby L [id number] 11/27/2017 11/27/2017 CLS Outpatient Jer, 10:42:00 23:59:59 Gabby L [id number] 11/21/2017 11/21/2017 CLS Outpatient Jer, 08:39:00 23:59:59 Gabby L [id number] 11/19/2017 11/19/2017 CLS Outpatient Jer, 15:30:00 23:59:59 Gabby L [id number] 11/19/2017 11/19/2017 CLS Outpatient Jer, 14:19:00 23:59:59 Gabby L [id number] 11/12/2017 11/12/2017 CLS Outpatient Jer, 09:45:00 23:59:59 Gabby L [id number] 10/29/2017 10/29/2017 CLS Outpatient Jer, 08:30:00 23:59:59 Gabby L [id number] 10/15/2017 10/15/2017 CLS Outpatient Jer, 09:30:00 23:59:59 Gabby L [id number] 10/11/2017 10/11/2017 CLS Outpatient Jer, 10:58:00 23:59:59 Gabby L [id number] 10/01/2017 10/01/2017 CLS Outpatient Jer, 08:40:00 23:59:59 Gabby L [id number] 10/01/2017 10/01/2017 CLS Outpatient Jer, 08:15:00 23:59:59 Gabby L [id number] 09/18/2017 09/18/2017 CLS Outpatient Jer, 08:56:00 23:59:59 Gabby L [id number] 09/17/2017 09/17/2017 CLS Outpatient Jer, 09:55:00 23:59:59 Gabby L [id number] 08/27/2017 08/27/2017 CLS Outpatient Jer, 10:15:00 23:59:59 Gabby L [id number] 08/27/2017 08/27/2017 CLS Outpatient Jer, 08:25:00 23:59:59 Gabby L [id number] 08/19/2017 08/19/2017 CLS Outpatient Jer, 11:30:00 23:59:59 Gabby L [id number] 08/07/2017 08/07/2017 CLS Outpatient Sobbing, 10:40:00 23:59:59 Mick L [id number] 08/07/2017 08/07/2017 CLS Outpatient Jer, 10:15:00 23:59:59 Gabby L [id number] 07/25/2017 07/25/2017 CLS Outpatient Jer, 08:22:00 23:59:59 Gabby L [id number] 07/22/2017 07/22/2017 CLS Outpatient Jer, 11:15:00 23:59:59 Gabby L [id number] 07/21/2017 07/21/2017 CLS Outpatient Jer, 08:29:00 23:59:59 Gabby L [id number] 07/15/2017 07/15/2017 CLS Outpatient Jer, 13:50:00 23:59:59 Gabby L [id number] 06/24/2017 06/24/2017 CLS Outpatient Jer, 08:55:00 23:59:59 Gabby L [id number] 06/23/2017 06/23/2017 CLS Outpatient Jer, 14:30:00 23:59:59 Gabby L [id number] 06/17/2017 06/17/2017 CLS Outpatient Jer, 08:57:00 23:59:59 Gabby L [id number] 06/02/2017 06/02/2017 CLS Outpatient Jer, 14:17:00 23:59:59 Gabby L [id number] 06/02/2017 06/02/2017 CLS Outpatient Jer, 08:39:00 23:59:59 Gabby L [id number] 05/28/2017 05/28/2017 CLS Outpatient Jer, 08:25:00 23:59:59 Gabby L [id number] 05/27/2017 05/27/2017 CLS Outpatient Jer, 09:43:00 23:59:59 Gabby L [id number] 05/26/2017 05/26/2017 CLS Outpatient Jer, 15:00:00 23:59:59 Gabby L [id number] 05/26/2017 Document 17:31:12 Registration [id number] 01/20/2008 Document 13:32:00 Registration
--- OUTSIDE RECORDS SUMMARY | 2017-12-18 08:36 | External Medical Summary | Continuity of Care Document ---
:1985 Author Organization [facility] Address [address] [place], [place] [id number] Phone Care Team Providers Name Role Phone Vignesh Antonio MD Unavailable Unavailable Allergies, Adverse Reactions, Alerts Substance Reaction Severity Status Penicillins Rash Unknown Active Medications Medication Instructions Dosage Effective Dates Status Comments (start - stop) Formula take 1 Tablet by - Active use NDC 28 mg iron-800 Oral route every [id number] mcg tablet day Zofran 4 mg take [...] Marisela L, 1522, gestation of [address] [place], pregnancyPersonal , [facility], history of dis of [address], , the nervous sys Nav Stewart, [place], [address]. tel:[phone] tel: , . [id number] tel: [phone] Associates Terry Suprvsn of preg w Shin-2 Jer Referring In Womens poor reprodctv or 6-201 Gabby. Provider: Gregory VIRAMONTES, obstet hx, first 7 700 Vignesh [address] triPap Smear Medical Marisela L, 1522, Screening, [address] [place], CervixEncounter , [facility], for suprvsn of [address], [id number], normal , Nav Stewart, first trimester9 [place], [address]. tel: weeks gestation of [phone] [facility] . [id number] history of dis of tel: the nervous sys [id number] and sense organs Associates Nav Jan- Jer Referring In Womens 0-200 Gabby. Provider: Gregory VIRAMONTES, 8 700 Vignesh [address] Medical Marisela L, 1522, [address] [place], , [facility], [address], , [place], [address]. tel:[phone] tel: , [place]. [id number] tel: [phone] Family History Family Member Diagnosis Age At [...] Unknown Payers Payer name Insurance type Covered constitution party ID Authorization(s) [employer] [place] - Medicaid [place] [id number] Social History Type Description Quantity Date Captured [...]
--- OUTSIDE RECORDS SUMMARY | 2017-12-18 08:36 | External Medical Summary | Continuity of Care Document ---
:1985 Author Organization [facility] Address [address] [place], [place] [phone] Phone Care Team Providers Name Role Phone [...] NDC 28 mg iron-800 Oral route every [id number] mcg tablet day Zofran 4 mg take [...] Care Team Description For Visit Members [facility] Jer In [facility] 3-201 Gabby. [facility], 7 700 [address] Kevin, [place], 120, [id number], [facility], tel: [phone] , [place]. tel: [phone] Associates Terry May-2 Jer In Womens 8-201 Gabby. Health WANDER, 7 700 [address] Kevin, [facility], 120, [id number], [facility], tel: [phone] , . tel: [phone] [facility] Suprvsn of preg w Shin-2 Jer Referring In Womens poor reprodctv or 6-201 Gabby. Provider: Gregory VIRAMONTES, obstet hx, first 7 700 Vignesh [address] triPap Smear Medical Marisela L, 1522, Screening, [address] Kevin CervixEncountamisha Small, [facility], for suprvsn of [address], [id number], normal , [facility] first trimester9 [place], [address]. tel: weeks gestation of [phone] [facility] . [id number] history of dis of tel: the nervous sys [id number] and sense organs Associates Nav Jan- Jer Referring In Womens 0-200 Gabby. Provider: Gregroy VIRAMONTES, 8 700 Vignesh [address] Medical Marisela L, 1522, [address] Kevin, [facility], [address], [address], , Kali StewarthersonFORMERLY [facility] [place], [address]. tel: [phone] tel:[phone] , . [id number] tel: [phone] Family History Family Member Diagnosis Age At [...] [employer] [place] - Medicaid [place] [id number] Social History Type Description Quantity Date Captured Unknown Vital Signs Date / Height Weight BMI Pulse Blood Temperature Respiratory Body Head BMI Time: Rate Pressure Rate Surface Circumference percentile Area Unknown Chief Complaint And Reason For Visit Unknown Chief Complaint And Reason For Visit Reason For Referral Reason For Referral Unknown Plan Of Care Date Type Action Status Appointment DeepakMonika concepcion BOOKED Future Order: Lab Order Pap Smear With [...]
--- OUTSIDE RECORDS SUMMARY | 2017-12-18 08:36 | External Medical Summary | Continuity of Care Document ---
:1985 Author Organization [facility] Care Team Providers Name Role Phone TARA HOGAN MD Unavailable Unavailable Insurance Providers Payer Name Policy Number Subscriber Name Relationship [facility] [id number] Monika mSith 18 Self / Same As Patient Advance Directives Directive Response Recorded Date/Time Advanced Directives Unknown 10/21/15 7:38pm Type Living Will 10/21/15 7:38pm Chief Complaint and Reason for Visit Chief Complaint Respiratory Complaint Reason for Visit Upper respiratory infection Problems Active Problems Medical Problem Onset Date [...] Strep tonsillitis ~07/26/2014 Resolved Toothache 01/14/2014 Resolved Upper respiratory infection Unknown Acute Urinary tract infection ~09/25/2015 Acute Medications Current Home Medications Medication Dose Units Route Directions Days/Qty Instructions Start Date [No Home Meds] Unknown As Needed 09/26/15 Dose Azithromycin 6 250 Mg ORAL See 6 Day One: Take 10/21/15 Tab/Pkt Instructions 2 tablets by mouth Days Two-Five: Take 1 tablet by mouth Past Home Medications Medication Directions Ordered Status [...] Mg Oral Ondansetron 4 Mg Tab.rapdis, 4 Mg Every 6 Hours as needed for 09/26/15 Discontinued Oral Nausea Ciprofloxacin 500 Mg Tablet, 500 Twice A Day 09/26/15 Discontinued Mg Oral Social History Query Response Start Date Stop Date Smoking Status Never smoker Hospital Discharge Instructions No hospital discharge instructions. Plan of Care Discharge Date 10/21/15 8:05pm Disposition 01 HOME OR SELF-CARE Instructions/Education Provided Upper Respiratory Infection (ED) Prescriptions See Medication Section Referrals TARA [...] worrisome symptoms. * Emergency Department phone number: [phone], x [phone]* MEDICAL RECORD If you need copies of your X-rays, call [phone] x [phone]. If you need copies of [...] services. SERVICE BILLING DEMOCRAT Emergency Room Services [facility] Physician Services [facility] X-rays [facility] Patients will receive bills for services from the appropriate provider. If you have any questions about your [facility] bill, our staff will be happy to assist you. Please call [phone], and ask for the billing department. THANK YOU for choosing [facility] as your emergency care provider! Care Plan and Goals ~~Discharge Care Plan~~ Problem: Breathing difficulty Goal: Able to breathe without shortness of air and perform usual activities. Instructions: Take medication(s) as directed. Follow physician discharge instructions. Follow up with primary care physician as directed. Use inhalers as needed. Functional Status No functional status results. Allergies, Adverse Reactions, Alerts Allergen Type Severity Reaction Status Last Updated Penicillin Allergy Unknown Active 05/10/12 Hydrocodone Adverse Reaction Mild ITCHING Active 09/18/14 latex Allergy Mild Active 10/15/12 Immunizations No immunization records. Vital Signs Acute Vital Signs Vital Response Date/Time Temperature (Fahrenheit) 97.8 10/21/2015 8:04pm Pulse 72 bpm 10/21/2015 8:04pm Respirations 16 10/21/2015 8:04pm Height 5 ft 2 in Weight 189 [...] 12:58am Urine Specific 1.025 1.005-1.030 09/26/2015 09/26/2015 [place] 12:34am 12:58am Urine Protein Negative Negative 09/26/2015 [...] GFR 113.8 09/26/2015 09/26/2015 (Non- 12:34am 1:09am [place]onese Glucose Level 101 mg/dL 70-110 09/26/2015 09/26/2015 [...] U/L 23-300 09/26/2015 09/26/2015 12:34am 1:09am Procedures Procedure Status Date Provider(s) COMPREHEN METABOLIC PANEL Completed 09/26/15 URINALYSIS AUTO W/O SCOPE Completed 09/26/15 MICROSCOPIC EXAM OF URINE Completed 09/26/15 URINE TEST Completed 09/26/15 ASSAY OF AMYLASE Completed 09/26/15 ASSAY OF LIPASE Completed 09/26/15 COMPLETE CBC W/AUTO DIFF WBC Completed 09/26/15 URINE BACTERIA CULTURE Completed 09/26/15 HYDRATE IV INFUSION ADD-ON Completed 09/26/15 THER/PROPH/DIAG INJ IV PUSH Completed 09/26/15 TX/PRO/DX INJ NEW DRUG ADDON Completed 09/26/15 EMERGENCY DEPT VISIT Completed 09/26/15 Completed 09/26/15 Completed 09/26/15 Completed 09/26/15 Completed 09/26/15 Encounters Encounter Location Arrival/Admit Date Discharge/Depart Date Attending Provider Departed Nav 10/21/15 7:37pm 10/21/15 8:05pm TARA ANDREWS Emergency Room [facility] Roya HODGSON Departed Nav 09/26/15 12:20am 09/26/15 1:50am LOUISE Emergency Room [facility] ENOCH Vargas DO Recent Diagnosis
--- OUTSIDE RECORDS SUMMARY | 2017-12-18 08:36 | External Medical Summary | Continuity of Care Document ---
:1985 Author Organization [facility] Address [address] [place], [place] [id number] Phone Care Team Providers Name Role Phone [...] NDC mg iron-800 mcg Oral route every [id number] tablet day Problems Condition Effective Dates (start - stop) Clinical Status Encounter for suprvsn of normal - , second trimester 20 weeks gestation of - Suprvsn of preg [...] Polycystic Ovarian Syndrome Active Procedures Procedure Date Ultrasound exam of preg uterus, complete Results Test Name Date and Time Measure Units Reference Range Abnormal Flag Comments Unknown Advance Directives Directive Yes / No Effective Date File Name Unknown Encounters Encounter Practice Location Reason(s) Diagnoses Date Provider Care Team Description For Visit [facility] Decreased Sep-2 Jer In Womens movements, second [facility], trimester, [id number] 7 700 PO Box weeks gestation Medical 1522, of [facility], pregnancyEncounte Skyler Small, r for suprvsn of 120, , normal , [place], second trimester [place], tel: [phone] , [place]. tel: [phone] [facility] Suprvsn of preg w Sep-1 Jer In Womens poor reprodctv or 9201 [facility], obstet hx, second 7 700 PO Box triLow lying Medical 1522, placenta NOS or [facility] [place], w/out hemorrhage, Skyler Small, second 120, [id number], [email or web address] weeks [place], gestation of [place], tel: pregnancyEncounte [phone] [id number] r for suprvsn of , [place]. normal , tel: second trimester [phone] [facility] Suprvsn of preg w Sep-0 Sobbing In Womens poor reprodctv or 7-201 Mick. [facility] WANDER, obstet hx, second 7 700 PO Box triLow lying Medical 1522, placenta NOS or [facility], w/out hemorrhage, Drive, [place], second Suite , [email or web address] weeks 120, [place] gestation of [place], tel: pregnancy[place] [id number], the nervous sys [place]. and sense organs tel: [phone] [facility] Encounter for Sep-0 Jer In Womens Ultrasound suprvsn of normal 7- [facility], , second 7 700 PO Box [id number] weeks Medical 1522, gestation of [facility], [facility], 120, , [place], [facility], tel:[phone] , [place]. tel: [phone] [facility] Suprvsn of preg w Jul- Jer Referring In Womens poor reprodctv or 2-201 Gabby. Provider: Health WANDER, obstet hx, second 7 700 Vignesh PO Box triEncounter for Medical Marisela L, 1522, suprvsn of normal Center [address] [place] [address], , second , [facility], [email or web address] weeks 120, Drive, , gestation [place] Nav [place], [place], [address]. tel: history of dis of [phone] tel: the nervous sys , [place]. [phone] and sense organs tel: [phone] [facility] 13 weeks May- Jer Referring In Womens gestation of 4-201 Gabby. Provider: Health WANDER, pregnancyEncounte 7 700 Vignesh PO Box r for suprvsn of Medical Marisela L, 1522, normal , Center [address] [place] [address], [facility] , [facility], trimesterPersonal 120, [address], , history of dis [place] Nav [place], [place], [address]. tel: and sense organs [phone] tel: , [place]. [id number] tel: [phone] [facility] Suprvsn of preg w May- Jer Referring In Womens poor reprodctv or 6-201 Gabby. Provider: Gregory VIRAMONTES, obstet hx, first 7 700 Vignesh PO Box triPap Smear Medical Marisela L, 1522, Screening, Center [address] CervixEncdona Small, [facility], for suprvsn of [address], [address], [id number], normal , Nav Stewart, first trimester9 [place], [address]. tel:2 weeks gestation [phone] tel: , . [phone] pregnancyPersonal tel: history of dis of [phone] the nervous sys and sense organs Associates [facility] Jer Referring In Womens 0-200 Gabby. Provider: Gregory VIRAMONTES, 8 700 Vignesh PO Box Medical Marisela L, 1522, Center [address], [facility], [address], [address], [id number], Nav [place], [place], [address]. tel: [phone] tel: , . [phone] tel: [phone] Family History Family Member Diagnosis Age At [...] [employer] Plan [place] - Medicaid [place] [id number] Social History Type Description Quantity Date Captured [...] Complete OB Ultrasound > 14 Ordered Weeks (41504) Date Type Problem Goal Intervention Status Start [...]
[2017-12-18] MEDS ORDERED: CEFAZOLIN PREMIX (MC ONLY) 2 GM/50 ML BAG IV ONE (09:00)
[2017-12-18 10:14] VITALS: BMI 41.4
[2017-12-18] MEDS: LR 1,000 ML IV PRN ×2 (10:16→18:40)
[2017-12-18] MEDS: D5LR 1,000 ML IV PRN (10:17)
[2017-12-18] MEDS ORDERED: NALOXONE 0.4 MG/ML INJECTION IVP PRN (11:20)
[2017-12-18] MEDS ORDERED: ONDANSETRON 4 MG/2 ML INJECTION IVP PRN (11:20)
[2017-12-18] MEDS ORDERED: DiphenhydrAMINE 50 MG/ML INJECTION IVP PRN (11:20)
[2017-12-18] MEDS ORDERED: ROPIVACAINE 1% 10MG/ML INJ 200 MG, SUFentanil 50 MCG in NS 100 ML EPI PRN (11:20)
--- NOTE | 2017-12-18 11:20 | Anesthesia Preoperative Report ---
Anesthesia Epidural/Spinal Rec - Date and Time Date: 12/18/17 Preoperative Diagnosis: Term induction Procedure: Labor Epidural Plan: Epidural - Vital Signs Vital Signs: Temperature 97.8 F 12/18/17 09:55 Pulse Rate 91 12/18/17 09:55 Respiratory Rate 20 12/18/17 09:55 Blood Pressure 124/61 12/18/17 09:55 Pulse Oximetry 97 12/18/17 09:55 /Para: P:3 - Medictaions & Allergies Inpatient Medications: Current Medications Acetaminophen (Tylenol) 500 - 1,000 mg PO Q4H PRN PRN Reason: Pain Al Hydroxide/Mg Hydroxide (Maalox Plus) 30 ml PO Q3H PRN PRN Reason: Indigestion Calcium Carbonate (Tums) 500 - 1,000 mg PO Q2H PRN PRN Reason: Indigestion Carboprost Tromethamine (Hemabate) 250 mcg IM O PRN PRN Reason: .Downtime Cefazolin Sodium 1 g/ Sodium (Chloride) 100 mls @ 200 mls/hr IV Q8H STANISLAV Dextrose/Lactated Ringer's (Dextrose 5%-Lactated Ringers) 1,000 mls @ 125 mls/ hr IV .Q8H PRN PRN Reason: Labor Last Admin: 12/18/17 10:17 Dose: 125 mls/hr Lactated Ringer's (Lactated Ringers) 1,000 mls @ 999 mls/hr IV .Q1H1M PRN Last Admin: 12/18/17 10:16 Dose: 999 mls/hr Oxytocin (Pitocin Drip) 30 unit in 500 mls @ 2 mls/hr IV .Q24H PRN; Protocol PRN Reason: Induction/Augmentation Last Admin: 12/18/17 09:15 Dose: 2 mls/hr Lidocaine HCl (Xylocaine-Mpf 1% Vial) 0.2 mg ID O PRN PRN Reason: IV Start Methylergonovine Maleate (Methergine) 0.2 mg IM O PRN Misoprostol (Cytotec) 800 mcg AK ONCE PRN Allergies/Adverse Reactions: Allergies Allergy/AdvReac Type Severity Reaction Status Date / Time Penicillins Allergy Mild Rash Verified 12/18/17 10:19 - Home Medications Home Medications: Home Medications Medication Instructions Recorded Confirmed Type Mapap Extra Strength 500 mg tablet 1,000 mg PO Q6H PRN 07/21/17 12/18/17 History - Medical History Respiratory: Reports: Bronchitis (chronic prior to tonsilectomy) DENIES: Asthma, Chronic Obstructive Pulmonary Disease (COPD), Dyspnea, Orthopnea, Pulmonary Embolism, Pneumonia, Upper Respiratory Infection, Pulmonary Edema, Sleep Apnea, Tuberculosis, Other Cardiovascular: DENIES: Abnormal EKG, Angina, Arrhythmia, Congestive Heart Failure, Coronary Artery Disease, Heart Murmur, Hypertension, Hypotension, High Cholesterol, Myocardial Infarction, Rheumatic Fever, Valvular Heart Disease, Other Gastrointestional: Reports: Morbid Obesity DENIES: Obstructive Bowel, Hepatitis, Cirrhosis, Nausea or Vomiting Present, Gastroesophageal Reflux Disease, Gastrointestinal Bleeding, Hiatal Hernia, Ulcer , Other Neuro/Musculoskeletal: Reports: Depression, Seizures (last 1 yr ago, no follow up) Denies: HX.MS.OSAR, Back Problems, Cerebrovascular Accident, Headaches, Loss of Consciousness, Muscle Weakness, Neuromuscular Disorder, Paralysis, Paresthesia, Syncope, Other Renal/Endocrine: DENIES: Diabetes Mellitus Type 1, Diabetes Mellitus Type 2, Renal Failure, Dialysis, Thyroid Disease, Weight Loss, Weight Gain, Other Other History: Reports: Now DENIES: Anesthesia Reactions, Blood Transfusions, Chemotherapy, Cancer, Hemophilia, Malignant Hyperthermia, Sickle Cell Disease, Other - Surgical History HEENT Surgeries: Reports: Tonsillectomy Endocrine Surgery/Treatments: Reports: Other (stent in pancreas) GI Surgery/Treatments: Reports: Cholecystectomy Musculoskeletal Surgery/Tx: Reports: Carpal Tunnel Release (bilateral) Reproductive Surgery/Treatment: DENIES: Section Anesthesia Reactions: None Hx Family Anesthesia Reaction: No History of Motion Sickness: No - Social History Smoking Status: Never smoker Second Hand Exposure: No Substance Use Type: does not use Alcohol Intake Frequency: does not drink Hx Chewing Tobacco Use: No - Pertinent Findings Lab Data: CBC and BMP 12/18/17 08:58 - Physical Exam Respiratory Exam: lungs clear, bilateral breath sounds equal Cardiovascular Exam: regular rate and rhythm, no murmur - Airway Assessment Mallampati Score: II TMD: 3 Fingerbreadths Neck Extension: good Overall Assessment: may be difficult mask vent, may be difficult intubation - ASA ASA Score: 3 - Discussion Discussion: Discussed risks/options/alternatives of anesthesia and questions answered. Patient consents. Nursing pain assessment noted. Anesthesia Discussion: spouse Attestation Statement: Prior to the delivery of any anesthetic medication, I examined the patient, developed the plan, obtained the patient's consent and discussed the risk and benefits of the procedure with the patient/guardian.
[2017-12-18] MEDS ORDERED: DIPHENHYDRAMINE 2% CREAM 28gm TOP PRN (13:42)
[2017-12-18] MEDS ORDERED: CEFAZOLIN 1 G in NS 100 ML IV SCH (17:00)
--- NOTE | 2017-12-18 17:32 | Labor and Delivery Note ---
- Labor and Delivery Labor and Delivery: Pt is comfortable with epidural, claudette q2 mins. FHT Cat 1. Heath bulb placed this afternoon after two attempts to AROM were unsuccessful. Still in place. Discussed lack of progress with pt. Rec stopping oxytocin, feeding, turning epidural off. Cont Heath bulb through tonight, then resume oxytocin 0400. She agrees with this plan. Q&A
[2017-12-18] MEDS ORDERED: ZOLPIDEM 10 MG TABLET PO PRN (17:53)
[2017-12-19] MEDS ORDERED: CEFAZOLIN 2 G in NS 100 ML IV SCH (04:00)
[2017-12-19] MEDS ORDERED: CEFAZOLIN PREMIX (MC ONLY) 2 GM/50 ML BAG IV ONE ×2 (04:08→18:01)
[2017-12-19] MEDS: D5LR 1,000 ML IV PRN ×2 (05:18→15:07)
--- NOTE | 2017-12-19 09:10 | OB/GYN Progress Note ---
- Pain Control Pain control: Tolerating well, Epidural - Pelvic Exam Dilation (cm): 4 Effacement (%): 60 station: -4 Amniotic membrane status: Intact Comments: AROM clear fluid, IUPC placed - Contractions Monitor mode: External Contraction pattern: Regular Contraction intensity: Moderate - Status status: Category l - Assessment and Plan Assessment: induction ongoing (AROM, IUPC placed. )
[2017-12-19] MEDS: CEFAZOLIN 1 G in NS 100 ML IV SCH ×4 (09:45→22:31)
[2017-12-19] MEDS ORDERED: LIDOCAINE 2%/EPI 1:200,000 20ml SDV PF ONE (14:24)
--- NOTE | 2017-12-19 17:16 | Progress Note ---
DATE OF DELIVERY 12/19/2017 Ms. Noel has labored through the day. We restarted Pitocin at approximately 4:00 a.m. Her Heath bulb came out around that time and she was 2.5 cm. Since then she has progressed to no more than 5 cm. She had an AROM of clear fluid and IUPM placed without difficulty at about 9 this morning. heart tones have been reassuring, category 1 throughout the day. We have struggled with pain control for Ms. Noel. She has had several adjustments to her epidural but now is comfortable and has slept well for the last hour. At this point heart tones are reassuring. I just replaced the IUPM that had come out. We are not able to monitor contractions on her at all. Her cervix to my exam is 5, thick and -3, essentially unchanged from the prior exam. I have discussed with Ms. Noel. We are going to monitor contractions with the IUPC and make sure they are adequate. If they are adequate and yet she is not progressing, will move toward . If they are not adequate we will work toward more Pitocin to get them adequate. She voices understanding with this. AMIE
[2017-12-19] MEDS ORDERED: CITRIC ACID/SODIUM CITRATE 30ml PO ONE (18:01)
[2017-12-19] MEDS ORDERED: CEFAZOLIN 1 G INJECTION IVP ONE (18:01)
[2017-12-19] MEDS ORDERED: FAMOTIDINE PB 20 MG/50 ML BAG IV ONE (18:01)
[2017-12-19] MEDS ORDERED: MORPHINE SULFATE PF 5mg/10ml INJ (Duramorph) ONE (19:02)
[2017-12-19] MEDS: LR 1,000 ML IV PRN (19:07)
[2017-12-19] MEDS ORDERED: TRANEXAMIC ACID 1,000 MG in NS 100 ML IV ONE (19:25)
[2017-12-19] MEDS ORDERED: FentaNYL 100 MCG/2 ML INJECTION ONE ×2 (19:26→19:27)
[2017-12-19] MEDS ORDERED: ONDANSETRON 4 MG/2 ML INJECTION ONE (19:28)
[2017-12-19] MEDS ORDERED: OXYTOCIN BOLUS BAG 30 UNIT/500 ML ML IV SCH (19:30)
[2017-12-19] MEDS ORDERED: CALCIUM CARBONATE Chewable 500mg TABLET PO PRN (19:47)
[2017-12-19] MEDS ORDERED: HYDROCORTISONE 2.5% CREAM 30gm RECTALLY PRN (19:47)
[2017-12-19] MEDS ORDERED: ACETAMINOPHEN 500 MG TABLET PO PRN (19:47)
[2017-12-19] MEDS ORDERED: SIMETHICONE 80 MG CHEWABLE TABLET PO PRN (19:47)
[2017-12-19] MEDS ORDERED: ONDANSETRON 4 MG/2 ML INJECTION IVP PRN (19:59)
[2017-12-19] MEDS ORDERED: NALOXONE 2 MG/2 ML INJECTION PFS IVP PRN (19:59)
[2017-12-19] MEDS ORDERED: NALBUPHINE 10 MG/ML INJECTION IVP PRN (19:59)
[2017-12-19] MEDS ORDERED: D5LR 1,000 ML IV SCH (20:00)
[2017-12-19] MEDS ORDERED: OXYTOCIN DRIP 30 UNIT/500 ML ML IV SCH (20:00)
[2017-12-19] MEDS: IBUPROFEN 800 MG TABLET PO SCH (22:00)
--- NOTE | 2017-12-19 22:38 | Anesthesia Postoperative Note ---
- Date and Time Date: 12/19/17 Time: 22:35 - Status Patient Participated in Evaluation: Patient Participated in Person Vital Signs: Temperature 97.8 F 12/18/17 09:55 Pulse Rate 91 12/18/17 09:55 Respiratory Rate 20 12/18/17 09:55 Blood Pressure 124/61 12/18/17 09:55 Pulse Oximetry 97 12/18/17 09:55 Respiratory Function: Airway Patent, Regular Respirations Cardiovascular Function: Regular Pulse Mental Status: Alert and Oriented Pain Intensity: 2 Hydration: Taking PO Fluids Complications During Recover: None Apparent - Follow-Up Instructions Instructions: Per Surgeon
[2017-12-19] MEDS: SIMETHICONE 80 MG CHEWABLE TABLET PO SCH (23:00)
[2017-12-20] MEDS: DiphenhydrAMINE 25 MG CAPSULE PO PRN ×2 (00:37→07:55)
--- NOTE | 2017-12-20 06:16 | OB/GYN Progress Note ---
OB-PP Progress Note - General PPD1 POD:: POD1 Maternal Group B Strep: Positive Maternal blood type: A+ Maternal Rubella Status: Immune - Subjective Date: 12/20/17 Lochia: Minimal Pain: controlled Voiding: voiding Nausea or Vomiting Present: No Subjective Comments: Pt walking in halls, reports feeling well. - Objective Vital Signs: Last Vital Signs Temp 98.6 F 12/20/17 04:30 Pulse 88 12/20/17 04:30 Resp 18 12/20/17 04:30 BP 119/88 12/20/17 04:30 Pulse Ox 96 12/20/17 04:30 Urine Output: good General: alert and oriented - Assessment Assessment: SP, Primary C/S Comments: CBC pending this morning. - Plan Plan: routine care
[2017-12-20] MEDS: IBUPROFEN 800 MG TABLET PO SCH ×4 (06:21→23:10)
[2017-12-20] MEDS: DOCUSATE CALCIUM 240 MG CAPSULE PO SCH (10:44)
[2017-12-20] MEDS: SIMETHICONE 80 MG CHEWABLE TABLET PO SCH ×4 (10:44→22:09)
[2017-12-20] MEDS: HYDROCODONE/APAP 5mg/325mg TABLET PO PRN ×2 (15:28→20:24)
--- NOTE | 2017-12-20 17:50 | Operative Note ---
DATE OF SURGERY 12/19/2017 PREOPERATIVE DIAGNOSIS Failure to progress. POSTOPERATIVE DIAGNOSIS Failure to progress. PROCEDURES Primary low transverse section. SURGEON Gabby Randle MD MANAGER MEDICAL DEVICE Crow Love MD ANESTHESIA Continuous epidural by Cuco Dubois CRNA EBL 1000 mL. DESCRIPTION OF PROCEDURE Ms. Noel was brought to the OR and placed on the OR table in a supine position with left lateral displacement. A Heath catheter had previously been placed to dependent drain. Her epidural levels were brought up to adequate surgical levels. Her abdomen was then prepped and draped in the usual sterile fashion. A Pfannenstiel skin incision was made with a sharp knife. This was carried down to fascia. Fascia was incised transversely. Fascia was then tented up. This was bluntly and sharply dissected free of rectus muscles. Rectus muscles were bluntly divided. Peritoneum was tented up and sharply entered and extended vertically. The bladder blade was inserted. The vesicouterine fold of peritoneum was tented up and incised transversely and a bladder flap bluntly created. The bladder blade was reinserted to protect the bladder. A low transverse uterine incision was made with a sharp knife. Baby was delivered in the vertex presentation without difficulty. Baby was bulb suctioned on the abdomen. Cord was doubly clamped and cut and the baby was given to Dr. Chavarria and his team for care. This was a liveborn female with Apgars of 7/9/9. She weighed 7 pounds, 7.6 ounces. The placenta was then manually removed intact. It had a normal configuration and normal-appearing three-vessel cord. The uterus was exteriorized and the cavity swept clear of clear of membranes. The myometrial incision was then reapproximated with a running, locking 0-Monocryl. There was an area of bleeding at the left end of the incision. This was controlled with a 2-0 chromic [id number] suture. We observed carefully for hemostasis which was under good control. The uterus, tubes and ovaries were noted to be grossly normal. The uterus was returned to the abdominal cavity. We then reinspected for hemostasis and removed gross blood clots from the abdomen. We reapproximated peritoneum with a running, nonlocking 2-0 Vicryl. Fascia was then closed with a running, nonlocking 0 Vicryl. Skin edges were reapproximated with subcuticular style 3-0 undyed Vicryl. The wound was dressed with Steri-Strips and sterile dressing. Counts were correct postoperatively x 2. The urine remained clear and free-flowing throughout the procedure. Ms. Noel was then transferred to recovery in stable condition. AMIE
[2017-12-21] MEDS: HYDROCODONE/APAP 5mg/325mg TABLET PO PRN ×3 (00:05→14:18)
[2017-12-21] MEDS: IBUPROFEN 800 MG TABLET PO SCH ×4 (00:05→14:08)
[2017-12-21 08:31] VITALS: RESP 16
[2017-12-21] MEDS: SIMETHICONE 80 MG CHEWABLE TABLET PO SCH ×2 (08:56→14:08)
[2017-12-21] MEDS: DOCUSATE CALCIUM 240 MG CAPSULE PO SCH (08:56)
[2017-12-21 14:41] VITALS: BP 120/79; PULSE 87; TEMP 97.8; O2SAT 97
== END 2017-12-21 15:26 | disposition home or self-care (01) | DRG 766 ==
LOC: MC 08:19
PROVIDERS: ADMIT Obstetrics & Gynecology; ATTEND Obstetrics & Gynecology